=== PATIENT | female | born 1960 | race Caucasian/White ===

== ENCOUNTER → 2020-12-06 09:55 | Outpatient (BNVA) | payer SELFPAY | PROVIDERS: Family Provider Family Medicine; PCP Family Medicine; Visit Provider Dermatology | DX: Z01.89 Encounter for other specified special examinations (principal) ==

== ENCOUNTER → 2021-03-07 09:21 | Outpatient (BNVA) | payer SELFPAY | PROVIDERS: Family Provider Family Medicine; PCP Family Medicine; Visit Provider Physician Assistant | DX: Z00.00 Encounter for general adult medical examination without abnormal findings (principal) ==

== ENCOUNTER 2021-03-09 13:39 | Emergency (ER) | payer MEDICAID, SELFPAY ==
[2021-03-09 14:23] VITALS: BP 169/100; PULSE 78; RESP 16; TEMP 36.6; O2SAT 96; BMI 22.4
--- NOTE | 2021-03-09 16:10 | CTR_ITS ---
PROCEDURE INFORMATION: Exam: CT Abdomen And Pelvis With Contrast Exam date and time: 03/09/2021 4:10 PM Age: 60 years old Clinical indication: Pain and abnormal findings; Abnormal lab test; Other: T bili elevation; Abdominal pain; Localized; Left lower quadrant (llq); Prior surgery; Surgery type: Bladder sling, hyst; Patient HX: Intermittent epigastric pain, llq pain, diarrhea. Difficulty urinating x 2-3 weeks; Additional info: Evaluate for cancer, t bili elevation TECHNIQUE: Imaging protocol: Computed tomography of the abdomen and pelvis with contrast. Total images: 225 Radiation optimization: All CT scans at this facility use at least one of these dose optimization techniques: automated exposure control; mA and/or kV adjustment per patient size (includes targeted exams where dose is matched to clinical indication); or iterative reconstruction. Contrast material: OMNI 300; Contrast volume: 95 ml; Contrast route: INTRAVENOUS (IV); COMPARISON: No relevant prior studies available. RADIATION DOSE METRICS: Total DLP (mGy-cm): 1008.15 FINDINGS: Lungs: Limited assessment of the lung bases fails to reveal evidence for active cardiopulmonary process. Liver: No visible hepatic mass or cystic structure. Mild hepatomegaly. Gallbladder and bile ducts: Enlarged hydropic gallbladder. No gallbladder wall thickening or pericholecystic fluid. No visible cholelithiasis. Gallbladder measures upwards of 13.3 cm in length. Intra and extrahepatic biliary ectasia with the common bile duct measuring upwards of 12 mm in diameter. No visible choledocholithiasis. No visible cholangiocarcinoma. No visible ampullary neoplasm or pancreatic head mass. Pancreas: Diffuse pancreatic ductal ectasia measuring upwards of eight mm. No visible pancreatic mass. Mildly dilated pancreatic duct of [place]. Spleen: Spleen unremarkable. Adrenal glands: Adrenal glands unremarkable. Kidneys and ureters: No hydronephrosis or perinephric fluid. No visible nephrolithiasis. Tiny cortical cyst equator left kidney. No follow-up recommended. Stomach and bowel: Diverticulosis coli, primarily the sigmoid colon, without visible evidence for acute diverticulitis. Nonobstructive bowel pattern. No visible adynamic or reactive ileus. Appendix: The appendix is visualized and appears noninflamed. Intraperitoneal space: No visible pneumoperitoneum or intraperitoneal ascites. No visible evidence of mesenteric lymphadenitis or active mesenteritis/panniculitis. Vasculature: The abdominal aorta is nonaneurysmal. Mild arterial sclerotic disease. Portal vein patent. Lymph nodes: No current visible evidence of active mesenteric or retroperitoneal lymphadenopathy. Urinary bladder: Urinary bladder unremarkable. Reproductive: Status post hysterectomy. Bones/joints: No visible active or acute osseous pathology. Soft tissues: Unremarkable. CT/CT abdomen pelvis w con* [id number] IMPRESSION: 1. Intra and extrahepatic biliary ectasia with common bile duct measuring upwards of 12 mm. No visible choledocholithiasis. 2. Diffuse pancreatic ductal ectasia measuring upwards of 8 mm. No visible pancreatic mass. 3. Enlarged hydropic gallbladder. No visible cholelithiasis. 4. Diverticulosis coli without evidence for acute diverticulitis. COMMENTS: Consistent with the [employer]'s Incidental Findings Committee white paper (J Am Lashell Radiol 2018): Any incidental renal lesion less than 1 cm or classified as too small to characterize, or any incidental cystic renal lesion characterized as simple-appearing, is likely benign. No follow-up imaging is recommended for these lesions per consensus recommendations based on imaging criteria. Radiation Dose CTDIVOL = (mGy): DLP = 1008.15 (mGy-cm)
--- NOTE | 2021-03-09 16:17 | ED_ITS ---
HPI - General Adult General: Chief complaint: Abdominal Pain Stated complaint: Abdominal Pain, Lack of Urination Time Seen by Provider: 03/09/21 15:34 History of Present Illness: HPI narrative: Patient is a 60-year-old female who presents the emergency room for complaints of intermittent epigastric and LLQ abdominal pain and concerns for elevated bilirubin. Patient was seen 2 days ago for routine blood work and was found to have a bilirubin of 4.4. The last 3 weeks, patient has had decreased p.o. intake and difficulty swallowing has noticed that her eyes has become progressively more jaundiced. Patient says that she also had pale stool came to the emergency room for evaluation since she does not have any appointments sooner. Patient denies any nausea/vomiting, fever/chills, diarrhea, melena hematochezia,. Patient says that she has had difficulty peeing and has noticed her urine appears darker. No recent weight loss Onset: 3 weeks ago Duration:3 weeks Location:home Severity:mild Review of Systems Narrative: Constitutional: No fever, no chills. HEENT: No vision changes, +jaundiced eye CV: No chest pain, no palpitations PULM: no cough, no dyspnea. GI: +abdominal pain, no N/V/D. +pale stool : No dysuria, +dark urine MSKEL: No muscle pain SKIN: No new rashes, no lesions. NEURO: No headache, no focal weakness. HEME: No visible bruises PSYCH: Normal mood [facility] Female Reproductive History: Date of last menstrual period: 09/08/20 Physical Exam Narrative: EXAM NARRATIVE: Head: Atraumatic Eyes: PERRL, +mild scleral icterus ENT: Mucous membrane moist NECK: Supple, ROM intact LUNGS: LCTAB, no crackles/rhonchi CV: RRR ABDOMEN: No focal TTP. NO guarding rebound, guarding, rigidity. No CVA tenderness to percussion. Neg Sam/Neg McBurney's point tenderness, no suprabupic tenderness to palpation. EXTREMITY: Normal ROM SKIN: No rash or erythema NEURO: Awake and alert, no focal motor deficits PSYCH: Normal mood and affect Course Vital Signs: Vital signs: Vital Signs Temperature 97.9 F 03/09/21 14:23 Pulse Rate 90 03/09/21 19:14 Respiratory Rate 18 03/09/21 19:14 Blood Pressure 157/96 03/09/21 16:26 Pulse Oximetry 98 03/09/21 19:14 MDM - General Adult MDM Narrative: Medical decision making narrative: 60-year-old female presents the emergency room for concerns of lab abnormality specifically AST/ALT and T bili. In addition, patient has other complaints including diarrhea, diffuse abdominal pain, pale stool, and jaundice. On exam, patient is hemodynamically stable. + Scleral icterus. No abdominal tenderness to palpation. Lab work-up showed sodium of 127, potassium of 3.0, T bili of 6.5 with direct bili of 5.6. AST 458, ALT of 808. All these numbers are significantly improved compared to 2 days ago. UA negative for UTI. On CT abdomen pelvis, patient is found to have biliary ectasia with pancreatic ectasia. There is no visual ization of stone. The present time, patient has been afebrile, with normal white count. No suspicion for acute cholangitis further acute infection. Case was discussed with Dr. Monreal at [facility] in [place] who recommended outpatient ERCP for biopsy and additional follow-up. At this time, on reassessment, patient tolerated p.o. without any difficulty. I explained the electrolyte abnormality. Patient tolerated potassium tablet (40mEq) without any difficulty. I explained that her sodium was also a little bit on the lower side. Patient agrees with findings and plans to take salt tablets and eat salty food. Patient aware that she will receive a phone call from Dr. Monreal office in the next few days to schedule her for outpatient ERCP. Disposition: Discharge. Patient is given strict return precaution for any signs of fever chills, worsening abdominal pain, nausea/vomiting, worsening jaundice, or any new or concerning complaints. Lab Data: Labs: Lab Results 03/09/21 03/09/21 03/09/21 16:36 16:55 16:55 WBC 5.0 10^3/uL 10^3/ uL (4.0-10.0) RBC 4.05 10^6/uL L 10 ^6/uL (4.1-5.3) Hgb 12.1 g/dL g/dL (11.5-15.3) Hct 35.7 % L % (37.0-47.0) MCV 88.1 fl fl (81-99) MCH 29.9 pg pg (28.0-34.0) MCHC 33.9 g/dL g/dL (30.0-36.0) RDW 12.7 % % (12.1-15.1) Plt Count 179 10^3/cmm 10^3 /cmm (130-400) MPV 10.4 fL fL (7.4-10.4) Neut % (Auto) 63.7 % % Lymph % (Auto) 25.5 % % [place] % (Auto) 9.0 % % Eos % (Auto) 0.8 % % Baso % (Auto) 0.8 % % Neut # (Auto) 3.20 10^3/uL 10^3 /uL (1.8-7.7) Lymph # (Auto) 1.3 10^3/uL 10^3/ uL (0.8-4.8) [place] # (Auto) 0.5 10^3/uL 10^3/ uL (0.2-0.9) Eos # (Auto) 0.0 10^3/uL 10^3/ uL (0.0-0.8) Baso # (Auto) 0.0 10^3/uL 10^3/ uL (0.0-0.1) Nucleated RBC % (a uto) 0 % % Nucleated RBCs # 0.0 /100WBC /100W BC PT INR APTT Sodium 127 mmol/L L mmol /L (136-145) Potassium 3.0 mmol/L L mmol /L (3.5-5.1) Chloride 87 mmol/L L mmol/ L (98-107) Carbon Dioxide 25 mmol/L mmol/L (22-29) Anion Gap 18.0 (5-19) BUN 7 mg/dL L mg/dL (8-23) Creatinine 0.4 mg/dL L mg/dL (0.5-0.9) GFR Calculation 162.3 mL/min H mL /min (90-130) Glucose 112 mg/dL mg/dL (65-115) Calculated Osmolal ity 263 mOsm/kg L mOs m/kg (285-295) Calcium 9.3 mg/dL mg/dL (8.5-10.5) Total Bilirubin 6.5 mg/dL H mg/dL (0.15-1.2) Direct Bilirubin 5.60 mg/dL H mg/d L (0.00-0.30) GGT 387 U/L H U/L (5-36) AST 458 U/L H U/L (0-32) ALT 808 U/L H U/L (0-33) Alkaline Phosphata se 230 IU/L H IU/L (35-105) Total Protein 6.6 g/dL g/dL (6.6-8.7) Albumin 4.4 g/dL g/dL (3.5-5.2) Globulin 2.2 g/dL g/dL (1.3-4.6) Lipase 69 U/L H U/L (13-60) Urine Color Yellow (Yellow) Urine Appearance Clear (CLEAR) Urine pH 5 (5-7) Ur Specific Gravit y 1.010 (1.005-1.030) Urine Protein Neg (Negative) Urine Glucose (UA) Norm (Normal) Urine Ketones 1+ H (Negative) Urine Blood Neg (Negative) Urine Nitrate Negative (Negative) Urine Bilirubin Neg (Negative) Urine Urobilinogen Norm mg/dL mg/dL (Negative) Ur Leukocyte Sada ase Negative (Negative) 03/09/21 16:55 WBC RBC Hgb Hct MCV MCH MCHC RDW Plt Count MPV Neut % (Auto) Lymph % (Auto) [place] % (Auto) Eos % (Auto) Baso % (Auto) Neut # (Auto) Lymph # (Auto) [place] # (Auto) Eos # (Auto) Baso # (Auto) Nucleated RBC % (a uto) Nucleated RBCs # PT 13.10 SECONDS SEC ONDS (12.1-14.9) INR 0.96 (0.8-1.2) APTT 33.3 SECONDS SECO NDS (23.9-36.7) Sodium Potassium Chloride Carbon Dioxide Anion Gap BUN Creatinine GFR Calculation Glucose Calculated Osmolal ity Calcium Total Bilirubin Direct Bilirubin GGT AST ALT Alkaline Phosphata se Total Protein Albumin Globulin Lipase Urine Color Urine Appearance Urine pH Ur Specific Gravit y Urine Protein Urine Glucose (UA) Urine Ketones Urine Blood Urine Nitrate Urine Bilirubin Urine Urobilinogen Ur Leukocyte Sada ase Imaging Data^: Other Imaging: Radiologist's impression: [address] [id number] Scan ReportSigned Patient: Angelique Aggarwal #: [id number]: 1960Acct#:[id number]/Sex: 60 / FADM Date: 03/09/21Loc: ERRoom/Bed:Attending Dr: Ordering Provider/Ordering MD: Yee Edwards MD Date of Service: 03/09/21 Procedure(s): CT abdomen pelvis w con* [id number] Accession Number(s): [id number] Report Number: [id number] PROCEDURE INFORMATION: Exam: CT Abdomen And Pelvis With Contrast Exam date and time: 03/09/2021 4:10 PM Age: 60 years old Clinical indication: Pain and abnormal findings; Abnormal lab test; Other: T bili elevation; Abdominal pain; Localized; Left lower quadrant (llq); Prior surgery; Surgery type: Bladder sling, hyst; Patient HX: Intermittent epigastric pain, llq pain, diarrhea. Difficulty urinating x 2-3 weeks; Additional info: Evaluate for cancer, t bili elevation TECHNIQUE: Imaging protocol: Computed tomography of the abdomen and pelvis with contrast. Total images: 225 Radiation optimization: All CT scans at this facility use at least one of these dose optimization techniques: automated exposure control; mA and/or kV adjustment per patient size (includes targeted exams where dose is matched to clinical indication); or iterative reconstruction. Contrast material: OMNI 300; Contrast volume: 95 ml; Contrast route: INTRAVENOUS (IV); COMPARISON: No relevant prior studies available. RADIATION DOSE METRICS: Total DLP (mGy-cm): 1008.15 FINDINGS: Lungs: Limited assessment of the lung bases fails to reveal evidence for active cardiopulmonary process. Liver: No visible hepatic mass or cystic structure. Mild hepatomegaly. Gallbladder and bile ducts: Enlarged hydropic gallbladder. No gallbladder wall thickening or pericholecystic fluid. No visible cholelithiasis. Gallbladder measures upwards of 13.3 cm in length. Intra and extrahepatic biliary ectasia with the common bile duct measuring upwards of 12 mm in diameter. No visible choledocholithiasis. No visible cholangiocarcinoma. No visible ampullary neoplasm or pancreatic head mass. Pancreas: Diffuse pancreatic ductal ectasia measuring upwards of eight mm. No visible pancreatic mass. Mildly dilated pancreatic duct of [place]. Spleen: Spleen unremarkable. Adrenal glands: Adrenal glands unremarkable. Kidneys and ureters: No hydronephrosis or perinephric fluid. No visible nephrolithiasis. Tiny cortical cyst equator left kidney. No follow-up recommended. Stomach and bowel: Diverticulosis coli, primarily the sigmoid colon, without visible evidence for acute diverticulitis. Nonobstructive bowel pattern. No visible adynamic or reactive ileus. Appendix: The appendix is visualized and appears noninflamed. Intraperitoneal space: No visible pneumoperitoneum or intraperitoneal ascites. No visible evidence of mesenteric lymphadenitis or active mesenteritis/panniculitis. Vasculature: The abdominal aorta is nonaneurysmal. Mild arterial sclerotic disease. Portal vein patent. Lymph nodes: No current visible evidence of active mesenteric or retroperitoneal lymphadenopathy. Urinary bladder: Urinary bladder unremarkable. Reproductive: Status post hysterectomy. Bones/joints: No visible active or acute osseous pathology. Soft tissues: Unremarkable. CT/CT abdomen pelvis w con* [id number] IMPRESSION: 1. Intra and extrahepatic biliary ectasia with common bile duct measuring upwards of 12 mm. No visible choledocholithiasis. 2. Diffuse pancreatic ductal ectasia measuring upwards of 8 mm. No visible pancreatic mass. 3. Enlarged hydropic gallbladder. No visible cholelithiasis. 4. Diverticulosis coli without evidence for acute diverticulitis. COMMENTS: Consistent with the [employer]'s Incidental Findings Committee white paper (J Am Lashell Radiol 2018): Any incidental renal lesion less than 1 cm or classified as too small to characterize, or any incidental cystic renal lesion characterized as simple-appearing, is likely benign. No follow-up imaging is recommended for these lesions per consensus recommendations based on imaging criteria. Radiation Dose CTDIVOL = (mGy): DLP = 1008.15 (mGy-cm) Dictated By:Rubens Franco By:Rubens Franco Date/Time:03/09/21 1728DD/ [facility] [id number] Scan ReportSigned Patient: Angelique Aggarwal #: [id number]: 1960Acct#:[id number]/Se x: 60 / FADM Date: 03/09/21Loc: ERRoom/Bed:Attending Dr: Ordering Provider/Ordering MD: Yee Edwards MD Date of Service: 03/09/21 Procedure(s): CT abdomen pelvis w con* [id number] Accession Number(s): [id number] Report Number: [id number] PROCEDURE INFORMATION: Exam: CT Abdomen And Pelvis With Contrast Exam date and time: 03/09/2021 4:10 PM Age: 60 years old Clinical indication: Pain and abnormal findings; Abnormal lab test; Other: T bili elevation; Abdominal pain; Localized; Left lower quadrant (llq); Prior surgery; Surgery type: Bladder sling, hyst; Patient HX: Intermittent epigastric pain, llq pain, diarrhea. Difficulty urinating x 2-3 weeks; Additional info: Evaluate for cancer, t bili elevation TECHNIQUE: Imaging protocol: Computed tomography of the abdomen and pelvis with contrast. Total images: 225 Radiation optimization: All CT scans at this facility use at least one of these dose optimization techniques: automated exposure control; mA and/or kV adjustment per patient size (includes targeted exams where dose is matched to clinical indication); or iterative reconstruction. Contrast material: OMNI 300; Contrast volume: 95 ml; Contrast route: INTRAVENOUS (IV); COMPARISON: No relevant prior studies available. RADIATION DOSE METRICS: Total DLP (mGy-cm): 1008.15 FINDINGS: Lungs: Limited assessment of the lung bases fails to reveal evidence for active cardiopulmonary process. Liver: No visible hepatic mass or cystic structure. Mild hepatomegaly. Gallbladder and bile ducts: Enlarged hydropic gallbladder. No gallbladder wall thickening or pericholecystic fluid. No visible cholelithiasis. Gallbladder measures upwards of 13.3 cm in length. Intra and extrahepatic biliary ectasia with the common bile duct measuring upwards of 12 mm in diameter. No visible choledocholithiasis. No visible cholangiocarcinoma. No visible ampullary neoplasm or pancreatic head mass. Pancreas: Diffuse pancreatic ductal ectasia measuring upwards of eight mm. No visible pancreatic mass. Mildly dilated pancreatic duct of [place]. Spleen: Spleen unremarkable. Adrenal glands: Adrenal glands unremarkable. Kidneys and ureters: No hydronephrosis or perinephric fluid. No visible nephrolithiasis. Tiny cortical cyst equator left kidney. No follow-up recommended. Stomach and bowel: Diverticulosis coli, primarily the sigmoid colon, without visible evidence for acute diverticulitis. Nonobstructive bowel pattern. No visible adynamic or reactive ileus. Appendix: The appendix is visualized and appears noninflamed. Intraperitoneal space: No visible pneumoperitoneum or intraperitoneal ascites. No visible evidence of mesenteric lymphadenitis or active mesenteritis/panniculitis. Vasculature: The abdominal aorta is nonaneurysmal. Mild arterial sclerotic disease. Portal vein patent. Lymph nodes: No current visible evidence of active mesenteric or retroperitoneal lymphadenopathy. Urinary bladder: Urinary bladder unremarkable. Reproductive: Status post hysterectomy. Bones/joints: No visible active or acute osseous pathology. Soft tissues: Unremarkable. CT/CT abdomen pelvis w con* [id number] IMPRESSION: 1. Intra and extrahepatic biliary ectasia with common bile duct measuring upwards of 12 mm. No visible choledocholithiasis. 2. Diffuse pancreatic ductal ectasia measuring upwards of 8 mm. No visible pancreatic mass. 3. Enlarged hydropic gallbladder. No visible cholelithiasis. 4. Diverticulosis coli without evidence for acute diverticulitis. COMMENTS: Consistent with the [employer] [place]'s Incidental Findings Committee white paper (J Am Lashell Radiol 2018): Any incidental renal lesion less than 1 cm or classified as too small to characterize, or any incidental cystic renal lesion characterized as simple-appearing, is likely benign. No follow-up imaging is recommended for these lesions per consensus recommendations based on imaging criteria. Radiation Dose CTDIVOL = (mGy): DLP = 1008.15 (mGy-cm) Dictated By:Rubens Franco By:Rubens Franco Date/Time:03/09/211727DD/ 25 Discharge Plan Discharge Patient Disposition: Home Clinical Impression: Elevated bilirubin, Elevated AST (SGOT), Elevated ALT measurement, Biliary ectasia, Hyponatremia, Hypokalemia Condition: Stable Prescriptions: No Action lisinopril-hydrochlorothiazide 20-12.5 mg tablet 1 tab PO QAM RF: 0 Pepcid 20 mg Tablet 20 mg PO DAILY PRN (Reason: Acid Reflux) RF: 0 Pepto-Bismol 262 mg Tablet,Chewable 262 mg PO PRN RF: 0 fluticasone propionate 50 mcg/actuation spray,suspension 2 spray INTRANASAL DAILY PRN (Reason: Allergy Symptoms) RF: 0 Discharge Orders: Discharge ED (Routine); Ordered 03/09/21 Ordered By: Yee Edwards Referrals: Kristina Orellana PA [Primary Care Provider] - Discharge Diet: Advance as tolerated Discharge Activity: Resume usual activity Patient Instructions: Endoscopic Retrograde Cholangiopancreatography (GEN), Magnetic Resonance Cholangiopancreatography (ED), Jaundice (ED) Activity Restrictions/Additional Instructions: [facility] [place], [place] [id number] Scan ReportSigned Patient: Angelique Aggarwal #: [id number]: 1960Acct#:[id number]/Sex: 60 / FADM Date: 03/09/21Loc: ERRoom/Bed:A ttending Dr: Ordering Provider/Ordering MD: Yee Edwards MD Date of Service: 03/09/21 Procedure(s): CT abdomen pelvis w con* [id number] Accession Number(s): [id number] Report Number: [id number] PROCEDURE INFORMATION: Exam: CT Abdomen And Pelvis With Contrast Exam date and time: 03/09/2021 4:10 PM Age: 60 years old Clinical indication: Pain and abnormal findings; Abnormal lab test; Other: T bili elevation; Abdominal pain; Localized; Left lower quadrant (llq); Prior surgery; Surgery type: Bladder sling, hyst; Patient HX: Intermittent epigastric pain, llq pain, diarrhea. Difficulty urinating x 2-3 weeks; Additional info: Evaluate for cancer, t bili elevation TECHNIQUE: Imaging protocol: Computed tomography of the abdomen and pelvis with contrast. Total images: 225 Radiation optimization: All CT scans at this facility use at least one of these dose optimization techniques: automated exposure control; mA and/or kV adjustment per patient size (includes targeted exams where dose is matched to clinical indication); or iterative reconstruction. Contrast material: OMNI 300; Contrast volume: 95 ml; Contrast route: INTRAVENOUS (IV); COMPARISON: No relevant prior studies available. RADIATION DOSE METRICS: Total DLP (mGy-cm): 1008.15 FINDINGS: Lungs: Limited assessment of the lung bases fails to reveal evidence for active cardiopulmonary process. Liver: No visible hepatic mass or cystic structure. Mild hepatomegaly. Gallbladder and bile ducts: Enlarged hydropic gallbladder. No gallbladder wall thickening or pericholecystic fluid. No visible cholelithiasis. Gallbladder measures upwards of 13.3 cm in length. Intra and extrahepatic biliary ectasia with the common bile duct measuring upwards of 12 mm in diameter. No visible choledocholithiasis. No visible cholangiocarcinoma. No visible ampullary neoplasm or pancreatic head mass. Pancreas: Diffuse pancreatic ductal ectasia measuring upwards of eight mm. No visible pancreatic mass. Mildly dilated pancreatic duct of [place]. Spleen: Spleen unremarkable. Adrenal glands: Adrenal glands unremarkable. Kidneys and ureters: No hydronephrosis or perinephric fluid. No visible nephrolithiasis. Tiny cortical cyst equator left kidney. No follow-up recommended. Stomach and bowel: Diverticulosis coli, primarily the sigmoid colon, without visible evidence for acute diverticulitis. Nonobstructive bowel pattern. No visible adynamic or reactive ileus. Appendix: The appendix is visualized and appears noninflamed. Intraperitoneal space: No visible pneumoperitoneum or intraperitoneal ascites. No visible evidence of mesenteric lymphadenitis or active mesenteritis/panniculitis. Vasculature: The abdominal aorta is nonaneurysmal. Mild arterial sclerotic disease. Portal vein patent. Lymph nodes: No current visible evidence of active mesenteric or retroperitoneal lymphadenopathy. Urinary bladder: Urinary bladder unremarkable. Reproductive: Status post hysterectomy. Bones/joints: No visible active or acute osseous pathology. Soft tissues: Unremarkable. CT/CT abdomen pelvis w con* [id number] IMPRESSION: 1. Intra and extrahepatic biliary ectasia with common bile duct measuring upwards of 12 mm. No visible choledocholithiasis. 2. Diffuse pancreatic ductal ectasia measuring upwards of 8 mm. No visible pancreatic mass. 3. Enlarged hydropic gallbladder. No visible cholelithiasis. 4. Diverticulosis coli without evidence for acute diverticulitis. COMMENTS: Consistent with the [place] [place] [employer]'s Incidental Findings Committee white paper (J Am Lashell Radiol 2018): Any incidental renal lesion less than 1 cm or classified as too small to characterize, or any incidental cystic renal lesion characterized as simple-appearing, is likely benign. No follow-up imaging is recommended for these lesions per consensus recommendations based on imaging criteria. Radiation Dose CTDIVOL = (mGy): DLP = 1008.15 (mGy-cm) Dictated By:Rubens Franco By:Rubens Franco Date/Time:03/09/218DD/ 172 Coding Level of Care Code ED Shrinker for [facility] [place]
[2021-03-09 16:26] VITALS: BP 157/96; PULSE 80; RESP 18; O2SAT 97
[2021-03-09] MEDS: iohexol 300 mg/mL 100 mL Btl IV (16:38)
[2021-03-09] MEDS: sodium chloride 0.9% 1,000 ML 999 ML IV (16:55)
[2021-03-09 17:08] LABS: Add Urine Microscopic? NO; Charge for UA Resulting for Rev
[2021-03-09 17:09] LABS: Basophils % 0.8 %; Eosinophils % 0.8 %; Hematocrit 35.7 % (37.0-47.0); Hemoglobin 12.1 g/dL (11.5-15.3); Lymphocytes # 1.3 10^3/uL (0.8-4.8); Lymphocytes % 25.5 %; Mean Corpuscular HGB Conc 33.9 g/dL (30.0-36.0); Mean Corpuscular Hemoglobin 29.9 pg (28.0-34.0); Mean Corpuscular Volume 88.1 fl (81-99); Mean Platelet Volume 10.4 fL (7.4-10.4); Monocytes # 0.5 10^3/uL (0.2-0.9); Neutrophils % 63.7 %; Nucleated Red Blood Cells % 0 %; Platelet Count 179 10^3/cmm (130-400); Red Blood Count 4.05 10^6/uL (4.1-5.3); Red Cell Distribution Width 12.7 % (12.1-15.1)
[2021-03-09 17:23] LABS: Bilirubin Urine Neg (Negative); Blood Urine Neg (Negative); Glucose Urine UA Norm (Normal); Ketones Urine 1+ (Negative); Leukocyte Esterase Urine Negative (Negative); Nitrate Urine Negative (Negative); Protein Urine Neg (Negative); Urine Appearance Clear (CLEAR); Urine Color Yellow (Yellow); Urobilinogen Urine Norm (Negative); pH Urine 5 (5-7)
[2021-03-09 17:38] LABS: Albumin Level 4.4 g/dL (3.5-5.2); Alkaline Phosphatase 230 IU/L (35-105); Aspartate Amino Transferase 458 U/L (0-32); Blood Urea Nitrogen 7 mg/dL (8-23); Calcium 9.3 mg/dL (8.5-10.5); Carbon Dioxide 25 mmol/L (22-29); Chloride 87 mmol/L (98-107); Gamma Glutamyl Transferase 387 U/L (5-36); Globulin 2.2 g/dL (1.3-4.6); Glomerular Filtration Rate 162.3 mL/min (90-130); Glucose 112 mg/dL (65-115); Lipase 69 U/L (13-60); Osmolality Calculated 263 mOsm/kg (285-295); Sodium 127 mmol/L (136-145); Total Bilirubin 6.5 mg/dL (0.15-1.2); Total Protein 6.6 g/dL (6.6-8.7)
[2021-03-09 17:50] LABS: Alanine Aminotransferase 808 U/L (0-33)
[2021-03-09 18:55] LABS: INR 0.96 (0.8-1.2)
[2021-03-09 18:56] LABS: Partial Thromboplastin Time 33.3 SECONDS (23.9-36.7)
[2021-03-09] MEDS: potassium chloride ER 20 mEq Tablet 40 MEQ PO (19:09)
[2021-03-09 19:14] VITALS: PULSE 90; RESP 18; O2SAT 98
== END 2021-03-09 19:16 | disposition home or self-care (01) ==
PROVIDERS: Emergency Provider Emergency Medicine; PCP Physician Assistant
DX: E87.1 Hypo-osmolality and hyponatremia (principal); E87.6 Hypokalemia; E80.6 Other disorders of bilirubin metabolism; R74.01 Elevation of levels of liver transaminase levels; K83.8 Other specified diseases of biliary tract
CPT/HCPCS: 74177; 80053; 81003; 82248; 82977; 83690; 85025; 85610; 85730; 96360; 99283; J7030; Q9967

== ENCOUNTER 2021-05-18 13:14 | Emergency (ER) | payer BC, MEDICAID, SELFPAY ==
[2021-05-18] VITALS (9 sets, daily range): BP systolic 117–129; BP diastolic 64–75; PULSE 62–79; RESP 16–19; TEMP 36.7; O2SAT 97–100; BMI 22.9
--- NOTE | 2021-05-18 13:55 | ED_ITS ---
HPI - Fever General: Chief Complaint: Fever Stated Complaint: FEVER/R ABD PAIN/SENT FROM Time Seen by Provider: 05/18/21 13:54 History of Present Illness: HPI Narrative: Ms Aggarwal is a 60-year-old lady with significant recent history of biliary stent after ERCP and subsequently found to have pancreatic cancer who is not yet started chemotherapy who presents to the emergency department due to abdominal pain. Symptom onset was 4 days ago, she notes right upper quadrant abdominal pain which is sharp and even with minimal palpation. At times it catches her breath. She endorses associated fever and generalized malaise. She has had poor p.o. intake. No acute changes in bowel habits or hematemesis. No other focal source of infection. Overall the course of symptoms has persisted. Intensity is moderate to severe when present. No other known specific changes in health, exacerbating, or relieving factors identified. Review of Systems General: Reports: 10 or more systems reviewed and unremarkable except in HPI and below [facility] ED Female Reproductive History: Date of last menstrual period: 09/08/20 Physical Exam Narrative: EXAM NARRATIVE: GENERAL/CONSTITUTIONAL -somewhat ill-appearing. No acute distress. Eyes -no scleral icterus, no conjunctival injection ENMT - Atraumatic external nose and ears. Moist mucous membranes NECK - supple. trachea midline CARDIOVASCULAR - regular rate and rhythm. Normal peripheral perfusion RESPIRATORY -clear to auscultation bilaterally. ABDOMEN/GI -right upper quadrant abdominal tenderness to palpation, no evidence of remote peritonitis. MSK - Extremities without obvious deformity or tenderness to palpation SKIN - Warm, Dry NEURO - alert and appropriately oriented. Moves all extremities equally. Course ED course: - Patient was seen and evaluated by me at bedside - Patient placed on cardiac monitors, IV access obtained - Initial evaluation notable for no jaundice but patient does have right upper quadrant tenderness to palpation. Patient is nontoxic. - Labs notable for no leukocytosis. Metabolic panel notable for hypokalemia, replenishment ordered. Additional, more concerning findings, include elevated total bilirubin, elevated AST and ALT and alk phos. - Imaging notable for increased distention of biliary and pancreatic duct concerning for stent malfunction. - Medical decision making is highly complex given that I do not have imaging or laboratory studies in the interval since stent placement, records requested by have not arrived yet. I did discuss the case with the initial stent placing facility GI on air host. He agrees that findings are very concerning for stent malfunction especially given elevated bilirubin. Almost certainly the patient's labs had improved with normalization of bilirubin after stenting. Unfortunately they do not have beds to accept transfer. - Upon serial reexamination after treatment the patient was mildly improved. - Given findings and history of fevers antibiotics ordered. - Based on patient history, evaluation, labs, and imaging as interpreted the most likely cause of the patient's condition is biliary stent malfunction. - The results of ED evaluation were discussed with the patient including plan for transfer to a facility that has capability to manage biliary stent malfunction including ERCP. - Patient accepted to [facility] in [facility], discussed with accepting provider and GI. - Patient care handed off to overnight ED physician pending transport out of emergency department. Vital Signs: Vital signs: Vital Signs Temperature 98.1 F 05/18/21 13:36 Pulse Rate 65 05/18/21 18:00 Respiratory Rate 17 05/18/21 18:00 Blood Pressure 114/74 05/19/21 00:00 Pulse Oximetry 100 05/18/21 19:00 MDM - Fever Medical Records: Attestation: I reviewed the patient's medical records. Lab Data: Attestation: I reviewed the patient's lab results. Labs: Lab Results 05/18/21 05/18/21 05/18/21 14:20 14:20 14:30 WBC 6.6 10^3/uL 10^3/ uL (4.0-10.0) RBC 4.07 10^6/uL L 10 ^6/uL (4.1-5.3) Hgb 12.0 g/dL g/dL (11.5-15.3) Hct 35.4 % L % (37.0-47.0) MCV 87.0 fl fl (81-99) MCH 29.5 pg pg (28.0-34.0) MCHC 33.9 g/dL g/dL (30.0-36.0) RDW 12.8 % % (12.1-15.1) Plt Count 144 10^3/cmm 10^3 /cmm (130-400) MPV 10.8 fL H fL (7.4-10.4) Neut % (Auto) 86.8 % % Lymph % (Auto) 6.2 % % [place] % (Auto) 6.2 % % Eos % (Auto) 0.2 % % Baso % (Auto) 0.3 % % Neut # (Auto) 5.71 10^3/uL 10^3 /uL (1.8-7.7) Lymph # (Auto) 0.4 10^3/uL L 10^ 3/uL (0.8-4.8) [place] # (Auto) 0.4 10^3/uL 10^3/ uL (0.2-0.9) Eos # (Auto) 0.0 10^3/uL 10^3/ uL (0.0-0.8) Baso # (Auto) 0.0 10^3/uL 10^3/ uL (0.0-0.1) Nucleated RBC % (a uto) 0 % % Nucleated RBCs # 0.0 /100WBC /100W BC Sodium 134 mmol/L L mmol /L (136-145) Potassium 2.8 mmol/L L* mmo l/L (3.5-5.1) Chloride 97 mmol/L L mmol/ L (98-107) Carbon Dioxide 25 mmol/L mmol/L (22-29) Anion Gap 14.8 (5-19) BUN 4 mg/dL L mg/dL (8-23) Creatinine 0.6 mg/dL mg/dL (0.5-0.9) GFR Calculation 101.6 mL/min mL/m in (90-130) Glucose 159 mg/dL H mg/dL (65-115) Calculated Osmolal ity 278 mOsm/kg L mOs m/kg (285-295) Calcium 8.0 mg/dL L mg/dL (8.5-10.5) Magnesium 1.8 mg/dL mg/dL (1.7-2.3) Total Bilirubin 2.6 mg/dL H mg/dL (0.15-1.2) AST 441 U/L H U/L (0-32) ALT 341 U/L H U/L (0-33) Alkaline Phosphata se 591 IU/L H IU/L (35-105) Total Protein 6.1 g/dL L g/dL (6.6-8.7) Albumin 3.9 g/dL g/dL (3.5-5.2) Globulin 2.2 g/dL g/dL (1.3-4.6) Lipase 5 U/L L U/L (13-60) Urine Color Urine Appearance Urine pH Ur Specific Gravit y Urine Protein Urine Glucose (UA) Urine Ketones Urine Blood Urine Nitrate Urine Bilirubin Urine Urobilinogen Ur Leukocyte Sada ase SARS-CoV-2 Ag (Rap id) 05/18/21 05/18/21 16:20 20:20 WBC RBC Hgb Hct MCV MCH MCHC RDW Plt Count MPV Neut % (Auto) Lymph % (Auto) Th[place]mort[place] % (Auto) Eos % (Auto) Baso % (Auto) Neut # (Auto) Lymph # (Auto) [place]mort[place] # (Auto) Eos # (Auto) Baso # (Auto) Nucleated RBC % (a uto) Nucleated RBCs # Sodium Potassium Chloride Carbon Dioxide Anion Gap BUN Creatinine GFR Calculation Glucose Calculated Osmolal ity Calcium Magnesium Total Bilirubin AST ALT Alkaline Phosphata se Total Protein Albumin Globulin Lipase Urine Color Yellow (Yellow) Urine Appearance Clear (CLEAR) Urine pH 7 (5-7) Ur Specific Gravit y 1.005 (1.005-1.030) Urine Protein Neg (Negative) Urine Glucose (UA) Norm (Normal) Urine Ketones Negative (Negative) Urine Blood Neg (Negative) Urine Nitrate Negative (Negative) Urine Bilirubin Neg (Negative) Urine Urobilinogen 1 mg/dL H mg/dL (Negative) Ur Leukocyte Sada ase Negative (Negative) SARS-CoV-2 Ag (Rap id) Negative (Negative) EKG Data^: EKG 1: Attestation: I personally reviewed and interpreted this EKG as follows: EKG interpretation date: 05/18/21 EKG interpretation time: 15:53 Interpretation: Twelve-lead EKG shows a regular rhythm at a rate of 63. MS interval 149, QRS duration 92, QTc 406. Normal axis. Interpretation: Sinus rhythm. Discharge Plan Discharge Patient Disposition: Admitted As Inpatient Coding Level of Care Code ED Package Car Driver for Vasyl Le
--- NOTE | 2021-05-18 14:04 | CTR_ITS ---
PROCEDURE INFORMATION: Exam: CT Abdomen And Pelvis With Contrast Exam date and time: 05/18/2021 2:04 PM Age: 60 years old Clinical indication: Abdominal pain; Prior surgery; Surgery type: Hyst, gb, bladder sling; Additional info: Ruq pain, stent, cancer TECHNIQUE: Imaging protocol: Computed tomography of the abdomen and pelvis with contrast. Radiation optimization: All CT scans at this facility use at least one of these dose optimization techniques: automated exposure control; mA and/or kV adjustment per patient size (includes targeted exams where dose is matched to clinical indication); or iterative reconstruction. Contrast material: OMNI 300; Contrast volume: 95 ml; Contrast route: INTRAVENOUS (IV); COMPARISON: CT abdomen pelvis w con* [id number] 03/09/2021 4:34 PM RADIATION DOSE METRICS: Total DLP (mGy-cm): 877.17 FINDINGS: Liver: Normal. No mass. Gallbladder and bile ducts: There is a biliary stent. There is biliary duct dilation measuring 1.6 cm which has worsened (previously 1.2 cm). There is pneumobilia. Pancreas: There is probable edema of the pancreatic head and uncinate process. There is pancreatic duct dilation which measures 1.2 cm (previously 1 cm). No pancreatic calcification. Spleen: Normal. No splenomegaly. Adrenal glands: Normal. No mass. Kidneys and ureters: Normal. No hydronephrosis. Stomach and bowel: Colonic diverticula are present although there are no CT findings to suggest diverticulitis. No bowel obstruction or wall thickening. Evaluation is limited without intraluminal contrast. Appendix: The appendix is visualized and appears normal. Intraperitoneal space: There is a small amount of fluid in the pelvis. No free air. No significant fluid collection. Vasculature: Unremarkable. No abdominal aortic aneurysm. Lymph nodes: Unremarkable. No enlarged lymph nodes. Urinary bladder: Unremarkable as visualized. Reproductive: There has been a hysterectomy. Bones/joints: Unremarkable. No acute fracture. Soft tissues: Unremarkable. CT/CT abdomen pelvis w con* [id number] IMPRESSION: When compared with 03/09/2021, there is a new biliary stent. There is increasing dilation of the biliary and pancreatic ducts. Clinical correlation is advised. There is questionable pancreatitis of the pancreatic head and uncinate process. Radiation Dose CTDIVOL = (mGy): DLP = 877.17 (mGy-cm)
--- NOTE | 2021-05-18 14:04 | CTR_ITS ---
PROCEDURE INFORMATION: Exam: CT Head Without Contrast Exam date and time: 05/18/2021 2:04 PM Age: 60 years old Clinical indication: Other: Off balance; Additional info: Off balance, cancer, ? mets TECHNIQUE: Imaging protocol: Computed tomography of the head without contrast. Radiation optimization: All CT scans at this facility use at least one of these dose optimization techniques: automated exposure control; mA and/or kV adjustment per patient size (includes targeted exams where dose is matched to clinical indication); or iterative reconstruction. COMPARISON: No relevant prior studies available. RADIATION DOSE METRICS: Total DLP (mGy-cm): 721.5 FINDINGS: Brain: Mild volume loss and white matter disease are identified. There is no acute infarct or edema. No hemorrhage. Cerebral ventricles: No ventriculomegaly. Paranasal sinuses: Visualized sinuses are unremarkable. No fluid levels. Mastoid air cells: Visualized mastoid air cells are well aerated. Bones/joints: Unremarkable. No acute fracture. Soft tissues: Unremarkable. CT/CT head wo con* [id number] IMPRESSION: There are no acute concerning abnormalities. Radiation Dose CTDIVOL = (mGy): DLP = 721.5 (mGy-cm)
--- NOTE | 2021-05-18 14:04 | XR_ITS ---
WS: [id number] Portable AP upright chest, 05/18/2021 Clinical Data: pain, fever, ?origin Comparison: PA and lateral chest, 02/06/2011. Findings: No nodules, masses or effusions are seen. The heart is normal. The pulmonary vascularity is not increased. No pneumonia or pneumothorax is seen. There is minimal tortuosity of the aortic arch and descending thoracic aorta. Monitor leads on the chest wall. XR/XR chest 1V portable [id number] Impression: Atherosclerosis.
--- NOTE | 2021-05-18 14:05 | PC.PHAR ---
pt states her rach castano her lisinopril/hctz 20-12.5mg the end of feb or first of mar-pt states she only uses flonase
[2021-05-18 14:32] LABS: Basophils % 0.3 %; Eosinophils % 0.2 %; Hematocrit 35.4 % (37.0-47.0); Lymphocytes # 0.4 10^3/uL (0.8-4.8); Lymphocytes % 6.2 %; Mean Corpuscular HGB Conc 33.9 g/dL (30.0-36.0); Mean Corpuscular Hemoglobin 29.5 pg (28.0-34.0); Mean Platelet Volume 10.8 fL (7.4-10.4); Monocytes # 0.4 10^3/uL (0.2-0.9); Monocytes % 6.2 %; Neutrophils # 5.71 10^3/uL (1.8-7.7); Neutrophils % 86.8 %; Nucleated Red Blood Cells % 0 %; Platelet Count 144 10^3/cmm (130-400); Red Blood Count 4.07 10^6/uL (4.1-5.3); Red Cell Distribution Width 12.8 % (12.1-15.1); White Blood Count 6.6 10^3/uL (4.0-10.0)
[2021-05-18 14:47] LABS: Alanine Aminotransferase 341 U/L (0-33); Albumin Level 3.9 g/dL (3.5-5.2); Alkaline Phosphatase 591 IU/L (35-105); Anion Gap 14.8 (5-19); Aspartate Amino Transferase 441 U/L (0-32); Blood Urea Nitrogen 4 mg/dL (8-23); Carbon Dioxide 25 mmol/L (22-29); Chloride 97 mmol/L (98-107); Globulin 2.2 g/dL (1.3-4.6); Glomerular Filtration Rate 101.6 mL/min (90-130); Glucose 159 mg/dL (65-115); Lipase 5 U/L (13-60); Osmolality Calculated 278 mOsm/kg (285-295); Sodium 134 mmol/L (136-145); Total Bilirubin 2.6 mg/dL (0.15-1.2); Total Protein 6.1 g/dL (6.6-8.7)
[2021-05-18 14:49] LABS: Potassium 2.8 mmol/L (3.5-5.1)
--- NOTE | 2021-05-18 14:53 | ECG_ITS ---
[facility] Test Date: 2021-05-18 Pat Name: Angelique Aggarwal Department: Room: Gender: Female Head Of Marketing Analytics: : 1960 Requested By: Hernando Reynolds Order Number: [id number] Srinivas MD: Jeanine Benites M.D. Measurements Intervals [place] Rate: 63 P: 61 [place]: 149 QRS: 18 QRSD: 92 T: 26 QT: 398 QTc: 409 Interpretive Statements SINUS RHYTHM POSSIBLE RIGHT VENTRICULAR CONDUCTION DELAY [RSR (QR) IN V1/V2] No previous ECG available for comparison Electronically Signed On 05-18-2021 16:05:22 CLOTHES SEPARATOR by Jeanine Benites M.D. [id number]
[2021-05-18] MEDS: iohexol 300 mg/mL 100 mL Btl IV (14:58)
[2021-05-18 15:05] LABS: Magnesium 1.8 mg/dL (1.7-2.3)
[2021-05-18] MEDS: lidocaine 1% 5 ML in potassium chloride premix 100 ML 25 ML IV (15:47)
[2021-05-18] MEDS: sodium chloride 0.9% 1,000 ML 150 ML IV (15:48)
[2021-05-18 17:10] LABS: SARS Covid-2 Antigen Negative (Negative)
[2021-05-18] MEDS: piperacillin-tazobactam 4.5 GM in sodium chloride 0.9% (plus) 50 ML IV (19:28)
[2021-05-18 21:55] LABS: Add Urine Microscopic? NO; Charge for UA Resulting for Rev
[2021-05-18 22:04] LABS: Bilirubin Urine Neg (Negative); Blood Urine Neg (Negative); Glucose Urine UA Norm (Normal); Ketones Urine Negative (Negative); Leukocyte Esterase Urine Negative (Negative); Nitrate Urine Negative (Negative); Protein Urine Neg (Negative); Specific Gravity, Urine 1.005 (1.005-1.030); Urine Appearance Clear (CLEAR); Urine Color Yellow (Yellow); Urobilinogen Urine 1 mg/dL (Negative); pH Urine 7 (5-7)
[2021-05-19] VITALS: BP 114/74
[2021-05-19] MEDS: ondansetron 2 mg/ML SDV 2 mL 4 MG IVP (00:05)
[2021-05-19] MEDS: LORazepam 2 mg/mL INJ 1 mL 0.5 MG IVP (00:08)
== END 2021-05-19 00:10 | disposition admitted as inpatient to this hospital (09) ==
PROVIDERS: Emergency Provider Emergency Medicine
DX: R10.11 Right upper quadrant pain (principal); Z20.822 Contact with and (suspected) exposure to COVID-19; Z85.07 Personal history of malignant neoplasm of pancreas
CPT/HCPCS: 70450; 71045; 74177; 80053; 81003; 83690; 83735; 85025; 87040; 87426; 93005; 96365; 96367; 96375; 99285; J2060; J2405; J2543; J3475; J3480; J7030; Q9967

== ENCOUNTER 2021-06-02 08:30 | Outpatient (CLI) | payer BC, MEDICAID, SELFPAY ==
--- NOTE | 2021-06-02 18:27 | ONC CON_ITS ---
Dr. Rosenthal New Patient Note Patient: Angelique Aggarwal Unit #: [id number]: 1960 Dicatated By: Bob Rosentahl M.D.Date of Visit: Jun 02, 2021 Onc MED New Patient/Consult Referring Physician: David Monreal Chief Complaint: Pancreatic cancer. 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 On 03/09/2021 she presented to the emergency room with recent onset of jaundice. Her total bilirubin at that time was 6.5 mg/dL. Her liver enzymes were significantly elevated with SGOT 458/32 U/L, SGPT 808/33 U/L, and alkaline phosphatase 230/105 IU/L. Her CT abdomen/pelvis showed intra and extrahepatic biliary ectasia with common bile duct measuring upwards of 12 mm. There is diffuse pancreatic duct ectasia measuring upwards of 8 mm with no visible pancreatic mass. Also noted was enlarged hydropic gallbladder but with no visible cholelithiasis. On 03/15/2021 she underwent ERCP with placement of biliary stent. On 04/25/2021 she underwent endoscopic ultrasound which showed significant dilatation of the main pancreatic duct in the body and tail of the pancreas measuring up to 7 mm in diameter. A hypoechogenic mass measuring 2.8 x 2.3 cm was noted in the head of the pancreas. There was associated compression of the mesenteric vein. FNA biopsy of the mass showed adenocarcinoma. Her baseline CA 19-9 level was 170 U/mL. She had surgical consultation with on 05/22/2021. Given the associated SMV involvement, she was recommended to have neoadjuvant chemotherapy. On 05/24/2021 she underwent repeat ERCP with replacement of the biliary stent. At that time she also underwent EGD with dilatation of the pylorus and duodenum. She is seen now for further management. She has been feeling better generally following the recent ERCP procedure. She says her energy is okay, though not good. She is able to do light work. ECOG score is 1. She has good appetite now, but her weight is down at least 14 pounds. She does not have fever or night sweats. She has not had sore mouth or throat, and she does not have difficulty swallowing. She does not complain of cough, and she has not been having shortness of breath or chest pain. She has had some abdominal gas and bloating, but no nausea/vomiting and no acid reflux symptoms. She has had some mild abdominal discomfort. She was having diarrhea, but that is better now. She has not been aware of any blood in the stool. She has no complaints. She has no significant joint or bone pain. She has had a few headaches. She does not complain of dizziness. She has no numbness/paresthesia or other focal neurologic symptoms. Past Medical History: Her medical history includes gastroesophageal reflux disease and hypertension. Past Surgical History: Her surgical/procedural history includes ERCP with placement of biliary stent on 03/15/2021, endoscopic ultrasound with FNA biopsy of pancreatic head mass on 04/25/2021, and EGD and ERCP with replacement of biliary stent on 05/24/2021. Her only prior surgery was a hysterectomy and bladder suspension in 1999. Medications: Flonase 1 Strong(s) (of 50 mcg/act) Suspension Nasal daily Allergies: No Known Allergies. Social History: Ms. Aggarwal is . She has a history of smoking 1 pack of cigarettes daily for 25 years. She quit smoking in 2003. She does not drink alcohol. Family History: Father with an aortic aneurysm at age 67. Mother with colon cancer at age 76. She also had diabetes. A brother and a sister also are , cause unknown to the patient. Review Of Symptoms: Constitutional - She has been feeling better following the recent ERCP procedure. Her energy is okay, but not good. She is able to do light work. She still has good appetite. She has lost weight. She does not have fever or night sweats. ECOG score is 1, Eyes - No hearing loss. She has tinnitus. No change in vision, ENMT - No sinus congestion/drainage. No mouth sores. No sore throat or difficulty swallowing, Hematologic/Lymphatic - No abnormal bruising or bleeding, Respiratory - No shortness of breath. No cough. No pleuritic pain or hemoptysis, Cardiovascular - No angina pain. No palpitations, Gastrointestinal - She has had some abdominal gas and bloating, but no nausea/vomiting and no acid reflux symptoms. She has had some mild abdominal discomfort. She was having diarrhea, but that has improved. No blood in the stool or black stools, Genitourinary (F) - No dysuria or hematuria. No urinary frequency. No urgency or incontinence, Musculoskeletal - No joint or bone pain, Integumentary - No skin rash or other skin problems, Neurologic - She has had a few headaches. No dizziness. No numbness or tingling. No other focal neurologic symptoms, Psychiatric - She has been under some stress, but she otherwise does not complain of anxiety or depression. No insomnia. Vital Signs: Performed on Jun 02, 2021 11:12: 3, 0, 21.30, 1.64 sq.m, 65 in, 99 %, 89 /min, 16 /min, 138/91 mm(hg), 98.4 F, and 128 lbs (HIGH). Physical Examination: Constitutional - She appears to be in good general health, Eyes - Sclerae nonicteric. Conjunctivae clear, ENMT - No lesions noted in the oral cavity, Neck - No mass or thyromegaly, Hematologic/Lymphatic - No cervical, clavicular, or axillary adenopathy, Respiratory - Lungs are clear with good air movement bilaterally, Cardiovascular - Heart rhythm is regular. There is no murmur, gallop, or rub noted, Abdomen - Soft and non-tender. She does have evidence of weight loss. Liver and spleen are not enlarged. There is no abdominal mass or ascites noted and there is no inguinal adenopathy, Back/Spine - No spine or CVA tenderness noted, Extremities - No edema. Pedal pulses are palpable bilaterally, Integumentary - No rashes. No suspicious skin lesions noted, Neurologic - No focal neurologic deficits noted. Problem List: 1. Adenocarcinoma involving the head of the pancreas. By clinical evaluation, her disease appears to be stage IB (T2, N0, M0), but she was deemed an operable due to associated compression of the mesenteric vein. 2. History of hypertension, currently not requiring medication. 3. GERD. Problems Addressed with this Encounter and Plan: Patient with adenocarcinoma involving the head of the pancreas, initially presenting in February with obstructive jaundice. At that time she underwent ERCP with placement of biliary stent. Her endoscopic ultrasound on 04/25/2021 showed a pancreatic head mass measuring 2.8 x 2.3 cm. FNA biopsy was positive for adenocarcinoma. By ultrasound there was associated compression of the mesenteric vein, but there was no adenopathy noted, and there has been no evidence of metastatic disease by CT scan. As such, by clinical evaluation her disease appears to be stage IB (T2, N0, M0), but she was deemed an operable due to the associated mesenteric vein compression. She has been recommended to undergo neoadjuvant chemotherapy. Based on her relatively young age and good performance status, she would appear to be an appropriate candidate for the FOLFIRINOX chemotherapy regimen. We discussed the fact that this regimen does have the highest reported response rate, but that there is potential for significant toxicity which may include nausea/vomiting, mucositis, diarrhea, alopecia, weakness/fatigue, low blood counts, and neuropathy, among others. She is advised that the diarrhea, in particular, can be severe. Given her circumstances, though, I do believe that the more aggressive regimen is appropriate. She is tentatively scheduled for Port-A-Cath placement on the of this month. As such, I will tentatively plan to have her return to begin cycle 1 of FOLFIRINOX chemotherapy on 06/12/2021. She will be scheduled for planned IV hydration during the first week of cycle 1. In the meantime, I will contact Dr. Lopez regarding any further they may want to schedule prior to starting chemotherapy, abdominal MRI in particular. Signed By: Bob Rosenthal M.D. <<Signature on File>>
== END 2021-06-02 08:31 | disposition home or self-care (01) ==
PROVIDERS: Visit Provider Internal Medicine Medical Oncology
DX: C25.0 Malignant neoplasm of head of pancreas (principal); I10 Essential (primary) hypertension; K21.9 Gastro-esophageal reflux disease without esophagitis; Z87.891 Personal history of nicotine dependence
CPT/HCPCS: 99205

== ENCOUNTER 2021-07-17 06:44 | Outpatient (RCR) | payer BC, MEDICAID, SELFPAY ==
[2021-06-23 08:51] LABS: Eosinophils # 0.2 10^3/uL (0.0-0.8); Eosinophils % 4.6 %; Hemoglobin 11.4 g/dL (11.5-15.3); Lymphocytes # 1.3 10^3/uL (0.8-4.8); Lymphocytes % 31.6 %; Mean Corpuscular HGB Conc 32.6 g/dL (30.0-36.0); Mean Corpuscular Hemoglobin 28.9 pg (28.0-34.0); Mean Corpuscular Volume 88.6 fl (81-99); Mean Platelet Volume 11.3 fL (7.4-10.4); Monocytes # 0.2 10^3/uL (0.2-0.9); Monocytes % 4.6 %; Nucleated Red Blood Cells % 0 %; Platelet Count 139 10^3/cmm (130-400); Red Blood Count 3.95 10^6/uL (4.1-5.3); Red Cell Distribution Width 13.1 % (12.1-15.1); White Blood Count 4.1 10^3/uL (4.0-10.0)
[2021-06-26 08:52] LABS: Basophils % 0.7 %; Eosinophils # 0.1 10^3/uL (0.0-0.8); Eosinophils % 3.1 %; Hematocrit 35.1 % (37.0-47.0); Hemoglobin 11.9 g/dL (11.5-15.3); Lymphocytes # 1.1 10^3/uL (0.8-4.8); Lymphocytes % 26.8 %; Mean Corpuscular HGB Conc 33.9 g/dL (30.0-36.0); Mean Corpuscular Hemoglobin 29.8 pg (28.0-34.0); Mean Corpuscular Volume 87.8 fl (81-99); Monocytes # 0.2 10^3/uL (0.2-0.9); Monocytes % 5.5 %; Neutrophils # 2.69 10^3/uL (1.8-7.7); Neutrophils % 63.9 %; Nucleated Red Blood Cells % 0 %; Platelet Count 147 10^3/cmm (130-400); Red Cell Distribution Width 13.1 % (12.1-15.1); White Blood Count 4.2 10^3/uL (4.0-10.0)
[2021-06-26 09:13] LABS: Alanine Aminotransferase 15 U/L (0-33); Alkaline Phosphatase 84 IU/L (35-105); Aspartate Amino Transferase 17 U/L (0-32); Blood Urea Nitrogen 5 mg/dL (8-23); Calcium 8.2 mg/dL (8.5-10.5); Carbon Dioxide 23 mmol/L (22-29); Chloride 105 mmol/L (98-107); Glomerular Filtration Rate 101.6 mL/min (90-130); Glucose 222 mg/dL (65-115); Osmolality Calculated 294 mOsm/kg (285-295); Sodium 140 mmol/L (136-145); Total Bilirubin 0.5 mg/dL (0.15-1.2)
[2021-06-26 09:21] LABS: Carcinoembryonic Antigen 3.8 ng/mL (0.0-4.7)
[2021-06-26] MEDS: sodium chloride 0.9% 250 ML 75 ML IV (10:00)
[2021-06-26] MEDS: dextrose 5% 250 ML 75 ML IV (10:00)
[2021-06-26] MEDS: palonosetron 0.25 mg/5 mL SDV IV (10:10)
[2021-06-26] MEDS: fosaprepitant 150 MG in sodium chloride 0.9% 150 ML 300 MG IV (10:30)
[2021-07-03 14:07] LABS: Basophils % 0.7 %; Eosinophils # 0.2 10^3/uL (0.0-0.8); Hemoglobin 11.6 g/dL (11.5-15.3); Lymphocytes # 1.4 10^3/uL (0.8-4.8); Lymphocytes % 32.1 %; Mean Corpuscular HGB Conc 34.1 g/dL (30.0-36.0); Mean Corpuscular Hemoglobin 29.4 pg (28.0-34.0); Mean Corpuscular Volume 86.3 fl (81-99); Mean Platelet Volume 11.3 fL (7.4-10.4); Monocytes # 0.2 10^3/uL (0.2-0.9); Monocytes % 5.1 %; Neutrophils % 57.9 %; Nucleated Red Blood Cells % 0 %; Platelet Count 120 10^3/cmm (130-400); Red Blood Count 3.94 10^6/uL (4.1-5.3); Red Cell Distribution Width 12.5 % (12.1-15.1); White Blood Count 4.5 10^3/uL (4.0-10.0)
[2021-07-03 14:30] LABS: Alanine Aminotransferase 22 U/L (0-33); Alkaline Phosphatase 75 IU/L (35-105); Anion Gap 16.5 (5-19); Aspartate Amino Transferase 20 U/L (0-32); Blood Urea Nitrogen 9 mg/dL (8-23); Calcium 8.2 mg/dL (8.5-10.5); Carbon Dioxide 21 mmol/L (22-29); Chloride 102 mmol/L (98-107); Globulin 2.2 g/dL (1.3-4.6); Glomerular Filtration Rate 125.4 mL/min (90-130); Glucose 148 mg/dL (65-115); Osmolality Calculated 283 mOsm/kg (285-295); Potassium 3.5 mmol/L (3.5-5.1); Sodium 136 mmol/L (136-145); Total Bilirubin 0.3 mg/dL (0.15-1.2); Total Protein 6.2 g/dL (6.6-8.7)
[2021-07-10 08:38] LABS: Basophils % 0.7 %; Eosinophils # 0.1 10^3/uL (0.0-0.8); Eosinophils % 2.6 %; Hematocrit 31.8 % (37.0-47.0); Hemoglobin 10.9 g/dL (11.5-15.3); Lymphocytes # 0.8 10^3/uL (0.8-4.8); Lymphocytes % 31.2 %; Mean Corpuscular HGB Conc 34.3 g/dL (30.0-36.0); Mean Corpuscular Hemoglobin 29.5 pg (28.0-34.0); Mean Corpuscular Volume 86.2 fl (81-99); Mean Platelet Volume 10.8 fL (7.4-10.4); Monocytes # 0.2 10^3/uL (0.2-0.9); Monocytes % 7.8 %; Neutrophils # 1.55 10^3/uL (1.8-7.7); Neutrophils % 57.7 %; Nucleated Red Blood Cells % 0 %; Platelet Count 112 10^3/cmm (130-400); Red Blood Count 3.69 10^6/uL (4.1-5.3); Red Cell Distribution Width 13.1 % (12.1-15.1); White Blood Count 2.7 10^3/uL (4.0-10.0)
[2021-07-10 09:03] LABS: Alanine Aminotransferase 19 U/L (0-33); Albumin Level 3.9 g/dL (3.5-5.2); Alkaline Phosphatase 81 IU/L (35-105); Anion Gap 14.3 (5-19); Aspartate Amino Transferase 17 U/L (0-32); Blood Urea Nitrogen 5 mg/dL (8-23); Carbon Dioxide 23 mmol/L (22-29); Chloride 103 mmol/L (98-107); Globulin 1.9 g/dL (1.3-4.6); Glomerular Filtration Rate 101.6 mL/min (90-130); Glucose 177 mg/dL (65-115); Osmolality Calculated 286 mOsm/kg (285-295); Potassium 3.3 mmol/L (3.5-5.1); Sodium 137 mmol/L (136-145); Total Bilirubin 0.3 mg/dL (0.15-1.2); Total Protein 5.8 g/dL (6.6-8.7)
--- NOTE | 2021-07-12 09:28 | ONC FU_ITS ---
Dr. Rosenthal Patient Follow-Up Note Patient: Angelique Aggarwal Unit #: [id number]: 1960 Dicatated By: Bob Rosenthal M.D.Date of Visit:Jul 10, 2021 Onc Med Follow-up/Prog Note Chief Complaint: Pancreatic cancer. 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 On 03/09/2021 she presented to the emergency room with recent onset of jaundice. Her total bilirubin at that time was 6.5 mg/dL. Her liver enzymes were significantly elevated with SGOT 458/32 U/L, SGPT 808/33 U/L, and alkaline phosphatase 230/105 IU/L. Her CT abdomen/pelvis showed intra and extrahepatic biliary ectasia with common bile duct measuring upwards of 12 mm. There is diffuse pancreatic duct ectasia measuring upwards of 8 mm with no visible pancreatic mass. Also noted was enlarged hydropic gallbladder but with no visible cholelithiasis. On 03/15/2021 she underwent ERCP with placement of biliary stent. On 04/25/2021 she underwent endoscopic ultrasound which showed significant dilatation of the main pancreatic duct in the body and tail of the pancreas measuring up to 7 mm in diameter. A hypoechogenic mass measuring 2.8 x 2.3 cm was noted in the head of the pancreas. There was associated compression of the mesenteric vein. FNA biopsy of the mass showed adenocarcinoma. Her baseline CA 19-9 level was 170 U/mL. She had surgical consultation with on 05/22/2021. Given the associated SMV involvement, she was recommended to have neoadjuvant chemotherapy. On 05/24/2021 she underwent repeat ERCP with replacement of the biliary stent. At that time she also underwent EGD with dilatation of the pylorus and duodenum. I had seen her initially on 06/02/2021. She had good performance status, and she was recommended to begin neoadjuvant chemotherapy with the FOLFIRINOX regimen. She was agreeable, though she opted to delay starting her treatment. Her other medical illnesses have been limited to hypertension and GERD. Her only prior surgery was a hysterectomy and bladder suspension in 1999. She has a history of smoking 1 pack of cigarettes daily for 25 years, but she quit smoking in 2003. INTERIM HISTORY: She began cycle 1 of neoadjuvant FOLFIRINOX on 06/26/2021. Her baseline CA 19-9 level was 313.0 U/mL. She experienced some side effects during the treatment, including jitteriness and feeling of apprehension. She did not have hypotension or difficulty breathing, and the symptoms improved somewhat with Benadryl. She is seen for a follow-up visit. She has been feeling good generally. She has pretty good energy/activity tolerance. She is doing housework. Her appetite is still good. She has no fever or night sweats. She says she mostly feels cold. She has had some fullness in her right ear. She has not had sore mouth or throat. She does not complain of cough, and she has not been having shortness of breath or chest pain. She had no nausea/vomiting. She had diarrhea a couple of times. She has no complaints. She has no significant joint or bone pain. She reports having occasional headache. She has not been dizzy or lightheaded. She had some cold sensitivity which lasted for about 10 days. She also felt a little weak and shaky. Medications: Flonase 1 [place](s) (of 50 mcg/act) Suspension Nasal daily, LORazepam (1 mg) Tablet Oral Take as Directed, Potassium Chloride Crystals Take as Directed, Prochlorperazine Maleate (10 mg) Tablet Oral Take as Directed Allergies: No Known Allergies. Vital Signs: Performed on Jul 10, 2021 09:46 Height - 65.00 in Weight - 133.4 lbs (HIGH) BSA - 1.67 sq.m BMI - 22.20 Temperature - 96.0 F (LOW) Pulse - 76 /min Respiration - 16 /min BP - 156/96 mm(hg) (HIGH) O2 Sat - 98 % Pain - 0 Fatigue - 3 Physical Examination: Constitutional - She looks pretty good generally, Eyes - Sclerae nonicteric. Conjunctivae clear, ENMT - No lesions noted in the oral cavity, Hematologic/Lymphatic - No cervical, clavicular, or axillary adenopathy, Respiratory - Lungs are clear with good air movement bilaterally, Cardiovascular - Heart rhythm is regular. There is no murmur, gallop, or rub noted, Abdomen - Soft. Liver and spleen are not enlarged. There is no abdominal mass or ascites noted and there is no inguinal adenopathy, Extremities - No edema, Neurologic - No focal neurologic deficits noted. Lab/Imaging: Test performed on Jul 10, 2021 08:24 Sodium 137 mmol/L Potassium 3.3 mmol/L Chloride 103 mmol/L CO2 23 mmol/L Anion Gap 14.3 BUN 5 mg/dL Creatinine 0.6 mg/dL Cr Clearance (Est) 94.06 mL/min eGFR 101.6 mL/min Glucose 177 mg/dL Osmolality - Calculated 286 mOsm/kg Calcium 8.0 mg/dL Protein, Total 5.8 g/dL Albumin 3.9 g/dL Globulin 1.9 g/dL Bilirubin, Total 0.3 mg/dL ALT (SGPT) 19 U/L AST (SGOT) 17 U/L Alkaline Phosphatase 81 IU/L WBC 2.7 10 3/uL RBC 3.69 10 6/uL HGB 10.9 g/dL HCT 31.8 % MCV 86.2 fl MCH 29.5 pg MCHC 34.3 g/dL RDW 13.1 % Platelet Count 112 10 3/cmm MPV 10.8 fL Neutrophils 1.55 10 3/uL Lymphocytes 0.8 10 3/uL Monocytes 0.2 10 3/uL Eosinophils 0.1 10 3/uL Basophils 0.0 10 3/uL Neutrophil % 57.7 % Lymphocyte % 31.2 % Monocyte % 7.8 % Eosinophil % 2.6 % Basophils % 0.7 % NRBC % 0 % Problem List: 1. Adenocarcinoma involving the head of the pancreas. By clinical evaluation, her disease appears to be stage IB (T2, N0, M0), but she was deemed an operable due to associated compression of the mesenteric vein. 2. History of hypertension, currently not requiring medication. 3. GERD. Problems Addressed with this Encounter and Plan: Patient with adenocarcinoma involving the head of the pancreas, initially presenting in February with obstructive jaundice. At that time she underwent ERCP with placement of biliary stent. Her endoscopic ultrasound on 04/25/2021 showed a pancreatic head mass measuring 2.8 x 2.3 cm. FNA biopsy was positive for adenocarcinoma. By ultrasound there was associated compression of the mesenteric vein, but there was no adenopathy noted, and there has been no evidence of metastatic disease by CT scan. As such, by clinical evaluation her disease appears to be stage IB (T2, N0, M0), but she was deemed an operable due to the associated mesenteric vein compression. She had good performance status, and she was recommended to undergo neoadjuvant chemotherapy with the FOLFIRINOX regimen. She began cycle 1 on 06/26/2021. Baseline CA 19-9 level was 313.0 U/mL. She experienced some jitteriness and apprehension during the initial treatment. The symptoms did show some improvement with Benadryl, but is still uncertain to what extent that may have been due to anxiety or to a mild hypersensitivity reaction. Side effects of the treatment have been mild and otherwise limited to diarrhea, neuropathy, and myelosuppression. Overall, she tolerated the treatment extremely well, but at this point she still has moderately severe neutropenia. As such, her cycle 2 will be delayed for at least 1 week. It will be administered with Neulasta prophylactically, subject to verification of insurance coverage, and the 5-FU bolus will be omitted. I will see her for a follow-up visit again prior to cycle 3. She is scheduled to have follow-up with Dr. Lopez on 09/06/2021. Signed By: Bob Rosenthal M.D. <<Signature on File>>
[2021-07-17 13:24] LABS: Basophils % 0.8 %; Eosinophils # 0.1 10^3/uL (0.0-0.8); Hemoglobin 11.1 g/dL (11.5-15.3); Lymphocytes # 1.1 10^3/uL (0.8-4.8); Lymphocytes % 31.7 %; Mean Corpuscular HGB Conc 33.6 g/dL (30.0-36.0); Mean Corpuscular Hemoglobin 29.7 pg (28.0-34.0); Mean Corpuscular Volume 88.2 fl (81-99); Mean Platelet Volume 10.1 fL (7.4-10.4); Monocytes # 0.4 10^3/uL (0.2-0.9); Monocytes % 10.8 %; Neutrophils # 1.92 10^3/uL (1.8-7.7); Neutrophils % 54.4 %; Nucleated Red Blood Cells % 0 %; Platelet Count 155 10^3/cmm (130-400); Red Blood Count 3.74 10^6/uL (4.1-5.3); Red Cell Distribution Width 13.6 % (12.1-15.1); White Blood Count 3.5 10^3/uL (4.0-10.0)
[2021-07-17 13:54] LABS: Alanine Aminotransferase 22 U/L (0-33); Albumin Level 3.9 g/dL (3.5-5.2); Alkaline Phosphatase 77 IU/L (35-105); Anion Gap 14.9 (5-19); Aspartate Amino Transferase 21 U/L (0-32); Blood Urea Nitrogen 7 mg/dL (8-23); Calcium 8.9 mg/dL (8.5-10.5); Carbon Dioxide 23 mmol/L (22-29); Chloride 104 mmol/L (98-107); Globulin 2.2 g/dL (1.3-4.6); Glomerular Filtration Rate 125.4 mL/min (90-130); Glucose 216 mg/dL (65-115); Osmolality Calculated 291 mOsm/kg (285-295); Potassium 3.9 mmol/L (3.5-5.1); Sodium 138 mmol/L (136-145); Total Bilirubin 0.2 mg/dL (0.15-1.2); Total Protein 6.1 g/dL (6.6-8.7)
== END 2021-07-17 23:59 | disposition home or self-care (01) ==
LOC: ONCMED 06:44
PROVIDERS: Nurse Practitioner Family; PCP Physician Assistant; Visit Provider Internal Medicine Medical Oncology
DX: Z51.11 Encounter for antineoplastic chemotherapy (principal); C25.0 Malignant neoplasm of head of pancreas; I87.1 Compression of vein; K21.9 Gastro-esophageal reflux disease without esophagitis; Z86.79 Personal history of other diseases of the circulatory system
CPT/HCPCS: 36591; 80053; 82378; 85025; 86301; 96367; 96368; 96375; 96411; 96413; 96415; 96416; 96417; 96523; 99215; J0461; J1100; J1453; J2469; J7050; J9190; J9206

== ENCOUNTER 2021-08-04 06:45 | Outpatient (RCR) | payer BC, MEDICAID, SELFPAY ==
[2021-07-18] MEDS: dextrose 5% 250 ML 75 ML IV (09:18)
[2021-07-18] MEDS: palonosetron 0.25 mg/5 mL SDV IV (09:18)
[2021-07-18] MEDS: dexamethasone 10 mg/mL INJ IV (09:20)
[2021-07-18] MEDS: fosaprepitant 150 MG in sodium chloride 0.9% 150 ML 300 MG IV (09:40)
[2021-07-18] MEDS: diphenhydrAMINE 50 mg/mL SDV 1mL 25 MG IV (14:42)
[2021-07-18] MEDS: LORazepam 2 mg/mL INJ 1 mL 0.5 MG IV (14:44)
[2021-07-18] MEDS: sodium chloride 0.9% 500 ML 999 ML IV (15:00)
[2021-07-25 14:04] LABS: Basophils % 0.7 %; Eosinophils # 0.1 10^3/uL (0.0-0.8); Eosinophils % 2.1 %; Hematocrit 33.8 % (37.0-47.0); Hemoglobin 11.6 g/dL (11.5-15.3); Lymphocytes # 1.4 10^3/uL (0.8-4.8); Lymphocytes % 30.9 %; Mean Corpuscular HGB Conc 34.3 g/dL (30.0-36.0); Mean Corpuscular Hemoglobin 29.7 pg (28.0-34.0); Mean Corpuscular Volume 86.7 fl (81-99); Mean Platelet Volume 10.7 fL (7.4-10.4); Monocytes # 0.4 10^3/uL (0.2-0.9); Monocytes % 8.9 %; Neutrophils % 57.2 %; Nucleated Red Blood Cells % 0 %; Platelet Count 149 10^3/cmm (130-400); Red Cell Distribution Width 13.4 % (12.1-15.1); White Blood Count 4.4 10^3/uL (4.0-10.0)
[2021-07-25] MEDS: sodium chloride 0.9% 500 ML 999 ML IV (14:08)
[2021-07-25 14:45] LABS: Alanine Aminotransferase 20 U/L (0-33); Albumin Level 4.4 g/dL (3.5-5.2); Alkaline Phosphatase 71 IU/L (35-105); Anion Gap 16.8 (5-19); Aspartate Amino Transferase 17 U/L (0-32); Blood Urea Nitrogen 9 mg/dL (8-23); Calcium 9.3 mg/dL (8.5-10.5); Carbon Dioxide 19 mmol/L (22-29); Chloride 101 mmol/L (98-107); Globulin 2.1 g/dL (1.3-4.6); Glomerular Filtration Rate 125.4 mL/min (90-130); Glucose 171 mg/dL (65-115); Osmolality Calculated 279 mOsm/kg (285-295); Potassium 3.8 mmol/L (3.5-5.1); Sodium 133 mmol/L (136-145); Total Bilirubin 0.3 mg/dL (0.15-1.2); Total Protein 6.5 g/dL (6.6-8.7)
[2021-08-01 08:34] LABS: Basophils % 1.2 %; Eosinophils # 0.1 10^3/uL (0.0-0.8); Eosinophils % 1.5 %; Hematocrit 33.7 % (37.0-47.0); Hemoglobin 11.4 g/dL (11.5-15.3); Lymphocytes # 1.1 10^3/uL (0.8-4.8); Lymphocytes % 31.5 %; Mean Corpuscular HGB Conc 33.8 g/dL (30.0-36.0); Mean Corpuscular Hemoglobin 30.1 pg (28.0-34.0); Mean Corpuscular Volume 88.9 fl (81-99); Mean Platelet Volume 10.4 fL (7.4-10.4); Monocytes # 0.3 10^3/uL (0.2-0.9); Neutrophils # 1.94 10^3/uL (1.8-7.7); Neutrophils % 56.5 %; Nucleated Red Blood Cells % 0 %; Platelet Count 126 10^3/cmm (130-400); Red Blood Count 3.79 10^6/uL (4.1-5.3); Red Cell Distribution Width 14.1 % (12.1-15.1); White Blood Count 3.4 10^3/uL (4.0-10.0)
[2021-08-01 09:00] LABS: Alanine Aminotransferase 48 U/L (0-33); Albumin Level 4.2 g/dL (3.5-5.2); Alkaline Phosphatase 83 IU/L (35-105); Anion Gap 15.5 (5-19); Aspartate Amino Transferase 45 U/L (0-32); Blood Urea Nitrogen 7 mg/dL (8-23); Calcium 8.9 mg/dL (8.5-10.5); Cancer Antigen 19 9 283.8 U/mL (0-35); Carbon Dioxide 23 mmol/L (22-29); Chloride 103 mmol/L (98-107); Globulin 2.4 g/dL (1.3-4.6); Glomerular Filtration Rate 101.6 mL/min (90-130); Glucose 272 mg/dL (65-115); Osmolality Calculated 294 mOsm/kg (285-295); Potassium 3.5 mmol/L (3.5-5.1); Sodium 138 mmol/L (136-145); Total Bilirubin 0.4 mg/dL (0.15-1.2); Total Protein 6.6 g/dL (6.6-8.7)
[2021-08-01] MEDS: dextrose 5% 250 ML 75 ML IV (10:20)
[2021-08-01] MEDS: palonosetron 0.25 mg/5 mL SDV IV (10:20)
[2021-08-01] MEDS: sodium chloride 0.9% 250 ML 600 ML IV (10:37)
[2021-08-02] MEDS: palonosetron 0.25 mg/5 mL SDV IV (09:02)
[2021-08-02] MEDS: sodium chloride 0.9% 250 ML 75 ML IV (09:02)
[2021-08-02] MEDS: fosaprepitant 150 MG in sodium chloride 0.9% 150 ML 300 MG IV (09:04)
--- NOTE | 2021-08-03 09:21 | ONC FU_ITS ---
[facility] Progress Note Patient: Angelique Aggarwal Unit #: [id number]: 1960 Dicatated By: [facility] N.P.Date of Visit:Aug 01, 2021 Onc MED Follow-up/Prog Note Chief Complaint: Pancreatic cancer. 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 On 03/09/2021 she presented to the emergency room with recent onset of jaundice. Her total bilirubin at that time was 6.5 mg/dL. Her liver enzymes were significantly elevated with SGOT 458/32 U/L, SGPT 808/33 U/L, and alkaline phosphatase 230/105 IU/L. Her CT abdomen/pelvis showed intra and extrahepatic biliary ectasia with common bile duct measuring upwards of 12 mm. There is diffuse pancreatic duct ectasia measuring upwards of 8 mm with no visible pancreatic mass. Also noted was enlarged hydropic gallbladder but with no visible cholelithiasis. On 03/15/2021 she underwent ERCP with placement of biliary stent. On 04/25/2021 she underwent endoscopic ultrasound which showed significant dilatation of the main pancreatic duct in the body and tail of the pancreas measuring up to 7 mm in diameter. A hypoechogenic mass measuring 2.8 x 2.3 cm was noted in the head of the pancreas. There was associated compression of the mesenteric vein. FNA biopsy of the mass showed adenocarcinoma. Her baseline CA 19-9 level was 170 U/mL. She had surgical consultation with on 05/22/2021. Given the associated SMV involvement, she was recommended to have neoadjuvant chemotherapy. On 05/24/2021 she underwent repeat ERCP with replacement of the biliary stent. At that time she also underwent EGD with dilatation of the pylorus and duodenum. I had seen her initially on 06/02/2021. She had good performance status, and she was recommended to begin neoadjuvant chemotherapy with the FOLFIRINOX regimen. She was agreeable, though she opted to delay starting her treatment. Her other medical illnesses have been limited to hypertension and GERD. Her only prior surgery was a hysterectomy and bladder suspension in 1999. She has a history of smoking 1 pack of cigarettes daily for 25 years, but she quit smoking in 2003. INTERIM HISTORY: She began cycle 1 of neoadjuvant FOLFIRINOX on 06/26/2021. Her baseline CA 19-9 level was 313.0 U/mL. She experienced some side effects during the treatment, including jitteriness and feeling of apprehension. She did not have hypotension or difficulty breathing, and the symptoms improved somewhat with Benadryl. She presents today for follow-up. She states she has been feeling well. She has occasional days of fatigue but for the most part she is able to perform activities. During her last treatment she had an episode of anxiety and flushing but she states that is all resolved now. She states her appetite is fairly good. She denies fever, chills, night sweats. She denies shortness of breath cough or chest pain. She has had a couple of episodes of diarrhea but that has resolved. No joint pain or muscle weakness. Review Of Symptoms:See above Past Medical History: Gastroesophageal reflux disease Hypertension Past Surgical History: EGD and ERCP with replacement of biliary stent in 2020 Endoscopic ultrasound with FNA biopsy of pancreatic head mass in 2020 ERCP with placement of biliary stent in 2020 Hysterectomy and bladder suspension in 1999 Allergies: No Known Allergies. Medications: Flonase 1 [place](s) (of 50 mcg/act) Suspension Nasal daily LORazepam (1 mg) Tablet Oral Take as Directed Potassium Chloride Crystals Take as Directed Prochlorperazine Maleate (10 mg) Tablet Oral Take as Directed Family History: Father with an aortic aneurysm at age 67. Mother with colon cancer at age 76. She also had diabetes. A brother and a sister also are , cause unknown to the patient. Social History: Ms. Aggarwal is . Ms. Aggarwal quit smoking 18 years ago but had smoked 1.0 pack/day for 25 years. She has no history of drinking. She has a history of smoking 1 pack of cigarettes daily for 25 years. She quit smoking in 2003. She does not drink alcohol. Physical Examination: Performed on Aug 01, 2021 09:42: Height - 65.00 in, Weight - 131.6 lbs (LOW), BSA - 1.66 sq.m, BMI - 21.90, Temperature - 97.3 F (LOW), Pulse - 83 /min, Respiration - 16 /min, BP - 162/93 mm(hg) (HIGH), O2 Sat - 100 %, Pain - 0, and Fatigue - 4. Performance Status: 1 - No physically strenuous activity, but ambulatory and able to carry out light or sedentary work (e.g. office work, light house work). (ECOG) Constitutional Alert, cooperative, oriented. Mood and affect appropriate. Appears close to chronological age. Well nourished. Well developed. Head Normocephalic; no scars. Respiratory Lungs are clear to auscultation without rhonchi or wheezing. Cardiovascular Regular rate and rhythm of heart without murmurs, gallops or rubs. Abdomen Non-tender, non-distended, no masses, ascites or hepatosplenomegaly. Good bowel sounds. No guarding or rebound tenderness. Extremities No visible deformities, no cyanosis, clubbing or edema. Pulses 3+ and equal bilaterally. Psychiatric Alert and oriented times three. Coherent speech. Verbalizes understanding of our discussions today. Laboratory: Test performed on Aug 01, 2021 08:24 Sodium 138 mmol/L Potassium 3.5 mmol/L Chloride 103 mmol/L CO2 23 mmol/L Anion Gap 15.5 BUN 7 mg/dL Creatinine 0.6 mg/dL Cr Clearance (Est) 94.0600 mL/min eGFR 101.6 mL/min Glucose 272 mg/dL Osmolality - Calculated 294 mOsm/kg Calcium 8.9 mg/dL Protein, Total 6.6 g/dL Albumin 4.2 g/dL Globulin 2.4 g/dL Bilirubin, Total 0.4 mg/dL ALT (SGPT) 48 U/L AST (SGOT) 45 U/L Alkaline Phosphatase 83 IU/L WBC 3.4 10 3/uL RBC 3.79 10 6/uL HGB 11.4 g/dL HCT 33.7 % MCV 88.9 fl MCH 30.1 pg MCHC 33.8 g/dL RDW 14.1 % Platelet Count 126 10 3/cmm MPV 10.4 fL Neutrophils 1.94 10 3/uL Lymphocytes 1.1 10 3/uL Monocytes 0.3 10 3/uL Eosinophils 0.1 10 3/uL Basophils 0.0 10 3/uL Neutrophil % 56.5 % Lymphocyte % 31.5 % Monocyte % 9.0 % Eosinophil % 1.5 % Basophils % 1.2 % NRBC % 0 % CA 19-9 283.8 U/mL Test performed on Jun 26, 2021 08:30 CEA 3.8 ng/mL Impression: 1. Adenocarcinoma involving the head of the pancreas. By clinical evaluation, her disease appears to be stage IB (T2, N0, M0), but she was deemed an operable due to associated compression of the mesenteric vein. 2. History of hypertension, currently not requiring medication. 3. GERD. Plan: Patient with adenocarcinoma involving the head of the pancreas, initially presenting in February with obstructive jaundice. At that time she underwent ERCP with placement of biliary stent. Her endoscopic ultrasound on 04/25/2021 showed a pancreatic head mass measuring 2.8 x 2.3 cm. FNA biopsy was positive for adenocarcinoma. By ultrasound there was associated compression of the mesenteric vein, but there was no adenopathy noted, and there has been no evidence of metastatic disease by CT scan. As such, by clinical evaluation her disease appears to be stage IB (T2, N0, M0), but she was deemed an operable due to the associated mesenteric vein compression. She had good performance status, and she was recommended to undergo neoadjuvant chemotherapy with the FOLFIRINOX regimen. She began cycle 1 on 06/26/2021. Baseline CA 19-9 level was 313.0 U/mL. She experienced some jitteriness and apprehension during the initial treatment. The symptoms did show some improvement with Benadryl, but is still uncertain to what extent that may have been due to anxiety or to a mild hypersensitivity reaction. Side effects of the treatment have been mild and otherwise limited to diarrhea, neuropathy, and myelosuppression. With cycle 2 patient had the same symptoms of apprehension and jitteriness. Her CA 19???9 was 283.8 which is down from 313 on 06/26/2021. We will stop oxaliplatin and see if patient tolerates treatment better. She will follow up with Dr. Rosenthal in 2 weeks with CBC and CMP. Signed By: [place] N.P. <<Signature on File>>
== END 2021-08-14 23:59 | disposition home or self-care (01) ==
LOC: ONCMED 06:45
PROVIDERS: PCP Physician Assistant; Visit Provider Internal Medicine Medical Oncology
DX: Z51.11 Encounter for antineoplastic chemotherapy (principal); C25.0 Malignant neoplasm of head of pancreas; I87.1 Compression of vein; K21.9 Gastro-esophageal reflux disease without esophagitis; Z86.79 Personal history of other diseases of the circulatory system; Z79.899 Other long term (current) drug therapy
CPT/HCPCS: 80053; 85025; 86301; 96360; 96365; 96367; 96368; 96375; 96413; 96415; 96416; 96417; 96523; 99215; J0461; J0640; J1100; J1200; J1453; J2060; J2469; J7040; J7050; J9190; J9206; J9263

== ENCOUNTER 2021-09-14 06:42 | Outpatient (RCR) | payer BC, MEDICAID, SELFPAY ==
[2021-08-16 08:42] LABS: Eosinophils # 0.1 10^3/uL (0.0-0.8); Hematocrit 34.4 % (37.0-47.0); Hemoglobin 11.4 g/dL (11.5-15.3); Lymphocytes # 1.1 10^3/uL (0.8-4.8); Lymphocytes % 35.6 %; Mean Corpuscular HGB Conc 33.1 g/dL (30.0-36.0); Mean Corpuscular Hemoglobin 30.4 pg (28.0-34.0); Mean Corpuscular Volume 91.7 fl (81-99); Mean Platelet Volume 10.3 fL (7.4-10.4); Monocytes # 0.2 10^3/uL (0.2-0.9); Monocytes % 6.9 %; Neutrophils # 1.65 10^3/uL (1.8-7.7); Neutrophils % 54.5 %; Nucleated Red Blood Cells % 0 %; Platelet Count 144 10^3/cmm (130-400); Red Blood Count 3.75 10^6/uL (4.1-5.3); Red Cell Distribution Width 14.4 % (12.1-15.1)
[2021-08-16 09:20] LABS: Alanine Aminotransferase 129 U/L (0-33); Albumin Level 4.3 g/dL (3.5-5.2); Alkaline Phosphatase 120 IU/L (35-105); Anion Gap 17.5 (5-19); Aspartate Amino Transferase 52 U/L (0-32); Blood Urea Nitrogen 9 mg/dL (8-23); Calcium 8.2 mg/dL (8.5-10.5); Carbon Dioxide 23 mmol/L (22-29); Chloride 102 mmol/L (98-107); Glomerular Filtration Rate 101.6 mL/min (90-130); Glucose 270 mg/dL (65-115); Osmolality Calculated 296 mOsm/kg (285-295); Potassium 3.5 mmol/L (3.5-5.1); Sodium 139 mmol/L (136-145); Total Bilirubin 0.3 mg/dL (0.15-1.2); Total Protein 6.3 g/dL (6.6-8.7)
--- NOTE | 2021-08-18 18:35 | ONC FU_ITS ---
Dr. Rosenthal Patient Follow-Up Note Patient: Angelique Aggarwal Unit #: [id number]: 1960 Dicatated By: Bob Rosenthal M.D.Date of Visit:Aug 16, 2021 Onc Med Follow-up/Prog Note Chief Complaint: Pancreatic cancer. 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 On 03/09/2021 she presented to the emergency room with recent onset of jaundice. Her total bilirubin at that time was 6.5 mg/dL. Her liver enzymes were significantly elevated with SGOT 458/32 U/L, SGPT 808/33 U/L, and alkaline phosphatase 230/105 IU/L. Her CT abdomen/pelvis showed intra and extrahepatic biliary ectasia with common bile duct measuring upwards of 12 mm. There is diffuse pancreatic duct ectasia measuring upwards of 8 mm with no visible pancreatic mass. Also noted was enlarged hydropic gallbladder but with no visible cholelithiasis. On 03/15/2021 she underwent ERCP with placement of biliary stent. On 04/25/2021 she underwent endoscopic ultrasound which showed significant dilatation of the main pancreatic duct in the body and tail of the pancreas measuring up to 7 mm in diameter. A hypoechogenic mass measuring 2.8 x 2.3 cm was noted in the head of the pancreas. There was associated compression of the mesenteric vein. FNA biopsy of the mass showed adenocarcinoma. Her baseline CA 19-9 level was 170 U/mL. She had surgical consultation with on 05/22/2021. Given the associated SMV involvement, she was recommended to have neoadjuvant chemotherapy. On 05/24/2021 she underwent repeat ERCP with replacement of the biliary stent. At that time she also underwent EGD with dilatation of the pylorus and duodenum. I had seen her initially on 06/02/2021. She had good performance status, and she was recommended to begin neoadjuvant chemotherapy with the FOLFIRINOX regimen. She was agreeable, though she opted to delay starting her treatment. Her other medical illnesses have been limited to hypertension and GERD. Her only prior surgery was a hysterectomy and bladder suspension in 1999. She has a history of smoking 1 pack of cigarettes daily for 25 years, but she quit smoking in 2003. INTERIM HISTORY: She began cycle 1 of neoadjuvant FOLFIRINOX on 06/26/2021. Her CA 19-9 level at that point had increased to 313.0 U/mL. She experienced some side effects during the treatment, including jitteriness and feeling of apprehension. She did not have hypotension or difficulty breathing, and the symptoms improved somewhat with Benadryl. She experienced no further treatment related toxicity, and she then proceeded with cycle 2 on 07/18/2021. It was administered with an oral steroid premedication regimen. Despite that, she again experienced significant jitteriness and during subsequent follow-up she also developed neuropathy symptoms. At her follow-up visit on 08/02/2021 there was a slight decrease in the CA 19-9 level to 283.8 U/mL. She continue with cycle 3 of FOLFIRINOX, but at that point I did opt to admit the oxaliplatin. She is seen for a follow-up visit. She has really felt pretty good since her last treatment, though she still experienced quite a bit of jitteriness with it, and it appears likely now that it was more likely steroid related. She has had pretty good energy. Her ECOG score is 1. She has good appetite. She has not had fever. She sometimes has sweating at night. She has noticed occasional light flashes in her visual arenas and she also has been getting floaties in both eyes. She has not had sore mouth or throat. She does not complain of cough, and she has not been having shortness of breath or chest pain. She has no GI complaints. Bladder function remains adequate, though she has been voiding a little more frequently. She has had some muscle cramps, she is not having any significant joint or bone pain. She has been waking up with headache on a daily basis this past week. She has some ongoing issues with balance. She is not having numbness/paresthesia or other neuropathy symptoms. Medications: Flonase 1 [place](s) (of 50 mcg/act) Suspension Nasal daily, LORazepam (1 mg) Tablet Oral Take as Directed, Potassium Chloride Crystals Take as Directed, Prochlorperazine Maleate (10 mg) Tablet Oral Take as Directed Allergies: No Known Allergies. Vital Signs: Performed on Aug 16, 2021 09:05 Height - 65.00 in Weight - 132.2 lbs (HIGH) BSA - 1.66 sq.m BMI - 22.00 Temperature - 98.4 F Pulse - 82 /min Respiration - 16 /min BP - 182/94 mm(hg) (HIGH) O2 Sat - 99 % Pain - 9 Fatigue - 0 Physical Examination: Constitutional - She looks pretty good generally, Eyes - Sclerae nonicteric. Conjunctivae clear, ENMT - No lesions noted in the oral cavity, Hematologic/Lymphatic - No cervical, clavicular, or axillary adenopathy, Respiratory - Lungs are clear with good air movement bilaterally, Cardiovascular - Heart rhythm is regular. There is no murmur, gallop, or rub noted, Abdomen - Soft. Liver and spleen are not enlarged. There is no abdominal mass or ascites noted and there is no inguinal adenopathy, Extremities - No edema, Neurologic - No focal neurologic deficits noted. Lab/Imaging: Test performed on Aug 16, 2021 08:18 Sodium 139 mmol/L Potassium 3.5 mmol/L Chloride 102 mmol/L CO2 23 mmol/L Anion Gap 17.5 BUN 9 mg/dL Creatinine 0.6 mg/dL Cr Clearance (Est) 94.0600 mL/min eGFR 101.6 mL/min Glucose 270 mg/dL Osmolality - Calculated 296 mOsm/kg Calcium 8.2 mg/dL Protein, Total 6.3 g/dL Albumin 4.3 g/dL Globulin 2.0 g/dL Bilirubin, Total 0.3 mg/dL ALT (SGPT) 129 U/L AST (SGOT) 52 U/L Alkaline Phosphatase 120 IU/L WBC 3.0 10 3/uL RBC 3.75 10 6/uL HGB 11.4 g/dL HCT 34.4 % MCV 91.7 fl MCH 30.4 pg MCHC 33.1 g/dL RDW 14.4 % Platelet Count 144 10 3/cmm MPV 10.3 fL Neutrophils 1.65 10 3/uL Lymphocytes 1.1 10 3/uL Monocytes 0.2 10 3/uL Eosinophils 0.1 10 3/uL Basophils 0.0 10 3/uL Neutrophil % 54.5 % Lymphocyte % 35.6 % Monocyte % 6.9 % Eosinophil % 2.0 % Basophils % 1.0 % NRBC % 0 % Problem List: 1. Adenocarcinoma involving the head of the pancreas. By clinical evaluation, her disease appears to be stage IB (T2, N0, M0), but she was deemed an operable due to associated compression of the mesenteric vein. 2. History of hypertension, currently not requiring medication. 3. GERD. Problems Addressed with this Encounter and Plan: Patient with adenocarcinoma involving the head of the pancreas, initially presenting in February with obstructive jaundice. At that time she underwent ERCP with placement of biliary stent. Her endoscopic ultrasound on 04/25/2021 showed a pancreatic head mass measuring 2.8 x 2.3 cm. FNA biopsy was positive for adenocarcinoma. By ultrasound there was associated compression of the mesenteric vein, but there was no adenopathy noted, and there has been no evidence of metastatic disease by CT scan. As such, by clinical evaluation her disease appears to be stage IB (T2, N0, M0), but she was deemed an operable due to the associated mesenteric vein compression. She was recommended to proceed with neoadjuvant chemotherapy. As she had good performance status, I had recommended treatment with the FOLFIRINOX regimen. She began cycle 1 on 06/26/2021. At that point the CA 19 9 level had increased to 313.0 U/mL. She experienced some jitteriness and apprehension during the initial treatment. The symptoms did show some improvement with Benadryl. Side effects were otherwise mild and limited to diarrhea, neuropathy, and myelosuppression. Overall, she tolerated the treatment extremely well. She did require a delay with cycle 2 due to neutropenia. With that cycle the 5-FU bolus was omitted, and he was given with an oral steroid premedication regimen. She again experienced significant jitteriness during the treatment. With cycle 3, on 08/02/2021, the oxaliplatin was omitted. At that point there was a slight decrease in the CA 19-9 level to 283.8 U/mL. Despite the omission of oxaliplatin, she continues to have significant jitteriness with her cycle 3 treatment, and it now seems more likely that it is a steroid related symptom. She has otherwise been tolerating treatment well, though she continues to have moderately severe neutropenia and mild thrombocytopenia. As such, she will have another 1-week delay. With cycle 4, I will restart the oxaliplatin, but she will require dose reductions due to the neutropenia. Signed By: Bob Rosenthal M.D. <<Signature on File>>
[2021-08-23 10:19] LABS: Eosinophils # 0.1 10^3/uL (0.0-0.8); Eosinophils % 2.6 %; Hematocrit 33.8 % (37.0-47.0); Hemoglobin 11.3 g/dL (11.5-15.3); Lymphocytes # 1.1 10^3/uL (0.8-4.8); Lymphocytes % 36.2 %; Mean Corpuscular HGB Conc 33.4 g/dL (30.0-36.0); Mean Corpuscular Hemoglobin 30.5 pg (28.0-34.0); Mean Corpuscular Volume 91.1 fl (81-99); Mean Platelet Volume 10.2 fL (7.4-10.4); Monocytes # 0.3 10^3/uL (0.2-0.9); Monocytes % 9.8 %; Neutrophils # 1.55 10^3/uL (1.8-7.7); Neutrophils % 50.4 %; Nucleated Red Blood Cells % 0 %; Platelet Count 159 10^3/cmm (130-400); Red Blood Count 3.71 10^6/uL (4.1-5.3); Red Cell Distribution Width 14.2 % (12.1-15.1); White Blood Count 3.1 10^3/uL (4.0-10.0)
[2021-08-23 10:40] LABS: Alanine Aminotransferase 44 U/L (0-33); Albumin Level 4.5 g/dL (3.5-5.2); Alkaline Phosphatase 93 IU/L (35-105); Anion Gap 13.4 (5-19); Aspartate Amino Transferase 26 U/L (0-32); Blood Urea Nitrogen 9 mg/dL (8-23); Calcium 9.2 mg/dL (8.5-10.5); Carbon Dioxide 23 mmol/L (22-29); Chloride 104 mmol/L (98-107); Globulin 2.4 g/dL (1.3-4.6); Glomerular Filtration Rate 125.4 mL/min (90-130); Glucose 179 mg/dL (65-115); Osmolality Calculated 287 mOsm/kg (285-295); Potassium 3.4 mmol/L (3.5-5.1); Sodium 137 mmol/L (136-145); Total Bilirubin 0.3 mg/dL (0.15-1.2); Total Protein 6.9 g/dL (6.6-8.7)
--- NOTE | 2021-08-23 15:59 | ONC FU_ITS ---
[facility] Progress Note Patient: Angelique Aggarwal Unit #: [id number]: 1960 Dicatated By: [facility] N.P.Date of Visit:Aug 23, 2021 Onc MED Follow-up/Prog Note Chief Complaint: Pancreatic cancer. 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 On 03/09/2021 she presented to the emergency room with recent onset of jaundice. Her total bilirubin at that time was 6.5 mg/dL. Her liver enzymes were significantly elevated with SGOT 458/32 U/L, SGPT 808/33 U/L, and alkaline phosphatase 230/105 IU/L. Her CT abdomen/pelvis showed intra and extrahepatic biliary ectasia with common bile duct measuring upwards of 12 mm. There is diffuse pancreatic duct ectasia measuring upwards of 8 mm with no visible pancreatic mass. Also noted was enlarged hydropic gallbladder but with no visible cholelithiasis. On 03/15/2021 she underwent ERCP with placement of biliary stent. On 04/25/2021 she underwent endoscopic ultrasound which showed significant dilatation of the main pancreatic duct in the body and tail of the pancreas measuring up to 7 mm in diameter. A hypoechogenic mass measuring 2.8 x 2.3 cm was noted in the head of the pancreas. There was associated compression of the mesenteric vein. FNA biopsy of the mass showed adenocarcinoma. Her baseline CA 19-9 level was 170 U/mL. She had surgical consultation with on 05/22/2021. Given the associated SMV involvement, she was recommended to have neoadjuvant chemotherapy. On 05/24/2021 she underwent repeat ERCP with replacement of the biliary stent. At that time she also underwent EGD with dilatation of the pylorus and duodenum. I had seen her initially on 06/02/2021. She had good performance status, and she was recommended to begin neoadjuvant chemotherapy with the FOLFIRINOX regimen. She was agreeable, though she opted to delay starting her treatment. Her other medical illnesses have been limited to hypertension and GERD. Her only prior surgery was a hysterectomy and bladder suspension in 1999. She has a history of smoking 1 pack of cigarettes daily for 25 years, but she quit smoking in 2003. INTERIM HISTORY: She began cycle 1 of neoadjuvant FOLFIRINOX on 06/26/2021. Her CA 19-9 level at that point had increased to 313.0 U/mL. She experienced some side effects during the treatment, including jitteriness and feeling of apprehension. She did not have hypotension or difficulty breathing, and the symptoms improved somewhat with Benadryl. She experienced no further treatment related toxicity, and she then proceeded with cycle 2 on 07/18/2021. It was administered with an oral steroid premedication regimen. Despite that, she again experienced significant jitteriness and during subsequent follow-up she also developed neuropathy symptoms. At her follow-up visit on 08/02/2021 there was a slight decrease in the CA 19-9 level to 283.8 U/mL. She continue with cycle 3 of FOLFIRINOX, but at that point I did opt to admit the oxaliplatin. She presents today for follow-up visit. She states she is feeling well. She is having some mild fatigue. Her ECOG is 1. Her appetite has been fair. No fever, chills, night sweats. No shortness of breath or wheezing. No cough or chest pain. She denies nausea or vomiting, she also denies diarrhea or constipation. No urinary problems. No joint or bone pain. No headache or dizziness. Review Of Symptoms: See above. Past Medical History: Gastroesophageal reflux disease Hypertension Past Surgical History: EGD and ERCP with replacement of biliary stent in 2020 Endoscopic ultrasound with FNA biopsy of pancreatic head mass in 2020 ERCP with placement of biliary stent in 2020 Hysterectomy and bladder suspension in 1999 Allergies: No Known Allergies. Medications: Flonase 1 [place](s) (of 50 mcg/act) Suspension Nasal daily Lisinopril 1 Tablet (of 20 mg) Oral daily LORazepam (1 mg) Tablet Oral Take as Directed Potassium Chloride Crystals Take as Directed Prochlorperazine Maleate (10 mg) Tablet Oral Take as Directed Family History: Father with an aortic aneurysm at age 67. Mother with colon cancer at age 76. She also had diabetes. A brother and a sister also are , cause unknown to the patient. Social History: Ms. Aggarwal is . Ms. Aggarwal quit smoking 18 years ago but had smoked 1.0 pack/day for 25 years. She has no history of drinking. She has a history of smoking 1 pack of cigarettes daily for 25 years. She quit smoking in 2003. She does not drink alcohol. Physical Examination: Performed on Aug 23, 2021 11:41: Height - 65.00 in, BP - 179/100 mm(hg) (HIGH), Performed on Aug 23, 2021 11:40: Height - 65.00 in, Weight - 129.8 lbs (LOW), BSA - 1.65 sq.m, BMI - 21.60, Temperature - 96.6 F (LOW), Pulse - 75 /min, Respiration - 16 /min, BP - 174/94 mm(hg) (HIGH), O2 Sat - 99 %, Pain - 0, and Fatigue - 4. Performance Status: 1 - No physically strenuous activity, but ambulatory and able to carry out light or sedentary work (e.g. office work, light house work). (ECOG) Constitutional Alert, cooperative, oriented. Mood and affect appropriate. Appears close to chronological age. Well nourished. Well developed. Head Normocephalic; no scars. Eyes Conjunctivae and sclerae are clear and without icterus. Pupils are reactive and equal. Respiratory Lungs are clear to auscultation without rhonchi or wheezing. Cardiovascular Regular rate and rhythm of heart without murmurs, gallops or rubs. Abdomen Non-tender, non-distended, no masses, ascites or hepatosplenomegaly. Good bowel sounds. No guarding or rebound tenderness. Extremities No visible deformities, no cyanosis, clubbing or edema. Pulses 3+ and equal bilaterally. Musculoskeletal No tenderness or swelling, normal range of motion without obvious weakness. Integumentary No rashes, scars, or lesions suggestive of malignancy. Psychiatric Alert and oriented times three. Coherent speech. Verbalizes understanding of our discussions today. Laboratory: Test performed on Aug 23, 2021 10:05 Sodium 137 mmol/L Potassium 3.4 mmol/L Chloride 104 mmol/L CO2 23 mmol/L Anion Gap 13.4 BUN 9 mg/dL Creatinine 0.5 mg/dL Cr Clearance (Est) 112.8700 mL/min eGFR 125.4 mL/min Glucose 179 mg/dL Osmolality - Calculated 287 mOsm/kg Calcium 9.2 mg/dL Protein, Total 6.9 g/dL Albumin 4.5 g/dL Globulin 2.4 g/dL Bilirubin, Total 0.3 mg/dL ALT (SGPT) 44 U/L AST (SGOT) 26 U/L Alkaline Phosphatase 93 IU/L WBC 3.1 10 3/uL RBC 3.71 10 6/uL HGB 11.3 g/dL HCT 33.8 % MCV 91.1 fl MCH 30.5 pg MCHC 33.4 g/dL RDW 14.2 % Platelet Count 159 10 3/cmm MPV 10.2 fL Neutrophils 1.55 10 3/uL Lymphocytes 1.1 10 3/uL Monocytes 0.3 10 3/uL Eosinophils 0.1 10 3/uL Basophils 0.0 10 3/uL Neutrophil % 50.4 % Lymphocyte % 36.2 % Monocyte % 9.8 % Eosinophil % 2.6 % Basophils % 1.0 % NRBC % 0 % Test performed on Aug 01, 2021 08:24 CA 19-9 283.8 U/mL Test performed on Jun 26, 2021 08:30 CEA 3.8 ng/mL Impression: 1. Adenocarcinoma involving the head of the pancreas. By clinical evaluation, her disease appears to be stage IB (T2, N0, M0), but she was deemed an operable due to associated compression of the mesenteric vein. 2. History of hypertension, currently not requiring medication. 3. GERD. Plan: Patient with adenocarcinoma involving the head of the pancreas, initially presenting in February with obstructive jaundice. At that time she underwent ERCP with placement of biliary stent. Her endoscopic ultrasound on 04/25/2021 showed a pancreatic head mass measuring 2.8 x 2.3 cm. FNA biopsy was positive for adenocarcinoma. By ultrasound there was associated compression of the mesenteric vein, but there was no adenopathy noted, and there has been no evidence of metastatic disease by CT scan. As such, by clinical evaluation her disease appears to be stage IB (T2, N0, M0), but she was deemed an operable due to the associated mesenteric vein compression. She was recommended to proceed with neoadjuvant chemotherapy. As she had good performance status, I had recommended treatment with the FOLFIRINOX regimen. She began cycle 1 on 06/26/2021. At that point the CA 19 9 level had increased to 313.0 U/mL. She experienced some jitteriness and apprehension during the initial treatment. The symptoms did show some improvement with Benadryl. Side effects were otherwise mild and limited to diarrhea, neuropathy, and myelosuppression. Overall, she tolerated the treatment extremely well. She did require a delay with cycle 2 due to neutropenia. With that cycle the 5-FU bolus was omitted, and he was given with an oral steroid premedication regimen. She again experienced significant jitteriness during the treatment. With cycle 3, on 08/02/2021, the oxaliplatin was omitted. At that point there was a slight decrease in the CA 19-9 level to 283.8 U/mL. Patient continues to have neutropenia. Her WBC was 3.1 and her neutrophils are low at 1.55. Her treatment was held last week due to neutropenia and it will be held again this week. We will treat with Neupogen x2 days. She will return to the clinic on 08/29/2021 for CBC and CMP and if labs have returned to baseline she will receive her FOLFIRINOX. Her oxaliplatin had been discontinued due to a possible reaction. It was determined that the reaction was probably caused from her steroid regimen so we will plan on adding at [place] back to the chemo regimen. The FOLFIRINOX regimen will also be administered at the reduced dose. Signed By: [facility] N.Shadia. <<Signature on File>>
[2021-08-29 08:21] LABS: Basophils # 0.1 10^3/uL (0.0-0.1); Basophils % 1.3 %; Eosinophils # 0.1 10^3/uL (0.0-0.8); Eosinophils % 2.4 %; Hemoglobin 11.8 g/dL (11.5-15.3); Lymphocytes # 1.3 10^3/uL (0.8-4.8); Lymphocytes % 28.7 %; Mean Corpuscular HGB Conc 32.8 g/dL (30.0-36.0); Mean Corpuscular Hemoglobin 30.1 pg (28.0-34.0); Mean Corpuscular Volume 91.8 fl (81-99); Mean Platelet Volume 10.6 fL (7.4-10.4); Monocytes # 0.5 10^3/uL (0.2-0.9); Monocytes % 9.9 %; Neutrophils # 2.52 10^3/uL (1.8-7.7); Neutrophils % 55.7 %; Nucleated Red Blood Cells % 0 %; Platelet Count 147 10^3/cmm (130-400); Red Blood Count 3.92 10^6/uL (4.1-5.3); White Blood Count 4.5 10^3/uL (4.0-10.0)
[2021-08-29 08:57] LABS: Alanine Aminotransferase 29 U/L (0-33); Albumin Level 4.2 g/dL (3.5-5.2); Alkaline Phosphatase 99 IU/L (35-105); Anion Gap 15.7 (5-19); Aspartate Amino Transferase 26 U/L (0-32); Blood Urea Nitrogen 9 mg/dL (8-23); Calcium 9.3 mg/dL (8.5-10.5); Cancer Antigen 19 9 170.3 U/mL (0-35); Carbon Dioxide 22 mmol/L (22-29); Chloride 104 mmol/L (98-107); Globulin 2.4 g/dL (1.3-4.6); Glomerular Filtration Rate 101.6 mL/min (90-130); Glucose 265 mg/dL (65-115); Osmolality Calculated 294 mOsm/kg (285-295); Potassium 3.7 mmol/L (3.5-5.1); Sodium 138 mmol/L (136-145); Total Bilirubin 0.3 mg/dL (0.15-1.2); Total Protein 6.6 g/dL (6.6-8.7)
[2021-08-29] MEDS: dextrose 5% 250 ML 75 ML IV (10:30)
[2021-08-29] MEDS: palonosetron 0.25 mg/5 mL SDV IV (10:50)
[2021-08-29] MEDS: fosaprepitant 150 MG in sodium chloride 0.9% 150 ML 300 MG IV (11:25)
--- NOTE | 2021-08-29 14:13 | ONC FU_ITS ---
[facility] Progress Note Patient: Angelique Aggarwal Unit #: [id number]: 1960 Dicatated By: [facility] N.P.Date of Visit:Aug 29, 2021 Onc MED Follow-up/Prog Note Chief Complaint: Pancreatic cancer. 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 On 03/09/2021 she presented to the emergency room with recent onset of jaundice. Her total bilirubin at that time was 6.5 mg/dL. Her liver enzymes were significantly elevated with SGOT 458/32 U/L, SGPT 808/33 U/L, and alkaline phosphatase 230/105 IU/L. Her CT abdomen/pelvis showed intra and extrahepatic biliary ectasia with common bile duct measuring upwards of 12 mm. There is diffuse pancreatic duct ectasia measuring upwards of 8 mm with no visible pancreatic mass. Also noted was enlarged hydropic gallbladder but with no visible cholelithiasis. On 03/15/2021 she underwent ERCP with placement of biliary stent. On 04/25/2021 she underwent endoscopic ultrasound which showed significant dilatation of the main pancreatic duct in the body and tail of the pancreas measuring up to 7 mm in diameter. A hypoechogenic mass measuring 2.8 x 2.3 cm was noted in the head of the pancreas. There was associated compression of the mesenteric vein. FNA biopsy of the mass showed adenocarcinoma. Her baseline CA 19-9 level was 170 U/mL. She had surgical consultation with on 05/22/2021. Given the associated SMV involvement, she was recommended to have neoadjuvant chemotherapy. On 05/24/2021 she underwent repeat ERCP with replacement of the biliary stent. At that time she also underwent EGD with dilatation of the pylorus and duodenum. I had seen her initially on 06/02/2021. She had good performance status, and she was recommended to begin neoadjuvant chemotherapy with the FOLFIRINOX regimen. She was agreeable, though she opted to delay starting her treatment. Her other medical illnesses have been limited to hypertension and GERD. Her only prior surgery was a hysterectomy and bladder suspension in 1999. She has a history of smoking 1 pack of cigarettes daily for 25 years, but she quit smoking in 2003. INTERIM HISTORY: She began cycle 1 of neoadjuvant FOLFIRINOX on 06/26/2021. Her CA 19-9 level at that point had increased to 313.0 U/mL. She experienced some side effects during the treatment, including jitteriness and feeling of apprehension. She did not have hypotension or difficulty breathing, and the symptoms improved somewhat with Benadryl. She experienced no further treatment related toxicity, and she then proceeded with cycle 2 on 07/18/2021. It was administered with an oral steroid premedication regimen. Despite that, she again experienced significant jitteriness and during subsequent follow-up she also developed neuropathy symptoms. At her follow-up visit on 08/02/2021 there was a slight decrease in the CA 19-9 level to 283.8 U/mL. She continue with cycle 3 of FOLFIRINOX, but at that point I did opt to admit the oxaliplatin. Patient presents today for follow-up. She states that she has been feeling well. She is having some mild fatigue. Her appetite has been good. No fever, chills, night sweats. No sinus drainage or sore throat. No shortness of breath, cough, chest pain no nausea or vomiting. No diarrhea or constipation. No abdominal pain. She states she is having some urinary frequency and wonders if that has to do with her glucose being elevated. She denies joint pain or bone pain. No headaches or dizziness. She has been monitoring her blood pressure and it still remains elevated today's blood pressure is 165/96. Her blood pressures over the past week of been running 130s to 140s over high 80s to 90s. She is currently taking lisinopril 20 mg p.o. daily. Review Of Symptoms: See above. Past Medical History: Gastroesophageal reflux disease Hypertension Past Surgical History: EGD and ERCP with replacement of biliary stent in 2020 Endoscopic ultrasound with FNA biopsy of pancreatic head mass in 2020 ERCP with placement of biliary stent in 2020 Hysterectomy and bladder suspension in 1999 Allergies: No Known Allergies. Medications: Flonase 1 [place](s) (of 50 mcg/act) Suspension Nasal daily Lisinopril 1 Tablet (of 20 mg) Oral daily LORazepam (1 mg) Tablet Oral Take as Directed Potassium Chloride Crystals Take as Directed Prochlorperazine Maleate (10 mg) Tablet Oral Take as Directed Family History: Father with an aortic aneurysm at age 67. Mother with colon cancer at age 76. She also had diabetes. A brother and a sister also are , cause unknown to the patient. Social History: Ms. Aggarwal is . Ms. Aggarwal quit smoking 18 years ago but had smoked 1.0 pack/day for 25 years. She has no history of drinking. She has a history of smoking 1 pack of cigarettes daily for 25 years. She quit smoking in 2003. She does not drink alcohol. Physical Examination: Performed on Aug 29, 2021 10:20: Height - 65.00 in, BP - 165/96 mm(hg) (HIGH), Performed on Aug 29, 2021 10:19: Height - 65.00 in, Weight - 130.6 lbs (HIGH), BSA - 1.65 sq.m, BMI - 21.73, Temperature - 98.5 F, Pulse - 74 /min, Respiration - 16 /min, BP - 168/103 mm(hg) (HIGH), O2 Sat - 99 %, Pain - 0, and Fatigue - 1. Performance Status: 1 - No physically strenuous activity, but ambulatory and able to carry out light or sedentary work (e.g. office work, light house work). (ECOG) Constitutional Alert, cooperative, oriented. Mood and affect appropriate. Appears close to chronological age. Well nourished. Well developed. Head Normocephalic; no scars. Respiratory Lungs are clear to auscultation without rhonchi or wheezing. Cardiovascular Regular rate and rhythm of heart without murmurs, gallops or rubs. Abdomen Non-tender, non-distended, no masses, ascites or hepatosplenomegaly. Good bowel sounds. No guarding or rebound tenderness. Extremities No visible deformities, no cyanosis, clubbing or edema. Pulses 3+ and equal bilaterally. Musculoskeletal No tenderness or swelling, normal range of motion without obvious weakness. Psychiatric Alert and oriented times three. Coherent speech. Verbalizes understanding of our discussions today. Laboratory: Test performed on Aug 29, 2021 08:10 Sodium 138 mmol/L Potassium 3.7 mmol/L Chloride 104 mmol/L CO2 22 mmol/L Anion Gap 15.7 BUN 9 mg/dL Creatinine 0.6 mg/dL Cr Clearance (Est) 94.0600 mL/min eGFR 101.6 mL/min Glucose 265 mg/dL Osmolality - Calculated 294 mOsm/kg Calcium 9.3 mg/dL Protein, Total 6.6 g/dL Albumin 4.2 g/dL Globulin 2.4 g/dL Bilirubin, Total 0.3 mg/dL ALT (SGPT) 29 U/L AST (SGOT) 26 U/L Alkaline Phosphatase 99 IU/L WBC 4.5 10 3/uL RBC 3.92 10 6/uL HGB 11.8 g/dL HCT 36.0 % MCV 91.8 fl MCH 30.1 pg MCHC 32.8 g/dL RDW 14.0 % Platelet Count 147 10 3/cmm MPV 10.6 fL Neutrophils 2.52 10 3/uL Lymphocytes 1.3 10 3/uL Monocytes 0.5 10 3/uL Eosinophils 0.1 10 3/uL Basophils 0.1 10 3/uL Neutrophil % 55.7 % Lymphocyte % 28.7 % Monocyte % 9.9 % Eosinophil % 2.4 % Basophils % 1.3 % NRBC % 0 % CA 19-9 170.3 U/mL Test performed on Jun 26, 2021 08:30 CEA 3.8 ng/mL Impression: 1. Adenocarcinoma involving the head of the pancreas. By clinical evaluation, her disease appears to be stage IB (T2, N0, M0), but she was deemed an operable due to associated compression of the mesenteric vein. 2. History of hypertension, currently not requiring medication. 3. GERD. Plan: Patient with adenocarcinoma involving the head of the pancreas, initially presenting in February with obstructive jaundice. At that time she underwent ERCP with placement of biliary stent. Her endoscopic ultrasound on 04/25/2021 showed a pancreatic head mass measuring 2.8 x 2.3 cm. FNA biopsy was positive for adenocarcinoma. By ultrasound there was associated compression of the mesenteric vein, but there was no adenopathy noted, and there has been no evidence of metastatic disease by CT scan. As such, by clinical evaluation her disease appears to be stage IB (T2, N0, M0), but she was deemed an operable due to the associated mesenteric vein compression. She was recommended to proceed with neoadjuvant chemotherapy. As she had good performance status, I had recommended treatment with the FOLFIRINOX regimen. She began cycle 1 on 06/26/2021. At that point the CA 19 9 level had increased to 313.0 U/mL. She experienced some jitteriness and apprehension during the initial treatment. The symptoms did show some improvement with Benadryl. Side effects were otherwise mild and limited to diarrhea, neuropathy, and myelosuppression. Overall, she tolerated the treatment extremely well. She did require a delay with cycle 2 due to neutropenia. With that cycle the 5-FU bolus was omitted, and he was given with an oral steroid premedication regimen. She again experienced significant jitteriness during the treatment. With cycle 3, on 08/02/2021, the oxaliplatin was omitted. At that point there was a slight decrease in the CA 19-9 level to 283.8 U/mL. Patient presents today for follow-up. She states she has been feeling well. Her neutropenia has been resolved. Patient has been having anxiousness and jittery reaction chemotherapy regimen. Oxaliplatin was held at that time but then it was determined that the dexamethasone was causing the reaction so it has been held. We will administer the FOLFIRINOX regimen today including oxaliplatin at a reduced dose. Her CA 19???9 was checked today and there has been an improvement. It is 170.3 compared to her last level at 283.8. Patient is to return to the clinic in 1 week with CBC, CMP. Due to blood pressure remaining elevated we will increase her lisinopril to 20 mg p.o. twice daily patient is to monitor her blood pressure and call with any problems. Blood glucose levels have been elevated. Patient would prefer not to start putting scale insulin at this point. She is going to try diet control and we will check a hemoglobin A1C at next blood draw. In the meantime she will monitor her blood glucose levels at home twice a day and bring readings to the clinic with her next week. Signed By: Pretty [facility]ente N.P. <<Signature on File>>
[2021-08-29] MEDS: diphenhydrAMINE 25 mg Capsule PO (16:20)
[2021-09-04 08:33] LABS: Basophils # 0.1 10^3/uL (0.0-0.1); Basophils % 0.7 %; Eosinophils # 0.1 10^3/uL (0.0-0.8); Eosinophils % 0.4 %; Hematocrit 36.1 % (37.0-47.0); Hemoglobin 11.9 g/dL (11.5-15.3); Lymphocytes # 1.2 10^3/uL (0.8-4.8); Lymphocytes % 8.1 %; Mean Corpuscular Hemoglobin 30.7 pg (28.0-34.0); Mean Corpuscular Volume 93.3 fl (81-99); Mean Platelet Volume 11.2 fL (7.4-10.4); Monocytes % 6.8 %; Neutrophils # 11.94 10^3/uL (1.8-7.7); Neutrophils % 82.9 %; Nucleated Red Blood Cells % 0 %; Platelet Count 99 10^3/cmm (130-400); Red Blood Count 3.87 10^6/uL (4.1-5.3); Red Cell Distribution Width 13.6 % (12.1-15.1); White Blood Count 14.4 10^3/uL (4.0-10.0)
[2021-09-04 09:31] LABS: Alanine Aminotransferase 21 U/L (0-33); Albumin Level 4.5 g/dL (3.5-5.2); Alkaline Phosphatase 150 IU/L (35-105); Anion Gap 13.8 (5-19); Aspartate Amino Transferase 18 U/L (0-32); Blood Urea Nitrogen 8 mg/dL (8-23); Calcium 9.4 mg/dL (8.5-10.5); Carbon Dioxide 23 mmol/L (22-29); Chloride 97 mmol/L (98-107); Globulin 2.1 g/dL (1.3-4.6); Glomerular Filtration Rate 84.8 mL/min (90-130); Glucose 199 mg/dL (65-115); Osmolality Calculated 274 mOsm/kg (285-295); Potassium 3.8 mmol/L (3.5-5.1); Sodium 130 mmol/L (136-145); Total Bilirubin 0.3 mg/dL (0.15-1.2); Total Protein 6.6 g/dL (6.6-8.7)
--- NOTE | 2021-09-08 14:58 | ONC FU_ITS ---
Dr. Rosenthal Patient Follow-Up Note Patient: Angelique Aggarwal Unit #: [id number]: 1960 Dicatated By: Bob Rosenthal M.D.Date of Visit:Sep 04, 2021 Onc Med Follow-up/Prog Note Chief Complaint: Pancreatic cancer. History of Present Illness: This is a 61 year-old woman with adenocarcinoma involving the head of the pancreas, by clinical evaluation stage IB (T2, N0, M0). On 03/09/2021 she presented to the emergency room with recent onset of jaundice. Her total bilirubin at that time was 6.5 mg/dL. Her liver enzymes were significantly elevated with SGOT 458/32 U/L, SGPT 808/33 U/L, and alkaline phosphatase 230/105 IU/L. Her CT abdomen/pelvis showed intra and extrahepatic biliary ectasia with common bile duct measuring upwards of 12 mm. There is diffuse pancreatic duct ectasia measuring upwards of 8 mm with no visible pancreatic mass. Also noted was enlarged hydropic gallbladder but with no visible cholelithiasis. On 03/15/2021 she underwent ERCP with placement of biliary stent. On 04/25/2021 she underwent endoscopic ultrasound which showed significant dilatation of the main pancreatic duct in the body and tail of the pancreas measuring up to 7 mm in diameter. A hypoechogenic mass measuring 2.8 x 2.3 cm was noted in the head of the pancreas. There was associated compression of the mesenteric vein. FNA biopsy of the mass showed adenocarcinoma. Her baseline CA 19-9 level was 170 U/mL. She had surgical consultation with on 05/22/2021. Given the associated SMV involvement, she was recommended to have neoadjuvant chemotherapy. On 05/24/2021 she underwent repeat ERCP with replacement of the biliary stent. At that time she also underwent EGD with dilatation of the pylorus and duodenum. I had seen her initially on 06/02/2021. She had good performance status, and she was recommended to begin neoadjuvant chemotherapy with the FOLFIRINOX regimen. She was agreeable, though she opted to delay starting her treatment. Her other medical illnesses have been limited to hypertension and GERD. Her only prior surgery was a hysterectomy and bladder suspension in 1999. She has a history of smoking 1 pack of cigarettes daily for 25 years, but she quit smoking in 2003. INTERIM HISTORY: She began cycle 1 of neoadjuvant FOLFIRINOX on 06/26/2021. Her CA 19-9 level at that point had increased to 313.0 U/mL. She experienced some side effects during the treatment, including jitteriness and feeling of apprehension. She did not have hypotension or difficulty breathing, and the symptoms improved somewhat with Benadryl. She experienced no further treatment related toxicity, and she then proceeded with cycle 2 on 07/18/2021. It was administered with an oral steroid premedication regimen. Despite that, she again experienced significant jitteriness and during subsequent follow-up she also developed neuropathy symptoms. At her follow-up visit on 08/02/2021 there was a slight decrease in the CA 19-9 level to 283.8 U/mL. She continued with cycle 3 of FOLFIRINOX. She still complains of having jitteriness during the administration of the chemotherapy, despite having the oxaliplatin omitted with that cycle. Due to neutropenia, her cycle 4 was delayed until 08/29/2021. With that cycle I restarted the oxaliplatin, but at a reduced dosage. It was administered with Neulasta prophylactically. She is seen for a follow-up visit. She is now at day 15 of cycle 4. She still has a little jitteriness and twitching during her cycle 4 chemotherapy, but she otherwise tolerated it without acute toxicity. She has been feeling a little more tired generally, but she is still doing housework. ECOG score is 1. Her appetite is not as good. She does not have fever or night sweats. She has not had sore mouth or throat. She does not complain of cough, and she has not been having shortness of breath or chest pain. She sometimes feels queasy or bloated. She had a little diarrhea beginning day 2, but not bad. She has no complaints. She has no significant joint or bone pain. She does not complain of headache or dizziness. She has had a little bit of pinprick feeling and she has mild cold sensitivity. Medications: Flonase 1 [place](s) (of 50 mcg/act) Suspension Nasal daily, Lisinopril 1 Tablet (of 20 mg) Oral b.i.d., LORazepam (1 mg) Tablet Oral Take as Directed, Potassium Chloride Crystals Take as Directed, Prochlorperazine Maleate (10 mg) Tablet Oral Take as Directed Allergies: No Known Allergies. Vital Signs: Performed on Sep 04, 2021 09:08 Height - 65.00 in Weight - 127.8 lbs (LOW) BSA - 1.64 sq.m BMI - 21.27 Temperature - 97.8 F (LOW) Pulse - 84 /min Respiration - 16 /min BP - 149/89 mm(hg) (HIGH) O2 Sat - 99 % Pain - 0 Fatigue - 2 Physical Examination: Constitutional - She looks pretty good generally, Eyes - Sclerae nonicteric. Conjunctivae clear, ENMT - No lesions noted in the oral cavity, Hematologic/Lymphatic - No cervical, clavicular, or axillary adenopathy, Respiratory - Lungs are clear with good air movement bilaterally, Cardiovascular - Heart rhythm is regular. There is no murmur, gallop, or rub noted, Abdomen - Soft. Liver and spleen are not enlarged. There is no abdominal mass or ascites noted and there is no inguinal adenopathy, Extremities - No edema, Neurologic - No focal neurologic deficits noted. Lab/Imaging: Test performed on Sep 04, 2021 08:15 Sodium 130 mmol/L Potassium 3.8 mmol/L Chloride 97 mmol/L CO2 23 mmol/L Anion Gap 13.8 BUN 8 mg/dL Creatinine 0.7 mg/dL Cr Clearance (Est) 79.6000 mL/min eGFR 84.8 mL/min Glucose 199 mg/dL Osmolality - Calculated 274 mOsm/kg Calcium 9.4 mg/dL Protein, Total 6.6 g/dL Albumin 4.5 g/dL Globulin 2.1 g/dL Bilirubin, Total 0.3 mg/dL ALT (SGPT) 21 U/L AST (SGOT) 18 U/L Alkaline Phosphatase 150 IU/L WBC 14.4 10 3/uL RBC 3.87 10 6/uL HGB 11.9 g/dL HCT 36.1 % MCV 93.3 fl MCH 30.7 pg MCHC 33.0 g/dL RDW 13.6 % Platelet Count 99 10 3/cmm MPV 11.2 fL Neutrophils 11.94 10 3/uL Lymphocytes 1.2 10 3/uL Monocytes 1.0 10 3/uL Eosinophils 0.1 10 3/uL Basophils 0.1 10 3/uL Neutrophil % 82.9 % Lymphocyte % 8.1 % Monocyte % 6.8 % Eosinophil % 0.4 % Basophils % 0.7 % NRBC % 0 % Test performed on Aug 29, 2021 08:10 CA 19-9 170.3 U/mL Problem List: 1. Adenocarcinoma involving the head of the pancreas. By clinical evaluation, her disease appears to be stage IB (T2, N0, M0), but she was deemed an operable due to associated compression of the mesenteric vein. 2. History of hypertension, currently not requiring medication. 3. GERD. Problems Addressed with this Encounter and Plan: Patient with adenocarcinoma involving the head of the pancreas, initially presenting in February with obstructive jaundice. At that time she underwent ERCP with placement of biliary stent. Her endoscopic ultrasound on 04/25/2021 showed a pancreatic head mass measuring 2.8 x 2.3 cm. FNA biopsy was positive for adenocarcinoma. By ultrasound there was associated compression of the mesenteric vein, but there was no adenopathy noted, and there has been no evidence of metastatic disease by CT scan. As such, by clinical evaluation her disease appears to be stage IB (T2, N0, M0), but she was deemed an operable due to the associated mesenteric vein compression. She was recommended to proceed with neoadjuvant chemotherapy. As she had good performance status, I had recommended treatment with the FOLFIRINOX regimen. She began cycle 1 on 06/26/2021. At that point the CA 19 9 level had increased to 313.0 U/mL. She experienced some jitteriness and apprehension during the initial treatment. The symptoms did show some improvement with Benadryl. Side effects were otherwise mild and limited to diarrhea, neuropathy, and myelosuppression. Overall, she tolerated the treatment extremely well. She did require a delay with cycle 2 due to neutropenia. With that cycle the 5-FU bolus was omitted, and it was given with an oral steroid premedication regimen. She again experienced significant jitteriness during the treatment and again with cycle 3 on 08/02/2021, despite having the oxaliplatin omitted. At that point there was a slight decrease in the CA 19-9 level to 283.8 U/mL. Due to neutropenia, cycle 4 was delayed until 08/29/2021. With that cycle, she restarted the oxaliplatin at a reduced dosage. It also was administered with Neulasta prophylactically. Thus far she has continued to experience jitteriness and twitching with the chemotherapy treatment. The cause is uncertain, as it has not correlated either with oxaliplatin or with steroid administration. She has experienced some myelosuppression with the chemotherapy, but tolerable. She otherwise has just mild neuropathy. She will return next week for cycle 5 of FOLFIRINOX, administered at reduced dosages and with Neulasta prophylactically. She will have restaging CT scans with Dr. Lopez after 6 cycles. Signed By: Bob Rosenthal M.D. <<Signature on File>>
[2021-09-12 08:18] LABS: Basophils % 0.3 %; Eosinophils # 0.1 10^3/uL (0.0-0.8); Eosinophils % 1.2 %; Hematocrit 34.3 % (37.0-47.0); Hemoglobin 11.5 g/dL (11.5-15.3); Lymphocytes # 1.3 10^3/uL (0.8-4.8); Lymphocytes % 13.9 %; Mean Corpuscular HGB Conc 33.5 g/dL (30.0-36.0); Mean Corpuscular Hemoglobin 31.2 pg (28.0-34.0); Mean Platelet Volume 10.2 fL (7.4-10.4); Monocytes # 0.6 10^3/uL (0.2-0.9); Monocytes % 5.9 %; Neutrophils % 76.2 %; Nucleated Red Blood Cells % 0 %; Platelet Count 112 10^3/cmm (130-400); Red Blood Count 3.69 10^6/uL (4.1-5.3); Red Cell Distribution Width 13.7 % (12.1-15.1); White Blood Count 9.3 10^3/uL (4.0-10.0)
[2021-09-12 08:38] LABS: Alanine Aminotransferase 18 U/L (0-33); Albumin Level 4.1 g/dL (3.5-5.2); Alkaline Phosphatase 109 IU/L (35-105); Anion Gap 15.3 (5-19); Aspartate Amino Transferase 18 U/L (0-32); Blood Urea Nitrogen 6 mg/dL (8-23); Calcium 8.7 mg/dL (8.5-10.5); Carbon Dioxide 23 mmol/L (22-29); Chloride 102 mmol/L (98-107); Glomerular Filtration Rate 84.8 mL/min (90-130); Glucose 198 mg/dL (65-115); Osmolality Calculated 287 mOsm/kg (285-295); Potassium 3.3 mmol/L (3.5-5.1); Sodium 137 mmol/L (136-145); Total Bilirubin 0.2 mg/dL (0.15-1.2); Total Protein 6.1 g/dL (6.6-8.7)
[2021-09-12] MEDS: dextrose 5% 250 ML 75 ML IV (09:30)
[2021-09-12] MEDS: palonosetron 0.25 mg/5 mL SDV IV (09:32)
[2021-09-12] MEDS: fosaprepitant 150 MG in sodium chloride 0.9% 150 ML 300 MG IV (09:35)
[2021-09-12] MEDS: LORazepam 2 mg/mL INJ 1 mL 0.5 MG IV (15:50)
== END 2021-09-14 23:59 | disposition home or self-care (01) ==
LOC: ONCMED 06:42
PROVIDERS: Nurse Practitioner Family; PCP Physician Assistant; Visit Provider Internal Medicine Medical Oncology
DX: Z51.11 Encounter for antineoplastic chemotherapy (principal); C25.0 Malignant neoplasm of head of pancreas; I87.1 Compression of vein; I10 Essential (primary) hypertension; K21.9 Gastro-esophageal reflux disease without esophagitis; Z79.899 Other long term (current) drug therapy
CPT/HCPCS: 36415; 36591; 80053; 85025; 86301; 96367; 96372; 96375; 96413; 96415; 96416; 96417; 96523; 99214; 99215; J0461; J0640; J1442; J1453; J2060; J2469; J2505; J9190; J9206; J9263; Q5101

== ENCOUNTER 2021-09-28 06:47 | Outpatient (RCR) | payer BC, MEDICAID, SELFPAY ==
[2021-09-26 08:50] LABS: Hematocrit 35.4 % (37.0-47.0); Hemoglobin 11.9 g/dL (11.5-15.3); Mean Corpuscular HGB Conc 33.6 g/dL (30.0-36.0); Mean Corpuscular Hemoglobin 31.4 pg (28.0-34.0); Mean Corpuscular Volume 93.4 fl (81-99); Mean Platelet Volume 10.3 fL (7.4-10.4); Platelet Count 129 10^3/cmm (130-400); Red Blood Count 3.79 10^6/uL (4.1-5.3); White Blood Count 13.3 10^3/uL (4.0-10.0)
[2021-09-26 09:16] LABS: Alanine Aminotransferase 22 U/L (0-33); Albumin Level 4.2 g/dL (3.5-5.2); Alkaline Phosphatase 132 IU/L (35-105); Anion Gap 14.2 (5-19); Aspartate Amino Transferase 20 U/L (0-32); Blood Urea Nitrogen 7 mg/dL (8-23); Cancer Antigen 19 9 180.3 U/mL (0-35); Carbon Dioxide 22 mmol/L (22-29); Chloride 103 mmol/L (98-107); Globulin 2.5 g/dL (1.3-4.6); Glomerular Filtration Rate 101.3 mL/min (90-130); Glucose 235 mg/dL (65-115); Osmolality Calculated 288 mOsm/kg (285-295); Potassium 3.2 mmol/L (3.5-5.1); Sodium 136 mmol/L (136-145); Total Bilirubin 0.3 mg/dL (0.15-1.2); Total Protein 6.7 g/dL (6.6-8.7)
[2021-09-26 09:28] LABS: Slide Review Slide Review Perform
[2021-09-26 09:30] LABS: Absolute Eosinophils 0.1 10^3/cmm (0.0-0.7); Absolute Segmented Neutrophil 7.6 10/cmm (1.6-7.1); Band Neutrophils Absolute 2.5 10^3/cmm (0.0-1.2); Eosinophils 1 %; Lymphocytes 14 %; Monocytes Absolute 0.8 10^3/cmm (0.1-0.6); Segmented Neutrophils 57 %; Total Cells Counted 100 (0-100)
[2021-09-26 09:31] LABS: Absolute Neutrophil 10.1 10^3/cmm (1.4-6.5); Lymphocytes Absolute 1.9 10^3/cmm (1.2-3.4); Platelet Estimate Decreased (Normal)
[2021-09-26] MEDS: dextrose 5% 250 ML 75 ML IV (10:00)
[2021-09-26] MEDS: sodium chlor 0.9% + KCl 40 mEq 40 MEQ/1,000 ML BAG 500 MEQ IV (10:05)
[2021-09-26] MEDS: palonosetron 0.25 mg/5 mL SDV IV (12:10)
[2021-09-26] MEDS: fosaprepitant 150 MG in sodium chloride 0.9% 150 ML 300 MG IV (12:15)
--- NOTE | 2021-09-30 09:17 | ONC FU_ITS ---
Dr. Rosenthal Patient Follow-Up Note Patient: Angelique Aggarwal Unit #: [id number]: 1960 Dicatated By: Bob Rosenthal M.D.Date of Visit:Sep 26, 2021 Onc Med Follow-up/Prog Note Chief Complaint: Pancreatic cancer. History of Present Illness: This is a 61 year-old woman with adenocarcinoma involving the head of the pancreas, by clinical evaluation stage IB (T2, N0, M0). On 03/09/2021 she presented to the emergency room with recent onset of jaundice. Her total bilirubin at that time was 6.5 mg/dL. Her liver enzymes were significantly elevated with SGOT 458/32 U/L, SGPT 808/33 U/L, and alkaline phosphatase 230/105 IU/L. Her CT abdomen/pelvis showed intra and extrahepatic biliary ectasia with common bile duct measuring upwards of 12 mm. There is diffuse pancreatic duct ectasia measuring upwards of 8 mm with no visible pancreatic mass. Also noted was enlarged hydropic gallbladder but with no visible cholelithiasis. On 03/15/2021 she underwent ERCP with placement of biliary stent. On 04/25/2021 she underwent endoscopic ultrasound which showed significant dilatation of the main pancreatic duct in the body and tail of the pancreas measuring up to 7 mm in diameter. A hypoechogenic mass measuring 2.8 x 2.3 cm was noted in the head of the pancreas. There was associated compression of the mesenteric vein. FNA biopsy of the mass showed adenocarcinoma. Her baseline CA 19-9 level was 170 U/mL. She had surgical consultation with on 05/22/2021. Given the associated SMV involvement, she was recommended to have neoadjuvant chemotherapy. On 05/24/2021 she underwent repeat ERCP with replacement of the biliary stent. At that time she also underwent EGD with dilatation of the pylorus and duodenum. I had seen her initially on 06/02/2021. She had good performance status, and she was recommended to begin neoadjuvant chemotherapy with the FOLFIRINOX regimen. She was agreeable, though she opted to delay starting her treatment. Her other medical illnesses have been limited to hypertension and GERD. Her only prior surgery was a hysterectomy and bladder suspension in 1999. She has a history of smoking 1 pack of cigarettes daily for 25 years, but she quit smoking in 2003. INTERIM HISTORY: She began cycle 1 of neoadjuvant FOLFIRINOX on 06/26/2021. Her CA 19-9 level at that point had increased to 313.0 U/mL. She experienced some side effects during the treatment, including jitteriness and feeling of apprehension. She did not have hypotension or difficulty breathing, and the symptoms improved somewhat with Benadryl. She experienced no further treatment related toxicity, and she then proceeded with cycle 2 on 07/18/2021. It was administered with an oral steroid premedication regimen. Despite that, she again experienced significant jitteriness and during subsequent follow-up she also developed neuropathy symptoms. At her follow-up visit on 08/02/2021 there was a slight decrease in the CA 19-9 level to 283.8 U/mL. She continued with cycle 3 of FOLFIRINOX. She still complained of having jitteriness during the administration of the chemotherapy, despite having the oxaliplatin omitted with that cycle. Due to neutropenia, her cycle 4 was delayed until 08/29/2021. With that cycle I restarted the oxaliplatin, but at a reduced dosage. It was administered with Neulasta prophylactically. There was a slight further decrease in the CA 19-9 level to 170.3 U/mL. She continued with cycle 5 on 09/12/2021. She again experienced significant jitteriness/apprehension during the treatment, and ultimately we felt this was probably due to the irinotecan. She is seen for a follow-up visit. She says her energy was pretty low for the first week after her last treatment, but it is better now. ECOG score is 1. Appetite is still been okay. She has not had fever. She does have a little sweating at times. She has not had sore mouth or throat. She does not complain of cough, and she has not been having shortness of breath or chest pain. She had some nausea and diarrhea during the first week after treatment. She has no other GI or complaints. She has no significant joint or bone pain. She does not complain of headache. She has felt a little bit lightheaded or off balance. She had cold sensitivity which lasted until just a couple of days ago. Medications: Flonase 1 [place](s) (of 50 mcg/act) Suspension Nasal daily, Lisinopril 1 Tablet (of 20 mg) Oral b.i.d., LORazepam (1 mg) Tablet Oral Take as Directed, Potassium Chloride Crystals Take as Directed, Prochlorperazine Maleate (10 mg) Tablet Oral Take as Directed Allergies: No Known Allergies. Vital Signs: Performed on Sep 26, 2021 11:05 Height - 65.00 in BP - 147/92 mm(hg) (HIGH) Performed on Sep 26, 2021 11:05 Height - 65.00 in Weight - 128.8 lbs (HIGH) BSA - 1.64 sq.m BMI - 21.43 Temperature - 97.6 F (LOW) Pulse - 71 /min Respiration - 16 /min BP - 159/100 mm(hg) (HIGH) O2 Sat - 99 % Pain - 0 Fatigue - 3 Physical Examination: Constitutional - She looks pretty good generally, Eyes - Sclerae nonicteric. Conjunctivae clear, ENMT - No lesions noted in the oral cavity, Hematologic/Lymphatic - No cervical, clavicular, or axillary adenopathy, Respiratory - Lungs are clear with good air movement bilaterally, Cardiovascular - Heart rhythm is regular. There is no murmur, gallop, or rub noted, Abdomen - Soft. Liver and spleen are not enlarged. There is no abdominal mass or ascites noted and there is no inguinal adenopathy, Extremities - No edema, Neurologic - No focal neurologic deficits noted. Lab/Imaging: Test performed on Sep 26, 2021 08:29 Sodium 136 mmol/L Potassium 3.2 mmol/L Chloride 103 mmol/L CO2 22 mmol/L Anion Gap 14.2 BUN 7 mg/dL Creatinine 0.6 mg/dL Cr Clearance (Est) 92.8700 mL/min eGFR 101.3 mL/min Glucose 235 mg/dL Osmolality - Calculated 288 mOsm/kg Calcium 9.0 mg/dL Protein, Total 6.7 g/dL Albumin 4.2 g/dL Globulin 2.5 g/dL Bilirubin, Total 0.3 mg/dL ALT (SGPT) 22 U/L AST (SGOT) 20 U/L Alkaline Phosphatase 132 IU/L WBC 13.3 10 3/uL Manual Segs % 57 % Manual Bands % 19.0 % RBC 3.79 10 6/uL HGB 11.9 g/dL Manual Lymphs % 14 % Atypical Lymphs % 0.0 % HCT 35.4 % MCV 93.4 fl Total Cells Counted 100 Manual Monos % 6.0 % MCH 31.4 pg Manual Eos % 1 % MCHC 33.6 g/dL Manual Basos % 0.0 % RDW 14.0 % Metamyelocytes % 1.0 % Platelet Count 129 10 3/cmm MPV 10.3 fL Myelocytes % 2.0 % CBC Slide Review Slide Review Perform Platelet Estimate Decreased Manual Segs Abs 7.6 10/cmm Manual Bands Abs 2.5 10 3/cmm Manual Neutrophils Abs 10.1 10 3/cmm Manual Lymphocytes Abs 1.9 10 3/cmm Manual Monocytes Abs 0.8 10 3/cmm Manual Eosinophils Abs 0.1 10 3/cmm Manual Basophils Abs 0.0 10 3/cmm CA 19-9 180.3 U/mL Problem List: 1. Adenocarcinoma involving the head of the pancreas. By clinical evaluation, her disease appears to be stage IB (T2, N0, M0), but she was deemed an operable due to associated compression of the mesenteric vein. 2. History of hypertension, currently not requiring medication. 3. GERD. Problems Addressed with this Encounter and Plan: Patient with adenocarcinoma involving the head of the pancreas, initially presenting in February with obstructive jaundice. At that time she underwent ERCP with placement of biliary stent. Her endoscopic ultrasound on 04/25/2021 showed a pancreatic head mass measuring 2.8 x 2.3 cm. FNA biopsy was positive for adenocarcinoma. By ultrasound there was associated compression of the mesenteric vein, but there was no adenopathy noted, and there has been no evidence of metastatic disease by CT scan. As such, by clinical evaluation her disease appears to be stage IB (T2, N0, M0), but she was deemed an operable due to the associated mesenteric vein compression. She was recommended to proceed with neoadjuvant chemotherapy. As she had good performance status, I had recommended treatment with the FOLFIRINOX regimen. She began cycle 1 on 06/26/2021. At that point the CA 19 9 level had increased to 313.0 U/mL. She experienced some jitteriness and apprehension during the initial treatment. The symptoms did show some improvement with Benadryl. Side effects were otherwise mild and limited to diarrhea, neuropathy, and myelosuppression. Overall, she tolerated the treatment extremely well. She did require a delay with cycle 2 due to neutropenia. With that cycle the 5-FU bolus was omitted, and it was given with an oral steroid premedication regimen. She again experienced significant jitteriness during the treatment and again with cycle 3 on 08/02/2021, despite having the oxaliplatin omitted. At that point there was a slight decrease in the CA 19-9 level to 283.8 U/mL. Due to neutropenia, cycle 4 was delayed until 08/29/2021. With that cycle, she restarted the oxaliplatin at a reduced dosage. It also was administered with Neulasta prophylactically. She is now completed 5 cycles of treatment. She has continued to experience jitteriness and twitching throughout her course of chemotherapy. With her 5th cycle, we ultimately felt that it was most likely due to the irinotecan. She has otherwise been tolerating the chemotherapy well. She has just mild neuropathy with the oxaliplatin. During treatment she has had some decrease in her CA 19-9 level, but it has not been dramatic. She will proceed now with cycle 6 of neoadjuvant FOLFIRINOX. I am going to omit the irinotecan. The oxaliplatin dosage will remain the same. She is scheduled to have restaging CT with Dr. Lopez next week. Her further management will depend on those results. Signed By: Bob Rosenthal M.D. <<Signature on File>>
== END 2021-10-14 23:59 | disposition home or self-care (01) ==
LOC: ONCMED 06:47
PROVIDERS: PCP Physician Assistant; Visit Provider Internal Medicine Medical Oncology
DX: Z51.11 Encounter for antineoplastic chemotherapy (principal); C25.0 Malignant neoplasm of head of pancreas; I87.1 Compression of vein; I10 Essential (primary) hypertension; K21.9 Gastro-esophageal reflux disease without esophagitis; Z79.899 Other long term (current) drug therapy
CPT/HCPCS: 80053; 85007; 85025; 86301; 96365; 96367; 96375; 96413; 96415; 96416; 96417; 96523; 99215; J0640; J1453; J2469; J9190; J9263

== ENCOUNTER 2022-01-05 20:33 | Inpatient (IN) | payer BC, SELFPAY ==
[2022-01-05 20:40] VITALS: BP 146/87; PULSE 93; RESP 18; TEMP 36.7; O2SAT 100; BMI 19.4
[2022-01-05 22:16] VITALS: BP 142/95; PULSE 104; RESP 20; O2SAT 100
--- NOTE | 2022-01-05 22:54 | CTR_ITS ---
PROCEDURE INFORMATION: Exam: CT Abdomen And Pelvis With Contrast Exam date and time: 01/05/2022 11:33 PM Age: 61 years old Clinical indication: Nausea and vomiting; Abdominal pain; Generalized; Prior surgery; Surgery date: <1 month; Surgery type: ? Procedure 2 weeks ago. Hyst, bladder; Patient HX: HX of pancreatic CA C/O worsening pain since procedure 2 weeks ago w n/v; Additional info: Abd pain TECHNIQUE: Imaging protocol: Computed tomography of the abdomen and pelvis with contrast. Radiation optimization: All CT scans at this facility use at least one of these dose optimization techniques: automated exposure control; mA and/or kV adjustment per patient size (includes targeted exams where dose is matched to clinical indication); or iterative reconstruction. Contrast material: OMNI 350; Contrast volume: 75 ml; Contrast route: INTRAVENOUS (IV); COMPARISON: CT abdomen pelvis w con* [id number] 05/18/2021 2:55 PM RADIATION DOSE METRICS: Total DLP (mGy-cm): 772.03 FINDINGS: Tubes, catheters and devices: New from the previous examination is external biliary drain in stent with its distal pigtail and in the duodenum. There is also a common duct stent extending into the duodenum. Liver: There is no focal abnormality within the liver. Gallbladder and bile ducts: There is mild intrahepatic biliary tract dilatation, less than on the previous examination. There is no gallbladder wall thickening with there is some pericholecystic fluid. Please correlate clinically with the patient's symptoms. Pancreas: Pancreatic duct is markedly dilated in there is severe atrophy of the body and tail of the pancreas. There is proximally 3 cm size mass lesion in the region head of the pancreas. Spleen: The spleen is normal. Adrenal glands: The adrenal glands are normal. Kidneys and ureters: There is small benign cortical cysts in both kidneys. There is no evidence of hydronephrosis. There is no evidence of renal or ureteral calcifications. Stomach and bowel: There is a fairly large amount of feces in the right colon which could represent some constipation. Appendix: Appendix notThere is no evidence of colitis/diverticulitis. Intraperitoneal space: There is a small amount of hyperdense fluid right side of the pelvis which could represent blood. There is small amount of nonhemorrhagic ascites on the left side of the pelvis. Vasculature: The aorta demonstrates mild atherosclerotic calcification. Lymph nodes: There is no evidence of lymphadenopathy. Urinary bladder: Unremarkable as visualized. Reproductive: There has been a hysterectomy. Bones/joints: Unremarkable. No acute fracture. Soft tissues: Unremarkable. CT/CT abdomen pelvis w con* [id number] IMPRESSION: 1. Suspect small amount of intraperitoneal hemorrhage on the right side of the pelvis. 2. Pancreatic mass larger than on prior studies. 3. Increasing pancreatic duct dilatation with severe atrophy of the tail of the pancreas. 4. Small pericholecystic fluid collection of uncertain significance. 5. Biliary drainage catheter as described. COMMENTS: Consistent with the [employer]'s Incidental Findings Committee white paper (J Am Lashell Radiol 2018): Any incidental renal lesion less than 1 cm or classified as too small to characterize, or any incidental cystic renal lesion characterized as simple-appearing, is likely benign. No follow-up imaging is recommended for these lesions per consensus recommendations based on imaging criteria.
--- NOTE | 2022-01-05 22:57 | ED_ITS ---
HPI - Abdominal Pain General: Chief Complaint: Abdominal Pain Stated Complaint: abdomen pain Time Seen by Provider: 01/05/22 22:37 Source: patient Mode of arrival: ambulatory Limitations: no limitations History of Present Illness: 61-year-old female has a history of pancreatic cancer she has had a stent placed and because she had another procedure 2 weeks ago states that since that procedure she has been having increasing pain. States she supposed get a CT of her abdomen today but the power is out and she is unable to have it. States her pain is worsened tonight she is becoming concerned she rates her pain a 6 out of 10 denies any vomiting or diarrhea denies any fevers. Associated Symptoms: Denies chills, dysuria and fever(s) Related Data: Date of Last Menstrual Period: 09/08/20 Review of Systems Const: Denies: fever(s), chills, body aches or change in appetite Eyes: Denies: blurry vision or eye discomfort ENMT: Denies: throat pain or dental pain Card: Denies: chest pain Resp: Denies: dyspnea GI: Reports: abdominal pain : Denies: dysuria Musc: Denies: neck pain or back pain Skin/Breast: Denies: rash Neuro: Denies: headache(s) Psych: Denies: depression Justin/Lymph: Denies: easy bruising All/Imm: Denies: urticaria PFSH ED PFSH: Medical History (Updated 01/06/22 @ 02:06 by Brannon Mejia MD) Adenocarcinoma of head of pancreas GERD (gastroesophageal reflux disease) HTN (hypertension) Pancreatic cancer Surgical History (Updated 01/06/22 @ 02:03 by Thomas Garcia MD) Encounter for biliary drainage tube placement H/O: hysterectomy History of bladder suspension procedure History of ERCP Presence of pancreatic duct stent Social History (Updated 01/05/22 @ 22:59 by Brannon Mejia MD) Smoking and tobacco status: former smoker Quit status (tobacco): has quit using tobacco Year quit tobacco: 2003 Former quit date comment: 25 py Substance/Drug Use: never Female Reproductive History: Date of last menstrual period: 09/08/20 Physical Exam Const: COMMON NORMALS: no acute distress, patient oriented x3 and healthy appearing HENMT: COMMON NORMALS: normocephalic and atraumatic HEAD & SCALP: normocephalic and atraumatic Eye: COMMON NORMALS: Equal, round and reactive pupils present and EOMs intact bilaterally PUPIL: Yes Equal, round and reactive pupils present Neck/C-Spine: COMMON NORMALS: full ROM and supple Chest: COMMONS NORMALS: normal inspection of the chest and normal palpation of entire chest wall Resp: COMMON NORMALS: normal respiratory effort, No retractions, No use of accessory muscles and clear to auscultation bilaterally AUSCULTATION: clear to auscultation bilaterally Cardio: COMMON NORMALS: regular rate, regular rhythm and No murmurs present (Cardio) RATE: regular rate RHYTHM: regular rhythm GI: COMMON NORMALS: Normal to inspection, nondistended, normoactive bowel so unds present, Soft to palpation, non-tender and no masses PALPATION: Yes Soft to palpation Extremity: COMMON NORMALS: normal to inspection and full ROM Neuro: COMMON NORMALS: patient oriented x3, moves all extremities and no focal motor deficits Psych: COMMON NORMALS: mental status grossly normal, Normal thought process present and cooperative THOUGHT PROCESS: Normal thought process present Skin: COMMON NORMALS: no rashes or lesions noted and no wounds GENERAL SKIN EXAM: no rashes or lesions noted Course Vital Signs: Vital signs: Vital Signs Temperature 98.0 F 01/05/22 20:40 Pulse Rate 64 01/06/22 01:30 Respiratory Rate 15 01/06/22 01:30 Blood Pressure 101/67 01/06/22 01:30 Pulse Oximetry 100 01/06/22 01:30 MDM - Abdominal Pain Medical Decision Making Patient presents here with abdominal pain she has no signs of acute abdominal emergency white count hemoglobin here is normal she does have possible blood on CT but has shown no signs of bleeding here with a normal blood pressure her pain is improved here she is hyponatremic spoke to the hospitalist will admit for the hyponatremia also spoke to surgery who is consulted at this time. Lab Data : 01/05/22 23:23 01/05/22 23:23 Labs/Radiology: Radiology Impressions Abdomen/Pelvis CT 01/05/22 22:54 IMPRESSION: 1. Suspect small amount of intraperitoneal hemorrhage on the right side of the pelvis. 2. Pancreatic mass larger than on prior studies. 3. Increasing pancreatic duct dilatation with severe atrophy of the tail of the pancreas. 4. Small pericholecystic fluid collection of uncertain significance. 5. Biliary drainage catheter as described. COMMENTS: Consistent with the [employer]'s Incidental Findings Committee white paper (J Am Lashell Radiol 2018): Any incidental renal lesion less than 1 cm or classified as too small to characterize, or any incidental cystic renal lesion characterized as simple-appearing, is likely benign. No follow-up imaging is recommended for these lesions per consensus recommendations based on imaging criteria. ADDENDUM: 01/06/22 0104 Addendum: THIS REPORT CONTAINS FINDINGS THAT MAY BE CRITICAL TO PATIENT CARE. The findings were verbally communicated via telephone conference with BRANNON MEJIA at 1:01 AM CDT on 01/06/2022. The findings were acknowledged and understood. Laboratory Results WBC 10.1 10^3/uL (4.0-10.0) H 01/05/22 23: RBC 4.05 10^6/uL (4.1-5.3) L 01/05/22 23: Hgb 12.4 g/dL (11.5-15.3) 01/05/22 23: Hct 34.6 % (37.0-47.0) L 01/05/22 23: MCV 85.4 fl (81-99) 01/05/22 23: MCH 30.6 pg (28.0-34.0) 01/05/22 23: MCHC 35.8 g/dL (30.0-36.0) 01/05/22 23: RDW 13.5 % (12.1-15.1) 01/05/22 23: Plt Count 243 10^3/cmm (130-400) 01/05/22 23: MPV 10.4 fL (7.4-10.4) 01/05/22 23: Neut % (Auto) 79.3 % 01/05/22 23: Lymph % (Auto) 12.8 % 01/05/22 23: [place] % (Auto) 6.2 % 01/05/22 23: Eos % (Auto) 0.9 % 01/05/22 23: Baso % (Auto) 0.5 % 01/05/22 23: Neut # (Auto) 8.02 10^3/uL (1.8-7.7) H 01/05/22 23:23 Lymph # (Auto) 1.3 10^3/uL (0.8-4.8) 01/05/22 23:23 [place] # (Auto) 0.6 10^3/uL (0.2-0.9) 01/05/22 23:23 Eos # (Auto) 0.1 10^3/uL (0.0-0.8) 01/05/22 23:23 Baso # (Auto) 0.1 10^3/uL (0.0-0.1) 01/05/22 23:23 Nucleated RBC % (auto) 0 % 01/05/22 23:23 Nucleated RBCs # 0.0 /100WBC 01/05/22 23:23 Sodium 121 mmol/L (136-145) L 01/05/22 23:23 Potassium 4.6 mmol/L (3.5-5.1) 01/05/22 23:23 Chloride 86 mmol/L (98-107) L 01/05/22 23:23 Carbon Dioxide 20 mmol/L (22-29) L 01/05/22 23:23 Anion Gap 19.6 (5-19) H 01/05/22 23:23 BUN 25 mg/dL (8-23) H 01/05/22 23:23 Creatinine 0.7 mg/dL (0.5-0.9) 01/05/22 23:23 GFR Calculation 84.8 mL/min (90-130) L 01/05/22 23:23 Glucose 142 mg/dL (65-115) H 01/05/22 23:23 Calculated Osmolality 259 mOsm/kg (285-295) L 01/05/22 23:23 Calcium 10.0 mg/dL (8.5-10.5) 01/05/22 23:23 Total Bilirubin 2.4 mg/dL (0.15-1.2) H 01/05/22 23:23 AST 43 U/L (0-32) H 01/05/22 23:23 ALT 63 U/L (0-33) H 01/05/22 23:23 Alkaline Phosphatase 349 IU/L (35-105) H 01/05/22 23:23 Total Protein 8.0 g/dL (6.6-8.7) 01/05/22 23:23 Albumin 4.6 g/dL (3.5-5.2) 01/05/22 23:23 Globulin 3.4 g/dL (1.3-4.6) 01/05/22 23:23 Lipase 6 U/L (13-60) L 01/05/22 23:23 Discharge Plan Discharge Patient Disposition: Admitted As Inpatient Clinical Impression: Hyponatremia, Abdominal pain, Pancreatic cancer Prescriptions: No Action potassium chloride 10 mEq capsule, extended release 10 meq PO DAILY Qty: 30 3RF amlodipine 5 mg tablet 5 mg PO DAILY Qty: 30 0RF fluticasone propionate 50 mcg/actuation spray,suspension 2 spray INTRANASAL DAILY PRN (Reason: Allergy Symptoms) 0RF Referrals: Kristina Orellana PA [Primary Care Provider] - Coding Level of Care Code ED Electronic Train Control Technician for Chg Fwd Exam Comprehensive
[2022-01-05] MEDS: HYDROmorphone 1 mg/mL INJ 1 mL IVP (23:15)
[2022-01-05] MEDS: ondansetron 2 mg/ML SDV 2 mL 4 MG IVP (23:15)
[2022-01-05 23:28] LABS: Basophils # 0.1 10^3/uL (0.0-0.1); Basophils % 0.5 %; Eosinophils # 0.1 10^3/uL (0.0-0.8); Eosinophils % 0.9 %; Hematocrit 34.6 % (37.0-47.0); Hemoglobin 12.4 g/dL (11.5-15.3); Lymphocytes # 1.3 10^3/uL (0.8-4.8); Lymphocytes % 12.8 %; Mean Corpuscular HGB Conc 35.8 g/dL (30.0-36.0); Mean Corpuscular Hemoglobin 30.6 pg (28.0-34.0); Mean Corpuscular Volume 85.4 fl (81-99); Mean Platelet Volume 10.4 fL (7.4-10.4); Monocytes # 0.6 10^3/uL (0.2-0.9); Monocytes % 6.2 %; Neutrophils # 8.02 10^3/uL (1.8-7.7); Neutrophils % 79.3 %; Nucleated Red Blood Cells % 0 %; Platelet Count 243 10^3/cmm (130-400); Red Blood Count 4.05 10^6/uL (4.1-5.3); Red Cell Distribution Width 13.5 % (12.1-15.1); White Blood Count 10.1 10^3/uL (4.0-10.0)
[2022-01-05 23:30] VITALS: BP 110/73; PULSE 77; RESP 15; O2SAT 97
[2022-01-05] MEDS: iohexol 350 mg/mL 100 mL Btl IV (23:43)
[2022-01-05 23:46] LABS: Alanine Aminotransferase 63 U/L (0-33); Albumin Level 4.6 g/dL (3.5-5.2); Alkaline Phosphatase 349 IU/L (35-105); Aspartate Amino Transferase 43 U/L (0-32); Blood Urea Nitrogen 25 mg/dL (8-23); Carbon Dioxide 20 mmol/L (22-29); Chloride 86 mmol/L (98-107); Globulin 3.4 g/dL (1.3-4.6); Glomerular Filtration Rate 84.8 mL/min (90-130); Glucose 142 mg/dL (65-115); Lipase 6 U/L (13-60); Osmolality Calculated 259 mOsm/kg (285-295); Sodium 121 mmol/L (136-145); Total Bilirubin 2.4 mg/dL (0.15-1.2)
[2022-01-05 23:47] LABS: Anion Gap 19.6 (5-19); Potassium 4.6 mmol/L (3.5-5.1)
[2022-01-06] VITALS (10 sets, daily range): BP systolic 97–130; BP diastolic 58–86; PULSE 62–70; RESP 14–17; TEMP 35.9–37.2; O2SAT 97–100; BMI 19.4
[2022-01-06] MEDS: sodium chloride 0.9% 1,000 ML 999 ML IV (00:09)
--- NOTE | 2022-01-06 02:54 | P.HP_ITS ---
Providers/Chief Complaint Admitting Physician: Thomas Garcia Primary Care Provider: Kristina Orellana Chief Complaint: abdomen pain History of Present Illness Pleasant 61-year-old lady with adenocarcinoma involving head of the pancreas, with history of biliary drain placement, initially found inoperable due to mesenteric vein compression, status post chemotherapy with reported response with plans for Whipple procedure with Dr. Lopez at [facility]. Due to biliary obstruction and dilation, severe hyperbilirubinemia, T bili reported as high as 8, underwent placement of biliary drain 2 weeks ago. Since the procedure was having pain in the right lower chest/right upper quadrant, making it difficult for her to move, and came for evaluation last night due to increasing pain. She was also supposed to have a evaluation by CT abdomen but due to power outage was unable to get it. With worsened pain she became concerned. She had no vomiting before presentation, although with pain medication in ER had nausea and an episode of vomiting. With pain medication her pain did improve. Her and her ex- report that the drain has been draining well without issues. It appears that bilirubin has been gradually decreasing. Her bilirubin is noted currently at 2.4, which is lower than 2.7 about a week ago. Alk phos today is lower as well, down to 349 from 569 a week back. She denies pain anywhere else in her abdomen. She has been having issues with constipation, although did have a bowel movement reports last morning. She has not been eating very well especially in the last few days although has maintained some oral intake. She usually avoids salt in her food. Her sodium is noted lower than prior at 121. Lipase is 6. AST and ALT with mild elevation 43, 63. CT abdomen pelvis obtained in ER shows 1. Suspect small amount of intraperitoneal hemorrhage on the right side of the pelvis. 2. Pancreatic mass larger than on prior studies. 3. Increasing pancreatic duct dilatation with severe atrophy of the tail of the pancreas. 4. Small pericholecystic fluid collection of uncertain significance. 5. Biliary drainage catheter as described. Noted fairly large amount of feces in the right colon. She is not sure if there may have been a small amount of blood in the biliary drainage bag, although there is none currently. They report also that the lidocaine patch was going to be prescribed for her when they discussed regarding pain at the right upper quadrant with team at [facility], as it was considered pain was produced with intercostal nerve c ompression. Review of Systems Const: Reports: change in appetite; Denies: fever(s), chills or malaise Eyes: Denies: change in vision, eye discomfort or eye redness ENMT: Denies: throat pain, oral sores or ear or mastoid pain Card: Denies: chest pain, edema, pre-syncope or dyspnea on exertion Resp: Denies: dyspnea, productive cough, change in phlegm color or hemoptysis GI: Reports: abdominal pain, nausea and vomiting; Denies: diarrhea, constipation, hematochezia or melena : Denies: flank pain, urinary frequency or hematuria Musc: Denies: back pain, joint swelling or joint redness Skin/Breast: Denies: rash or new lesions Neuro: Denies: headache(s), numbness in extremities, weakness in extremities, dizziness, confusion or seizure-like activity Endo: Denies: polyuria or polydipsia Justin/Lymph: Denies: easy bleeding or tender lymph nodes All/Imm: Denies: urticaria or tongue swelling Medications/Allergies Home Medications Medication Instructions Recorded Confirmed Last Taken Type fluticasone propionate 50 2 spray INTRANASAL DAILY PRN 03/09/21 05/18/21 Unknown History mcg/actuation nasal spray,suspension potassium chloride 10 mEq 10 meq PO DAILY #30 cap 10/23/21 Unknown Rx capsule,extended release amlodipine 5 mg tablet 5 mg PO DAILY #30 tab 10/27/21 Unknown Rx Allergies Allergy/AdvReac Type Severity Reaction Status Date / Time No Known Allergies Allergy Verified 05/18/21 14:05 PFSH Acute PFSH: Medical History Adenocarcinoma of head of pancreas GERD (gastroesophageal reflux disease) HTN (hypertension) Pancreatic cancer Surgical History Encounter for biliary drainage tube placement H/O: hysterectomy History of biliary duct stent placement History of bladder suspension procedure History of ERCP Family History Mother Cancer Colon, kidney Social History Smoking and tobacco status: former smoker Quit status (tobacco): has quit using tobacco Year quit tobacco: 2003 Former quit date comment: 25 py Alcohol intake: never Substance/Drug Use: never Lives independently: Yes Household members: other Details: Ex- Marital status: Female Reproductive History: Date of last menstrual period: 09/08/20 Vitals/I&O/Wt Last Vital Signs Temp 98.0 F 01/05/22 20:40 Pulse 63 01/06/22 02:45 Resp 14 01/06/22 02:45 BP 117/71 01/06/22 02:45 Pulse Ox 98 01/06/22 02:45 01/05/22 01/05/22 01/06/22 14:59 22:59 06:59 Intake Total 1000 / 1000 Balance 1000 / 1000 Weight last 48 hrs Weight 53.07 kg Physical Exam Narrative: Ex- accompanies her at bedside. Const: COMMON NORMALS: alert GENERAL APPEARANCE: cooperative ORIEN TATION/CONSCIOUSNESS: Yes awake HENMT: COMMON NORMALS: normocephalic, EAC's normal, Normal external nose present and moist oral mucous membranes HEAD & SCALP: normocephalic NOSE: Normal external nose present EXTERNAL AUDITORY CANAL: EAC's normal Neck/C-Spine: COMMON NORMALS: no meningeal signs Chest: CHEST: Yes Symmetrical chest wall rise Resp: COMMON NORMALS: clear to auscultation bilaterally AUSCULTATION: clear to auscultation bilaterally Cardio: COMMON NORMALS: regular rate, regular rhythm and No murmurs present (Cardio) RATE: regular rate RHYTHM: regular rhythm GI: COMMON NORMALS: Soft to palpation and non-tender PALPATION: Yes Soft to palpation OTHER: Drain RUQ in position, no drainage around the catheter, no surrounding erythema or swelling. Clear greenish bile in bag. Extremity: COMMON NORMALS: no pedal edema Neuro: COMMON NORMALS: moves all extremities SENSORIUM/ORIENTATION: Yes alert MENINGEAL SIGNS: Yes no meningeal signs Psych: COMMON NORMALS: mental status grossly normal Skin: COMMON NORMALS: no wounds RASHES: no rashes Data : 01/05/22 23:23 01/05/22 23:23 A&P Assessment and plan (1) Hyponatremia: Severe hyponatremia. Suspect hypovolemic hyponatremia with reduced oral intake recently. Avoids salt. Cannot exclude some component of SIADH secondary to pain. We will request urine studies. She has received fluid challenge with 1 L NS in ER. Hold off additional imaging for now, recheck sodium, follow sodium at intervals. Chronicity is unknown this is new hyponatremia over the last week with worsening sodium from 131 down to 121. Avoid rapid sodium rise. Clear liquid diet for now due to nausea and vomiting. Liberalize sodium intake. Check TSH, urine sodium, osmolality. Status: Acute (2) Abdominal pain: Pain at cholecystotomy tube right lower chest/right upper quadrant. No sign of infection around the tube. No sign of infection as the tube is been draining well, and alk phos, T bili appear to be gradually decreasing. Incidentally noted on CT possible small amount of intraperitoneal hemorrhage on the right side of the pelvis. Not sure if this could be related some bleeding from the tube. She currently does not show signs of orthostasis or acute bleeding. Hemoglobin is comparable, slightly higher than prior, possibly with some hemoconcentration. She is not on any blood thinners or antiplatelet agents. Monitor in the hospital for now, monitor vital signs. Recheck hemoglobin. Appreciate surgical evaluation. For pain around biliary catheter she did receive Dilaudid with response in symptoms, however, subsequently with nausea and vomiting. Avoid Dilaudid. Morphine as needed for severe pain, otherwise Tylenol. Lidocaine patch was going to be prescribed for her by [facility] team. Will order lidocaine patch here. Should follow-up with [facility] team for reassessment when possible. No bed was available there when checked from ER. Status: Acute (3) Encounter for attention to other artificial openings of digestive tract: Pain around cholecystotomy drain as above. Status: Acute (4) History of biliary duct stent placement: Status: Acute (5) Adenocarcinoma of head of pancreas: Status post bili stent placement, percutaneous cholecystotomy drain. Has been t reated with chemotherapy now with plans for Whipple procedure with Dr. Lopez. Status: Acute Plan Possibly some constipation noted with fairly large amount of stool in the right colon: Dulcolax suppository. MiraLAX as needed. Consider adding fiber to diet when resumes solids. Previously compression of mesenteric vein: Previously precluded her from having surgery, but this reportedly has improved with chemotherapy and no longer an issue. GERD HTN Attestations Medical Necessity Statement*: Admission of over 2 midnights is anticipated for assessment of management of severe hyponatremia, optimization of pain control around cholecystotomy drain device, assessment for possible intraperitoneal hemorrhage in a lady with pancreatic cancer. Coding Level of Care Code Acute Director Of Revenue for Chg Fwd Diagnoses Hyponatremia E87.1 Abdominal pain R10.9 Encounter for attention to other artificial openings of digestive tract Z43.4 History of biliary duct stent placement Z98.890 Adenocarcinoma of head of pancreas C25.0
[2022-01-06 03:46] LABS: Basophils % 0.3 %; Eosinophils % 0.2 %; Hematocrit 28.2 % (37.0-47.0); Hemoglobin 9.8 g/dL (11.5-15.3); Lymphocytes # 0.7 10^3/uL (0.8-4.8); Lymphocytes % 7.5 %; Mean Corpuscular HGB Conc 34.8 g/dL (30.0-36.0); Mean Corpuscular Hemoglobin 29.9 pg (28.0-34.0); Mean Platelet Volume 10.5 fL (7.4-10.4); Monocytes # 0.4 10^3/uL (0.2-0.9); Monocytes % 4.6 %; Neutrophils # 8.27 10^3/uL (1.8-7.7); Neutrophils % 86.9 %; Nucleated Red Blood Cells % 0 %; Platelet Count 192 10^3/cmm (130-400); Red Blood Count 3.28 10^6/uL (4.1-5.3); Red Cell Distribution Width 13.4 % (12.1-15.1); White Blood Count 9.5 10^3/uL (4.0-10.0)
[2022-01-06] MEDS: pantoprazole 40 mg SDV IVP (03:57)
[2022-01-06 04:27] LABS: Alanine Aminotransferase 51 U/L (0-33); Alkaline Phosphatase 289 IU/L (35-105); Anion Gap 15.5 (5-19); Aspartate Amino Transferase 35 U/L (0-32); Blood Urea Nitrogen 22 mg/dL (8-23); Carbon Dioxide 20 mmol/L (22-29); Globulin 2.9 g/dL (1.3-4.6); Glomerular Filtration Rate 101.3 mL/min (90-130); Glucose 199 mg/dL (65-115); Magnesium 1.9 mg/dL (1.7-2.3); Osmolality Calculated 255 mOsm/kg (285-295); Potassium 4.5 mmol/L (3.5-5.1); Thyroid Stimulating Hormone 1.62 uIU/mL (0.27-4.20); Total Bilirubin 2.1 mg/dL (0.15-1.2); Total Protein 6.9 g/dL (6.6-8.7)
[2022-01-06 04:40] LABS: Chloride 92 mmol/L (98-107); Sodium 124 mmol/L (136-145)
[2022-01-06 08:46] LABS: Urine Random Sodium < 10 mmol/L
[2022-01-06 08:48] LABS: Sodium 118 mmol/L (136-145)
--- NOTE | 2022-01-06 10:33 | PM.CONSULT ---
Providers/Reason For Consult Consulting Physician/Specialty*: Jennifer Ryan DO, telenephrology Reason for Consult*: Hyponatremia Requesting Physician: Elly Hudson MD Attending Physician: Elly Hudson MD Primary Care Provider: Kristina Orellana History of Present Illness History of Present Illness Angelique Aggarwal is a 61 year old female presented for evaluation of abdominal pain. Adenocarcinoma pancreas, recent chemotherapy, bile drain, Whipple's procedure scheduled 01/23/22. Serum Na 131 mEq/L on December 28. States she drinks 5 - 6 20 oz water bottles a day. No new medications. Review of Systems Const: Reports: other (weak) Card: Denies: edema Medications/Allergies Home Medications Medication Instructions Recorded Confirmed Last Taken Type potassium chloride 10 mEq 10 meq PO DAILY #30 cap 10/23/21 01/06/22 01/05/22 09:00 Rx capsule,extended release famotidine 20 mg tablet 20 mg PO DAILY 01/06/22 01/06/22 01/05/22 09:00 History [id number] 1 cap PO TID 01/06/22 01/06/22 Unknown History 36,000-114,000-180,000 unit capsule,delay rel (Creon) lisinopril 20 mg tablet 20 mg PO DAILY 01/06/22 01/06/22 Unknown History Allergies Allergy/AdvReac Type Severity Reaction Status Date / Time No Known Allergies Allergy Verified 05/18/21 14:05 Current Medications Generic Name Dose Route Start Last Admin Trade Name Freq PRN Reason Stop Dose Admin Lipase/Protease/Amylase 1 each 01/06/22 09:00 01/06/22 10:12 [id number]-Inzaxkn Capsule PO Not Given TID EDILBERTO Lidocaine 1 patch 01/06/22 09:00 01/06/22 10:12 Lidocaine 5% Patch TOPICAL Not Given [id number] EDILBERTO Pantoprazole Sodium 40 mg 01/06/22 03:29 01/06/22 03:57 Pantoprazole 40 Mg Sdv IVP 40 mg Q24H EDILBERTO Administration PFSH Acute PFSH: Medical History Adenocarcinoma of head of pancreas GERD (gastroesophageal reflux disease) HTN (hypertension) Pancreatic cancer Surgical History Encounter for biliary drainage tube placement H/O: hysterectomy History of biliary duct stent placement History of bladder suspension procedure History of ERCP Family History Mother Cancer Colon, kidney Social History Smoking and tobacco status: former smoker Quit status (tobacco): has quit using tobacco Year quit tobacco: 2003 Former quit date comment: 25 py Alcohol intake: never Substance/Drug Use: never Lives independently: Yes Household members: other Details: Ex- Marital status: Female Reproductive History: Date of last menstrual period: 09/08/20 Vitals/I&O/Wt Last Vital Signs Temp 97.4 F L 01/06/22 07:50 Pulse 70 01/06/22 07:50 Resp 16 01/06/22 07:50 BP 107/68 01/06/22 07:50 Pulse Ox 100 01/06/22 07:50 01/05/22 01/06/22 01/06/22 22:59 06:59 14:59 Intake Total 1060 / 1060 Output Total 100 / 100 Balance 1060 / 1060 -100 / -100 Weight last 48 hrs Weight 53.07 kg Weight 53.07 kg Physical Exam Const: COMMON NORMALS: no acute distress and alert GENERAL APPEARANCE: comfortable Extremity: GENERAL: No edema Neuro: SENSORIUM/ORIENTATION: Yes alert Data : 01/06/22 03:30 01/06/22 07:50 Other Labs: urine Na < 10, Ca 9, Mg 1.9 CT Abd/Pel: Radiologist's impression: 1. Suspect small amount of intraperitoneal hemorrhage on the right side of the pelvis. 2. Pancreatic mass larger than on prior studies. 3. Increasing pancreatic duct dilatation with severe atrophy of the tail of the pancreas. 4. Small pericholecystic fluid collection of uncertain significance. 5. Biliary drainage catheter as described. Kidneys and ureters: There is small benign cortical cysts in both kidneys. There is no evidence of hydronephrosis. There is no evidence of renal or ureteral calcifications. A&P Assessment and plan (1) Hyponatremia: Status: Acute Plan seen via telemedicine with assistance of RN at bedside 1. Asymptomatic hyponatremia. Examines euvolemic. Serum sodium worsened with IV NSS. Drinking >3L water daily. Possible SIADH. Urine osmolality pending 2. Hypertension, well-controlled 3. Adenocarcinoma pancreas Recommend: water restrict < 1.5L daily. Will give lasix 10 mg IV x 1 dose. Repeat serum sodium in 6 hrs Consult Attestations Medical Necessity Statement: see above Coding Level of Care Code Acute Night Shift Manager for Vasyl Le Diagnoses Hyponatremia E87.1
--- NOTE | 2022-01-06 11:57 | PM.CONSULT ---
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 Rizzo and [place]. Patient presented to the ER last night with complaints of abdominal pain and was noted to have hyponatremia. A CT abdomen pelvis showed enlarging pancreatic mass with small amount of hematoma in the pelvis. She states that she is not constipated and does not usually take pain medications. Patient is admitted for management of hyponatremia. She is due to see her surgical oncologist day after tomorrow in [place]. Her LFTs were elevated on presentation but have improved today Review of Systems General: Reports: 10 or more systems reviewed and unremarkable except in HPI and below Medications/Allergies Home Medications Medication Instructions Recorded Confirmed Last Taken Type potassium chloride 10 mEq 10 meq PO DAILY #30 cap 10/23/21 01/06/22 01/05/22 09:00 Rx capsule,extended release famotidine 20 mg tablet 20 mg PO DAILY 01/06/22 01/06/22 01/05/22 09:00 History sukjqc-vpxfhmok-tkhnxzy 1 cap PO TID 01/06/22 01/06/22 Unknown History 36,000-114,000-180,000 unit capsule,delay rel (Creon) lisinopril 20 mg tablet 20 mg PO DAILY 01/06/22 01/06/22 Unknown History Allergies Allergy/AdvReac Type Severity Reaction Status Date / Time No Known Allergies Allergy Verified 05/18/21 14:05 Current Medications Generic Name Dose Route Start Last Admin Trade Name Freq PRN Reason Stop Dose Admin Lipase/Protease/Amylase 1 each 01/06/22 09:00 01/06/22 10:12 Phsvad-Wnkpsnlf-Ddrjstl Capsule PO Not Given TID EDILBERTO Lidocaine 1 patch 01/06/22 09:00 01/06/22 10:12 Lidocaine 5% Patch TOPICAL Not Given [id number] EDILBERTO Pantoprazole Sodium 40 mg 01/06/22 03:29 01/06/22 03:57 Pantoprazole 40 Mg Sdv IVP 40 mg Q24H EDILBERTO Administration PFSH Acute PFSH: Medical History Adenocarcinoma of head of pancreas GERD (gastroesophageal reflux disease) HTN (hypertension) Pancreatic cancer Surgical History Encounter for biliary drainage tube placement H/O: hysterectomy History of biliary duct stent placement History of bladder suspension procedure History of ERCP Family History Mother Cancer Colon, kidney Social History Smoking and tobacco status: former smoker Quit status (tobacco): has quit using tobacco Year quit tobacco: 2003 Former quit date comment: 25 py Alcohol intake: never Substance/Drug Use: never Lives independently: Yes Household members: other Details: Ex- Marital status: Female Reproductive History: Date of last menstrual period: 09/08/20 Vitals/I&O/Wt Last Vital Signs Temp 97.4 F L 01/06/22 07:50 Pulse 70 01/06/22 07:50 Resp 16 01/06/22 07:50 BP 107/68 01/06/22 07:50 Pulse Ox 100 01/06/22 07:50 01/05/22 01/06/22 01/06/22 22:59 06:59 14:59 Intake Total 1060 / 1060 Output Total 100 / 100 Balance 1060 / 1060 -100 / -100 Weight last 48 hrs Weight 117 lb Weight 117 lb Physical Exam Narrative: HEENT: Normocephalic Eye: Sclera /conjunctiva normal Chest: Port-A-Cath in place Abdomen: Soft to palpation, mildly tender, biliary drain with dressings in the right upper quadrant, nondistended Neurological: Oriented to place person and time Skin: Intact, no lesions appreciated on gross exam Data : 01/06/22 03:30 01/06/22 07:50 A&P Assessment and plan (1) Constipation: Patient was noted to be significantly constipated on the CT scan. Advance to regular diet 1 bottle of magnesium citrate and milk of molasses enema today Status: Acute (2) Pancreatic cancer: 61-year-old female with pancreatic cancer who has a biliary stent. Noted to have elevated LFTs on presentation which is improved this morning. Patient is a small pelvic hematoma, unknown primary Serial hemoglobin check. 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
[2022-01-06 12:18] LABS: Sodium 123 mmol/L (136-145)
[2022-01-06] MEDS: magnesium citrate Btl 296 mL 150 ML PO (12:49)
[2022-01-06] MEDS: FUROsemide 10 mg/mL SDV 2mL IVP (12:50)
--- NOTE | 2022-01-06 13:05 | PM.MISC ---
Miscellaneous Note Purpose of Documentation: Mini Progress Note Note: Seen today. Sodium 118. Seen by Dr. Denise. Severe consitpation. Enema's recommended. Nephrology consult pending. Patient's pain is well controlled at this time. She has no complaints or concerns. abdomen soft, nontender, lungs cta Management as per HnP Document. No changes.
[2022-01-06] MEDS: lipase-protease-amylase Capsule 1 EACH PO ×2 (14:52→17:32)
[2022-01-06 15:56] LABS: Sodium 123 mmol/L (136-145)
[2022-01-06] MEDS: sodium chloride 1 gm Tablet PO ×2 (17:32→22:00)
--- NOTE | 2022-01-06 18:37 | PC.NURSE ---
pt requests that portacath be deaccessed.states it hurts .flushed with 500 units heparin.deaccessed using aseptic technique.rachg applied
[2022-01-06 18:42] LABS: Hematocrit 29.5 % (37.0-47.0); Hemoglobin 10.6 g/dL (11.5-15.3)
[2022-01-06 19:25] LABS: Sodium 118 mmol/L (136-145)
[2022-01-06 20:58] LABS: Anion Gap 13.3 (5-19); Blood Urea Nitrogen 17 mg/dL (8-23); Calcium 9.3 mg/dL (8.5-10.5); Carbon Dioxide 24 mmol/L (22-29); Chloride 87 mmol/L (98-107); Glomerular Filtration Rate 101.3 mL/min (90-130); Glucose 144 mg/dL (65-115); Osmolality Calculated 254 mOsm/kg (285-295); Potassium 4.3 mmol/L (3.5-5.1); Sodium 120 mmol/L (136-145)
[2022-01-06 23:45] LABS: Sodium 129 mmol/L (136-145)
[2022-01-07] MEDS: pantoprazole 40 mg SDV IVP (02:40)
[2022-01-07 04:00] VITALS: BP 101/67; PULSE 64; RESP 17; TEMP 36.3; O2SAT 100
[2022-01-07 04:41] LABS: Basophils % 0.6 %; Eosinophils # 0.2 10^3/uL (0.0-0.8); Eosinophils % 3.3 %; Hematocrit 30.2 % (37.0-47.0); Hemoglobin 10.7 g/dL (11.5-15.3); Lymphocytes # 1.3 10^3/uL (0.8-4.8); Lymphocytes % 23.5 %; Mean Corpuscular HGB Conc 35.4 g/dL (30.0-36.0); Mean Corpuscular Hemoglobin 30.6 pg (28.0-34.0); Mean Corpuscular Volume 86.3 fl (81-99); Mean Platelet Volume 11.2 fL (7.4-10.4); Monocytes # 0.4 10^3/uL (0.2-0.9); Monocytes % 7.8 %; Neutrophils % 64.6 %; Nucleated Red Blood Cells % 0 %; Platelet Count 204 10^3/cmm (130-400); Red Cell Distribution Width 13.6 % (12.1-15.1); White Blood Count 5.4 10^3/uL (4.0-10.0)
[2022-01-07 05:03] LABS: Alanine Aminotransferase 56 U/L (0-33); Albumin Level 3.8 g/dL (3.5-5.2); Alkaline Phosphatase 271 IU/L (35-105); Aspartate Amino Transferase 39 U/L (0-32); Blood Urea Nitrogen 17 mg/dL (8-23); Calcium 9.3 mg/dL (8.5-10.5); Carbon Dioxide 24 mmol/L (22-29); Chloride 94 mmol/L (98-107); Globulin 2.7 g/dL (1.3-4.6); Glucose 110 mg/dL (65-115); Magnesium 2.2 mg/dL (1.7-2.3); Osmolality Calculated 268 mOsm/kg (285-295); Sodium 128 mmol/L (136-145); Total Bilirubin 1.8 mg/dL (0.15-1.2); Total Protein 6.5 g/dL (6.6-8.7)
[2022-01-07 05:04] LABS: Anion Gap 14.5 (5-19); Potassium 4.5 mmol/L (3.5-5.1)
--- NOTE | 2022-01-07 06:56 | PM.PN ---
Subjective Subjective: abd pain. high output from biliary drain. patient wants to go home as has an appointment w/ surgeon in am Medications: Reviewed: Yes Medication Review Details: Current Medications Acetaminophen (Acetaminophen 325 Mg Tablet) 650 mg PO Q6H PRN PRN Reason: Mild/Mod Pain Or Temp >/= 101 Lipase/Protease/Amylase (Gysadz-Katzzeid-Cocqokm Capsule) 1 each PO [facility]ID[facility] Last Admin: 01/06/22 17:32 Dose: 1 each Documented by: Lidocaine (Lidocaine 5% Patch) 1 patch TOPICAL [id number] [facility] Last Admin: 01/06/22 21:31 Dose: Not Given Documented by: Morphine Sulfate (Morphine 4 Mg/Ml Sdv 1 Ml) 2 mg IVP Q4H PRN PRN Reason: SEVERE PAIN Ondansetron HCl (Ondansetron 2 Mg/Ml Sdv 2 Ml) 4 mg IVP Q8H PRN PRN Reason: vomiting, or N/V if npo Pantoprazole Sodium (Pantoprazole 40 Mg Sdv) 40 mg IVP Q24H [facility] Last Admin: 01/07/22 02:40 Dose: 40 mg Documented by: Polyethylene Glycol (Polyethylene Glycol 3350 Pkt 17 Gm) 17 gm PO DAILY PRN PRN Reason: CONSTIPATION Sodium Chloride (Sodium Chloride 1 Gm Tablet) 1 gm PO BID [facility] Last Admin: 01/06/22 17:32 Dose: 1 gm Documented by: Vitals/I&O/Wt Last Vital Signs Temp 97.3 F L 01/07/22 04:00 Pulse 64 01/07/22 04:00 Resp 17 01/07/22 04:00 BP 101/67 01/07/22 04:00 Pulse Ox 100 01/07/22 04:00 01/06/22 01/06/22 01/07/22 14:59 22:59 06:59 Output Total 200 / 200 600 / 800 Balance -200 / -200 -600 / -800 Weight last 48 hrs Weight 53.433 kg Weight 53.07 kg Weight 53.07 kg Physical Exam Narrative: comfortable in bed, NARD vs noted heent- nc/at, eomi, neck supple lungs clear heart reg abd- soft, rt sided tender, biliary drain on rt side ext no edema neuro- a,,a o x 3 Data : 01/07/22 03:40 01/07/22 03:40 A&P Assessment and plan (1) Hyponatremia: 61 yr old female w/panc ca 1. hyponatremia w/ low ur na- cont fluid restriction -give ns ivf -monitor serum na every 8 hrs today- if stable this evening, then may d/c home and have pt see surgery in am and her medical doctor on Saturday01/09/22. 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
--- NOTE | 2022-01-07 07:23 | PC.NURSE ---
went in patient's room to empty bili drain, patient had emptied it herself, states it was about 3/4 full
[2022-01-07] MEDS: sodium chloride 1 gm Tablet PO (08:04)
[2022-01-07] MEDS: lipase-protease-amylase Capsule 1 EACH PO ×2 (08:04→12:38)
[2022-01-07] MEDS: sodium chloride 0.9% 1,000 ML 100 ML IV (08:05)
[2022-01-07 12:00] VITALS: BP 113/72; PULSE 78; RESP 13; TEMP 36.3; O2SAT 99
[2022-01-07 12:26] LABS: Alanine Aminotransferase 64 U/L (0-33); Albumin Level 4.2 g/dL (3.5-5.2); Alkaline Phosphatase 281 IU/L (35-105); Aspartate Amino Transferase 41 U/L (0-32); Blood Urea Nitrogen 17 mg/dL (8-23); Calcium 9.2 mg/dL (8.5-10.5); Carbon Dioxide 24 mmol/L (22-29); Chloride 93 mmol/L (98-107); Creatinine Clr Calc Pharmacy 85.2894; Globulin 3.1 g/dL (1.3-4.6); Glomerular Filtration Rate 101.3 mL/min (90-130); Glucose 172 mg/dL (65-115); Osmolality Calculated 272 mOsm/kg (285-295); Sodium 128 mmol/L (136-145); Total Bilirubin 1.6 mg/dL (0.15-1.2); Total Protein 7.3 g/dL (6.6-8.7)
--- NOTE | 2022-01-07 13:54 | PM.DCS ---
Discharge Providers Date of Admission: 01/06/22 01:59 Date of Discharge: January 07, 2022 Attending Provider at Admission: Thomas Garcia Attending Provider at Discharge: Elly Hudson MD Primary Care Provider: Kristina Orellana Diagnoses at Discharge Discharge Diagnosis (1) Hyponatremia: Status: Acute Reason for Visit Reason for Visit: abdomen pain Brief History: Pleasant 61-year-old lady with adenocarcinoma involving head of the pancreas, with history of biliary drain placement, initially found inoperable due to mesenteric vein compression, status post chemotherapy with reported response with plans for Whipple procedure with Dr. Lopez at [facility]. Due to biliary obstruction and dilation, severe hyperbilirubinemia, T bili reported as high as 8, underwent placement of biliary drain 2 weeks ago.? Since the procedure was having pain in the right lower chest/right upper quadrant, making it difficult for her to move, and came for evaluation last night due to increasing pain.? She was also supposed to have a evaluation by CT abdomen but due to power outage was unable to get it.? With worsened pain she became concerned.? She had no vomiting before presentation, although with pain medication in ER had nausea and an episode of vomiting. With pain medication her pain did improve. Her and her ex- report that the drain has been draining well without issues. It appears that bilirubin has been gradually decreasing. ? Her bilirubin is noted currently at 2.4, which is lower than 2.7 about a week ago.? Alk phos today is lower as well, down to 349 from 569 a week back. She denies pain anywhere else in her abdomen.? She has been having issues with constipation, although did have a bowel movement reports last morning. She has not been eating very well especially in the last few days although has maintained some oral intake.? She usually avoids salt in her food. Her sodium is noted lower than prior at 121.? Lipase is 6.? AST and ALT with mild elevation 43, 63. CT abdomen pelvis obtained in ER shows 1. Suspect small amount of intraperitoneal hemorrhage on the right side of the pelvis. 2. Pancreatic mass larger than on prior studies. 3. Increasing pancreatic duct dilatation with severe atrophy of the tail of the pancreas. 4. Small pericholecystic fluid collection of uncertain significance. 5. Biliary drainage catheter as described. Noted fairly large amount of feces in the right colon. She is not sure if there may have been a small amount of blood in the biliary drainage bag, although there is none currently. They report also that the lidocaine patch was going to be prescribed for her when they discussed regarding pain at the right upper quadrant with team at [facility], as it was considered pain was produced with intercostal nerve compression.? Hospital Course Hospital Course Patient went to get a CT scan as an outpatient but because there was a power outage she was unable to get it. Subsequently her pain worsened and therefore she became concerned and presented to the ER after she had an episode of nausea and vomiting. Once she got to the ER with pain medication her pain did improve. She was also severely constipated for which she was given an enema during hospital stay she was able to have a bowel movement after that. She does have a cholecystostomy tube and there has been no issue with drainage. She is supposed to follow-up with Dr. Lopez at [facility] on 01/08 at 9 AM for a scheduled appointment. During hospital stay she was seen by general surgery as well and no intervention was recommended at this time. There was concern of a small hematoma seen on CT abdomen but no acute bleeding. Patient hemodynamically remained stable. No indication to reimage at this time. She did get Dulcolax suppository MiraLAX. Also during this hospital stay patient was found to be severely hyponatremic. There was a mixed picture of prerenal syndrome versus SIADH. She did get IV fluids in the ER. Chronicity unknown. About a week ago prior to hospital stay sodium was 131. Nephrology was consulted. Patient was fluid restricted and placed on salt tablets eventually after investigation. Her sodium has been stable and she has been asked to follow-up with her primary care doctor. She has been given a prescription to recheck her labs this upcoming Saturday. All questions answered. Patient will be discharged home in stable condition. She has repeatedly requested to go home. I discussed with nephrology and they are okay with her leaving as long as she gets her labs rechecked and follows up with her physicians outpatient. Patient demonstrate understanding. Also upon her request we will provide her with a disc of her CAT scan done in the ER along with her latest labs today. Physical Exam Narrative: General: Alert oriented x3, patient seen sitting up in bed appearing comfortable at this time. HEENT: Normocephalic, atraumatic, EOMI, breathing normally on room air Cardio: Regular rate rhythm, normal S1-S2, Mediport present over right upper chest area. Respiratory: Good bilateral air entry, no wheezes no rhonchi appreciated GI: Abdomen soft, nontender, nondistended, bowel sounds +, drain present in right upper quadrant. Clear brown-green liquid present in bag. Draining freely. Behavior: Appropriate and cooperative Extremities: No lower extremity edema., no cyanosis present at bedside. Discharge Data Studies Completed and Pending Completed Studies During Hospitalization Category Date Time Status CT abdomen pelvis w con* [id number] Urgent Cat Scan 01/05/22 22:54 Completed Pending at discharge Category Date Time Status Complete Blood Count w/Auto AM LABS Lab 01/08/22 04:00 Ordered Complete Blood Count w/Auto AM LABS Lab 01/09/22 04:00 Ordered Comprehensive Metabolic Panel AM LABS Lab 01/08/22 04:00 Ordered Comprehensive Metabolic Panel AM LABS Lab 01/09/22 04:00 Ordered Comprehensive Metabolic Panel Q6HR Lab 01/07/22 18:00 Ordered Comprehensive Metabolic Panel Q6HR Lab 01/08/22 00:00 Ordered Comprehensive Metabolic Panel Q6HR Lab 01/08/22 06:00 Ordered Comprehensive Metabolic Panel Q6HR Lab 01/08/22 12:00 Ordered Magnesium AM LABS Lab 01/08/22 04:00 Ordered Magnesium AM LABS Lab 01/09/22 04:00 Ordered Osmolality Urine Routine Lab 01/06/22 08:00 Received Radiology Impressions Abdomen/Pelvis CT 01/05/22 22:54 IMPRESSION: 1. Suspect small amount of intraperitoneal hemorrhage on the right side of the pelvis. 2. Pancreatic mass larger than on prior studies. 3. Increasing pancreatic duct dilatation with severe atrophy of the tail of the pancreas. 4. Small pericholecystic fluid collection of uncertain significance. 5. Biliary drainage catheter as described. COMMENTS: Consistent with the [employer]'s Incidental Findings Committee white paper (J Am Lashell Radiol 2018): Any incidental renal lesion less than 1 cm or classified as too small to characterize, or any incidental cystic renal lesion characterized as simple-appearing, is likely benign. No follow-up imaging is recommended for these lesions per consensus recommendations based on imaging criteria. ADDENDUM: 01/06/22 0104 Addendum: THIS REPORT CONTAINS FINDINGS THAT MAY BE CRITICAL TO PATIENT CARE. The findings were verbally communicated via telephone conference with BRANNON MEIJA at 1:01 AM CDT on 01/06/2022. The findings were acknowledged and understood. Laboratory Results WBC 5.4 10^3/uL (4.0-10.0) 01/07/22 03:40 RBC 3.50 10^6/uL (4.1-5.3) L 01/07/22 03:40 Hgb 10.7 g/dL (11.5-15.3) L 01/07/22 03:40 Hct 30.2 % (37.0-47.0) L 01/07/22 03:40 MCV 86.3 fl (81-99) 01/07/22 03:40 MCH 30.6 pg (28.0-34.0) 01/07/22 03:40 MCHC 35.4 g/dL (30.0-36.0) 01/07/22 03:40 RDW 13.6 % (12.1-15.1) 01/07/22 03:40 Plt Count 204 10^3/cmm (130-400) 01/07/22 03:40 MPV 11.2 fL (7.4-10.4) H 01/07/22 03:40 Neut % (Auto) 64.6 % 01/07/22 03:40 Lymph % (Auto) 23.5 % 01/07/22 03:40 Gordon % (Auto) 7.8 % 01/07/22 03:40 Eos % (Auto) 3.3 % 01/07/22 03:40 Baso % (Auto) 0.6 % 01/07/22 03:40 Neut # (Auto) 3.50 10^3/uL (1.8-7.7) 01/07/22 03:40 Lymph # (Auto) 1.3 10^3/uL (0.8-4.8) 01/07/22 03:40 Gordon # (Auto) 0.4 10^3/uL (0.2-0.9) 01/07/22 03:40 Eos # (Auto) 0.2 10^3/uL (0.0-0.8) 01/07/22 03:40 Baso # (Auto) 0.0 10^3/uL (0.0-0.1) 01/07/22 03:40 Nucleated RBC % (auto) 0 % 01/07/22 03:40 Nucleated RBCs # 0.0 /100WBC 01/07/22 03:40 Sodium 128 mmol/L (136-145) L 01/07/22 11:56 Potassium 4.0 mmol/L (3.5-5.1) 01/07/22 11:56 Chloride 93 mmol/L (98-107) L 01/07/22 11:56 Carbon Dioxide 24 mmol/L (22-29) 01/07/22 11:56 Anion Gap 15.0 (5-19) 01/07/22 11:56 BUN 17 mg/dL (8-23) 01/07/22 11:56 Creatinine 0.6 mg/dL (0.5-0.9) 01/07/22 11:56 GFR Calculation 101.3 mL/min (90-130) 01/07/22 11:56 Glucose 172 mg/dL (65-115) H 01/07/22 11:56 Calculated Osmolality 272 mOsm/kg (285-295) L 01/07/22 11:56 Calcium 9.2 mg/dL (8.5-10.5) 01/07/22 11:56 Magnesium 2.2 mg/dL (1.7-2.3) 01/07/22 03:40 Total Bilirubin 1.6 mg/dL (0.15-1.2) H 01/07/22 11:56 AST 41 U/L (0-32) H 01/07/22 11:56 ALT 64 U/L (0-33) H 01/07/22 11:56 Alkaline Phosphatase 281 IU/L (35-105) H 01/07/22 11:56 Total Protein 7.3 g/dL (6.6-8.7) 01/07/22 11:56 Albumin 4.2 g/dL (3.5-5.2) 01/07/22 11:56 Globulin 3.1 g/dL (1.3-4.6) 01/07/22 11:56 Lipase 6 U/L (13-60) L 01/05/22 23:23 TSH 1.62 uIU/mL (0.27-4.20) 01/06/22 03:30 Ur Random Sodium < 10 mmol/L 01/06/22 08:00 Vitals Last Vital Signs Temp 97.4 F L 01/07/22 12:00 Pulse 78 01/07/22 12:00 Resp 13 01/07/22 12:00 BP 113/72 01/07/22 12:00 Pulse Ox 99 01/07/22 12:00 Discharge Plan Discharge Patient Disposition: Home Condition: Stable Prescriptions: New lidocaine 5 % Adhesive Patch,Medicated 1 patch topical [id number] 5 Days Qty: 3 0RF sodium chloride 1 gram Tablet 1 g PO BID 14 Days Qty: 28 0RF Continued Creon 36,000-114,000- 180,000 unit capsule,delayed release(DR/EC) 1 cap PO TID 0RF Rx Instructions: take 15 min before meals famotidine 20 mg tablet 20 mg PO DAILY 0RF Held potassium chloride 10 mEq capsule, extended release 10 meq PO DAILY Qty: 30 3RF Hold Instructions: See PCP lisinopril 20 mg tablet 20 mg PO DAILY 0RF Hold Instructions: See PCP before resuming. BP has been stable without it. Label Comments: Patient states she has not taken in a while because her BP has been too low Discharge Orders: Discharge Order (Routine); Ordered 01/07/22 Ordered By: Elly Hudson Other Ambulatory Orders: Basic Metabolic Panel (Routine) Timeframe: [id number] Facility: [facility] - Location: Lab - Main Lab Ordered By: Elly Hudson Referrals: Kristina Orellana PA [Primary Care Provider] - 4-7 days Discharge Diet: Regular Discharge Activity: Resume usual activity and Increase activity as tolerated Patient Instructions: Opioid Safety Activity Restrictions/Additional Instructions: Please follow up at [facility] with Dr. Lopez tomorrow at 9 AM as previously scheduled. Please follow up with PCP within 4-7 days of discharge. Please get your labs rechecked as discussed. Please continue fluid intake restriction as instructed by repairer veneer sheet. Discharge Attestations Time Spent in Discharge Care*: greater than 30 min Quality Metrics Clinical Quality Measures [ No reported AMI, CVA or VTE this stay] Coding Level of Care Code Acute g FW IN note Diagnoses Hyponatremia E87.1
[2022-01-07 14:47] VITALS: BP 113/72; PULSE 78; RESP 13; TEMP 36.3; O2SAT 99
[2022-01-08 16:34] LABS: Osmolality Urine 589 mOsm/kg (50-1200)
== END 2022-01-07 14:49 | disposition home or self-care (01) | DRG 643 ==
LOC: ER 01-06 02:06 → MEDSURG 01-06 02:08
PROVIDERS: Internal Medicine; Internal Medicine Nephrology; Surgery; Admitting Provider Internal Medicine; Emergency Provider Emergency Medicine; PCP Physician Assistant; Visit Provider Internal Medicine
DX: E22.2 Syndrome of inappropriate secretion of antidiuretic hormone (principal); K66.1 Hemoperitoneum; C25.0 Malignant neoplasm of head of pancreas; R10.11 Right upper quadrant pain; E80.6 Other disorders of bilirubin metabolism; K59.00 Constipation, unspecified; K21.9 Gastro-esophageal reflux disease without esophagitis; I10 Essential (primary) hypertension; Z92.21 Personal history of antineoplastic chemotherapy; Z98.890 Other specified postprocedural states; Z96.89 Presence of other specified functional implants; Z87.891 Personal history of nicotine dependence; Z90.710 Acquired absence of both cervix and uterus; Z43.4 Encounter for attention to other artificial openings of digestive tract
CPT/HCPCS: 36415; 36591; 74177; 80048; 80053; 83690; 83735; 83935; 84295; 84300; 84443; 85014; 85018; 85025; 96361; 96374; 96375; 99285; C9113; J1170; J1940; J2405; J7030; Q3014; Q9967

== ENCOUNTER 2022-01-12 08:30 | Oncology outpatient (recurring) (ONCR) | payer BC, MEDICAID, SELFPAY ==
[2021-12-28 11:46] LABS: Alanine Aminotransferase 70 U/L (0-33); Albumin Level 4.1 g/dL (3.5-5.2); Alkaline Phosphatase 569 IU/L (35-105); Amylase 40 U/L (28-100); Anion Gap 14.7 (5-19); Aspartate Amino Transferase 36 U/L (0-32); Blood Urea Nitrogen 12 mg/dL (8-23); Calcium 9.2 mg/dL (8.5-10.5); Carbon Dioxide 26 mmol/L (22-29); Chloride 94 mmol/L (98-107); Globulin 3.4 g/dL (1.3-4.6); Glomerular Filtration Rate 101.3 mL/min (90-130); Glucose 215 mg/dL (65-115); Osmolality Calculated 278 mOsm/kg (285-295); Potassium 3.7 mmol/L (3.5-5.1); Sodium 131 mmol/L (136-145); Total Bilirubin 2.7 mg/dL (0.15-1.2); Total Protein 7.5 g/dL (6.6-8.7)
[2022-01-12 09:49] LABS: Basophils % 0.7 %; Eosinophils # 0.2 10^3/uL (0.0-0.8); Eosinophils % 4.4 %; Hematocrit 27.3 % (37.0-47.0); Hemoglobin 9.8 g/dL (11.5-15.3); Lymphocytes # 1.3 10^3/uL (0.8-4.8); Lymphocytes % 27.5 %; Mean Corpuscular HGB Conc 35.9 g/dL (30.0-36.0); Mean Corpuscular Volume 86.4 fl (81-99); Mean Platelet Volume 10.4 fL (7.4-10.4); Monocytes # 0.3 10^3/uL (0.2-0.9); Monocytes % 6.2 %; Neutrophils # 2.78 10^3/uL (1.8-7.7); Nucleated Red Blood Cells % 0 %; Platelet Count 181 10^3/cmm (130-400); Red Blood Count 3.16 10^6/uL (4.1-5.3); Red Cell Distribution Width 14.1 % (12.1-15.1); White Blood Count 4.6 10^3/uL (4.0-10.0)
[2022-01-12 10:19] LABS: Alanine Aminotransferase 33 U/L (0-33); Albumin Level 3.9 g/dL (3.5-5.2); Alkaline Phosphatase 201 IU/L (35-105); Anion Gap 14.4 (5-19); Aspartate Amino Transferase 23 U/L (0-32); Blood Urea Nitrogen 13 mg/dL (8-23); Calcium 8.9 mg/dL (8.5-10.5); Carbon Dioxide 25 mmol/L (22-29); Chloride 103 mmol/L (98-107); Globulin 2.6 g/dL (1.3-4.6); Glucose 177 mg/dL (65-115); Osmolality Calculated 292 mOsm/kg (285-295); Potassium 3.4 mmol/L (3.5-5.1); Sodium 139 mmol/L (136-145); Total Bilirubin 1.3 mg/dL (0.15-1.2); Total Protein 6.5 g/dL (6.6-8.7)
== END 2022-01-14 23:59 | disposition home or self-care (01) ==
PROVIDERS: Surgery; PCP Physician Assistant; Visit Provider Internal Medicine Medical Oncology
DX: C25.0 Malignant neoplasm of head of pancreas (principal)
CPT/HCPCS: 36591; 80053; 82150; 85025

== ENCOUNTER 2022-02-09 09:42 | Oncology outpatient (recurring) (ONCR) | payer BC, MEDICAID, SELFPAY ==
[2022-02-09 11:09] LABS: Basophils % 0.4 %; Eosinophils # 0.2 10^3/uL (0.0-0.8); Eosinophils % 2.3 %; Hematocrit 31.4 % (37.0-47.0); Hemoglobin 10.3 g/dL (11.5-15.3); Lymphocytes # 1.1 10^3/uL (0.8-4.8); Lymphocytes % 15.4 %; Mean Corpuscular HGB Conc 32.8 g/dL (30.0-36.0); Mean Corpuscular Volume 91.5 fl (81-99); Mean Platelet Volume 9.8 fL (7.4-10.4); Monocytes # 0.4 10^3/uL (0.2-0.9); Neutrophils # 5.56 10^3/uL (1.8-7.7); Neutrophils % 75.6 %; Nucleated Red Blood Cells % 0 %; Platelet Count 263 10^3/cmm (130-400); Red Blood Count 3.43 10^6/uL (4.1-5.3); Red Cell Distribution Width 14.5 % (12.1-15.1); White Blood Count 7.4 10^3/uL (4.0-10.0)
[2022-02-09 11:40] LABS: Carcinoembryonic Antigen 2.2 ng/mL (0.0-4.7)
[2022-02-09 11:50] LABS: Alanine Aminotransferase 14 U/L (0-33); Albumin Level 3.7 g/dL (3.5-5.2); Alkaline Phosphatase 103 U/L (35-105); Anion Gap 14.5 (5-19); Aspartate Amino Transferase 12 U/L (0-32); Blood Urea Nitrogen 9 mg/dL (8-23); Carbon Dioxide 27 mmol/L (22-29); Chloride 96 mmol/L (98-107); Glomerular Filtration Rate 161.7 mL/min (90-130); Glucose 113 mg/dL (65-115); Osmolality Calculated 277 mOsm/kg (285-295); Potassium 3.5 mmol/L (3.5-5.1); Sodium 134 mmol/L (136-145); Total Bilirubin 0.7 mg/dL (0.15-1.2); Total Protein 6.7 g/dL (6.6-8.7)
[2022-02-09 12:50] LABS: Cancer Antigen 19 9 1010 U/mL (0-35)
== END 2022-02-14 23:59 | disposition home or self-care (01) ==
PROVIDERS: PCP Physician Assistant; Visit Provider Internal Medicine Medical Oncology
DX: C25.0 Malignant neoplasm of head of pancreas (principal)
CPT/HCPCS: 36591; 80053; 82378; 85025; 86301; 99214

== ENCOUNTER 2022-04-18 16:04 | Oncology outpatient (recurring) (ONCR) | payer BC, MEDICAID, SELFPAY | END 2022-05-16 23:59 | disposition home or self-care (01) | PROVIDERS: PCP Physician Assistant; Visit Provider Internal Medicine Medical Oncology | DX: Z45.2 Encounter for adjustment and management of vascular access device (principal) | CPT/HCPCS: 96523 ==

== ENCOUNTER 2022-04-30 11:19 | Emergency (ER) | payer BC, MEDICAID, SELFPAY ==
[2022-04-30 13:18] VITALS: BP 145/99; PULSE 92; RESP 16; TEMP 36.4; O2SAT 95; BMI 18.9
[2022-04-30 13:58] LABS: Basophils % 0.3 %; Eosinophils % 0.2 %; Hematocrit 38.6 % (37.0-47.0); Lymphocytes # 0.3 10^3/uL (0.8-4.8); Lymphocytes % 5.4 %; Mean Corpuscular HGB Conc 33.7 g/dL (30.0-36.0); Mean Corpuscular Hemoglobin 30.2 pg (28.0-34.0); Mean Corpuscular Volume 89.6 fl (81-99); Mean Platelet Volume 9.8 fL (7.4-10.4); Monocytes # 0.3 10^3/uL (0.2-0.9); Monocytes % 5.9 %; Neutrophils # 5.08 10^3/uL (1.8-7.7); Neutrophils % 87.9 %; Nucleated Red Blood Cells % 0 %; Platelet Count 178 10^3/cmm (130-400); Red Blood Count 4.31 10^6/uL (4.1-5.3); Red Cell Distribution Width 13.4 % (12.1-15.1); White Blood Count 5.8 10^3/uL (4.0-10.0)
[2022-04-30 14:24] LABS: Alanine Aminotransferase 27 U/L (0-33); Albumin Level 3.7 g/dL (3.5-5.2); Alkaline Phosphatase 76 U/L (35-105); Anion Gap 15.3 (5-19); Aspartate Amino Transferase 22 U/L (0-32); Blood Urea Nitrogen 10 mg/dL (8-23); Calcium 9.4 mg/dL (8.5-10.5); Carbon Dioxide 27 mmol/L (22-29); Chloride 97 mmol/L (98-107); Globulin 2.9 g/dL (1.3-4.6); Glomerular Filtration Rate 101.3 mL/min (90-130); Glucose 145 mg/dL (65-115); Lipase 4 U/L (13-60); Osmolality Calculated 284 mOsm/kg (285-295); Potassium 3.3 mmol/L (3.5-5.1); Sodium 136 mmol/L (136-145); Total Bilirubin 0.7 mg/dL (0.15-1.2); Total Protein 6.6 g/dL (6.6-8.7)
[2022-04-30 14:33] LABS: Cancer Antigen 19 9 411.9 U/mL (0-35)
== END 2022-04-30 16:47 | disposition left against medical advice (07) ==
PROVIDERS: Emergency Medicine; Emergency Provider Family Medicine; PCP Physician Assistant
DX: Z53.21 Procedure and treatment not carried out due to patient leaving prior to being seen by health care provider (principal)
CPT/HCPCS: 36415; 80053; 83690; 85025; 86301

== ENCOUNTER 2022-06-15 09:31 | Oncology outpatient (recurring) (ONCR) | payer BC, MEDICAID, SELFPAY | END 2022-06-16 23:59 | disposition home or self-care (01) | LOC: ONCMED 09:31 | PROVIDERS: PCP Physician Assistant; Visit Provider Internal Medicine Medical Oncology | DX: Z45.2 Encounter for adjustment and management of vascular access device (principal); Z95.828 Presence of other vascular implants and grafts | CPT/HCPCS: 96523 ==

== ENCOUNTER 2022-08-01 11:31 | Oncology outpatient (recurring) (ONCR) | payer BC, MEDICAID, SELFPAY ==
[2022-08-01 12:12] LABS: Basophils % 0.6 %; Eosinophils # 0.1 10^3/uL (0.0-0.8); Eosinophils % 2.6 %; Hematocrit 29.1 % (37.0-47.0); Hemoglobin 9.9 g/dL (11.5-15.3); Lymphocytes # 0.5 10^3/uL (0.8-4.8); Lymphocytes % 12.9 %; Mean Corpuscular Hemoglobin 31.7 pg (28.0-34.0); Mean Corpuscular Volume 93.3 fl (81-99); Mean Platelet Volume 9.7 fL (7.4-10.4); Monocytes # 0.3 10^3/uL (0.2-0.9); Monocytes % 7.4 %; Neutrophils # 2.66 10^3/uL (1.8-7.7); Neutrophils % 76.2 %; Nucleated Red Blood Cells % 0 %; Platelet Count 140 10^3/cmm (130-400); Red Blood Count 3.12 10^6/uL (4.1-5.3); Red Cell Distribution Width 12.3 % (12.1-15.1); White Blood Count 3.5 10^3/uL (4.0-10.0)
[2022-08-01 12:38] LABS: Alanine Aminotransferase 53 U/L (0-33); Albumin Level 3.5 g/dL (3.5-5.2); Alkaline Phosphatase 91 U/L (35-105); Aspartate Amino Transferase 51 U/L (0-32); Blood Urea Nitrogen 8 mg/dL (8-23); Calcium 8.3 mg/dL (8.5-10.5); Carbon Dioxide 28 mmol/L (22-29); Chloride 102 mmol/L (98-107); Glomerular Filtration Rate 101.3 mL/min (90-130); Glucose 187 mg/dL (65-115); Osmolality Calculated 287 mOsm/kg (285-295); Sodium 137 mmol/L (136-145); Total Bilirubin 0.4 mg/dL (0.15-1.2); Total Protein 5.5 g/dL (6.6-8.7)
[2022-08-01 12:59] LABS: Cancer Antigen 19 9 993.6 U/mL (0-35)
[2022-08-01 13:13] LABS: Carcinoembryonic Antigen 7.4 ng/mL (0.0-4.7)
== END 2022-08-14 23:59 | disposition home or self-care (01) ==
LOC: ONCMED 11:32
PROVIDERS: PCP Physician Assistant; Visit Provider Internal Medicine Medical Oncology
DX: C25.0 Malignant neoplasm of head of pancreas (principal); Z45.2 Encounter for adjustment and management of vascular access device; Z95.828 Presence of other vascular implants and grafts
CPT/HCPCS: 80053; 82378; 85025; 86301

== ENCOUNTER 2022-08-25 05:57 | Outpatient (CLI) | payer BC, MEDICAID, SELFPAY ==
--- NOTE | 2022-08-25 08:00 | PETR_ITS ---
PROCEDURE INFORMATION: Exam: PET/CT Skull Base to Mid-thigh Exam date and time: 08/25/2022 8:54 AM Age: 61 years old Clinical indication: Condition or disease; Primary cancer: Malignant neoplasm of head of pancreas; Follow-up oncological assessment; Prior surgery; Patient HX: Hyst, bladder; Additional info: Restaging LABS AND CLINICAL REPORTS: Glucose: 153 mg/dl Treatment strategy for malignancy (PET staging): Restaging (PS) TECHNIQUE: Imaging protocol: Following at least four-hour fasting and following the injection of F-18-FDG, low dose CT images were obtained. Then, PET images were obtained. Attenuation corrected images were constructed using the CT scan. Fused images of PET and CT were reviewed. The standardized uptake values (SUV) reported below are maximum values within a region of interest, expressed in gm/ml. Exam includes orbital meatal line to mid-thigh. Radiopharmaceutical: 12.78 mCi F-18 FDG (Fluorodeoxyglucose), IV. Time of imaging post radiopharmaceutical administration: 1 hour Injection site: Left antecubital COMPARISON: CT abdomen pelvis w con* [id number] 01/30/2022 11:44 AM FINDINGS: Tubes, catheters and devices: A right internal jugular central venous port catheter terminates in the distal SVC. There are numerous surgical clips in the mesenteric fat. Brain: Visualized brain has normal physiologic uptake. Pharynx: No abnormal uptake. Larynx: No abnormal uptake. Lungs, pleura and trachea: Small new left pleural effusion. Mild dependent streaky density in the lungs is consistent with atelectasis. Heart: Normal physiologic uptake. Mediastinal space: No abnormal uptake. Liver: No abnormal uptake. Gallbladder and bile ducts: Cholecystectomy clips are present. Pancreas: Abnormal uptake in the region of the pancreatic tail is noted in a region of new soft tissue density measuring 1.8 x 2.2 cm on series 3, image 81, SUV max 4.6. Similar marked dilatation of the pancreatic duct. Abnormal uptake in the pancreatic head is identified, SUV max 7.3 where there is masslike soft tissue density measuring approximately 3.2 cm in diameter on series 3, image 97. Spleen: No abnormal uptake. Adrenal glands: No abnormal uptake. Kidneys and ureters: Uptake along the left pelvic sidewall is likely related to physiologic excretion of radiotracer in the left ureter on series 4, image 126. Stomach and bowel: There is abnormal uptake between the 2nd portion of the duodenum in the pancreatic head which appears to be within the duodenal wall on series 3, image 88, SUV max 5.0. There are areas of tortuosity and wall thickening involving the sigmoid colon which demonstrate elevated uptake between series 3, image 129 and 138, SUV max 7.5. Moderate stool in the left colon is noted to the level of the sigmoid colon. Moderate rectal stool. Radiodense postoperative changes in the mid stomach are noted on series 3, image 86. Reproductive: There is a non radiotracer avid ovoid simple fluid density left adnexal cyst measuring 3.8 x 2.4 cm on series 3, image 132 which appears new since the prior CT. Vasculature: No abnormal uptake. There are diffuse atherosclerotic changes. Lymph nodes: No abnormal uptake. No lymphadenopathy in the head, neck, chest, abdomen, pelvis, and extremities. Bones/joints: No abnormal uptake in the visualized axial and appendicular skeleton. Soft tissues: Abnormal uptake within regions of abnormal soft tissue nodularity deep to a surgical incision site scar along the anterior mid to upper abdominal wall is noted within a nodule measuring 2.8 x 1.5 cm on series 3, image 93, SUV max 5.7 and measuring 1.6 cm in diameter on series 3, image 98, SUV max 7.3. An additional soft tissue density nodule is noted along the inferior medial right lower lobe measuring 1.3 cm in diameter on series 3, image 90, SUV max 5.1. METRICS: Mediastinal blood pool: SUV max 1.9 PET[facility] SUBSEQ [id number] IMPRESSION: 1. Abnormal uptake is noted in the region of the known pancreatic head mass (SUV max 7.3) compatible with malignancy. There is new uptake in a new appearing soft tissue density lesion adjacent to or arising from the pancreatic tail (SUV max 4.6) concerning for malignancy. 2. Abnormal uptake between the 2nd portion of the duodenum in the pancreatic head which may be within the duodenal wall is noted concerning for malignancy. 3. There are new radiotracer avid soft tissue density nodules along the medial border of the inferior right liver lobe and deep to the abdominal rectus sheath in the region of previous surgery concerning for malignancy. 4. Elevated uptake is noted within a decompressed segment of sigmoid colon. This uptake may be physiologic however wall thickening in this region cannot be entirely excluded and uptake related to inflammatory or infectious colitis or neoplastic involvement cannot be excluded. 5. Non radiotracer avid simple appearing left adnexal cystic structure compatible with a benign finding. 6. New small left pleural effusion. 7. Additional nonurgent findings as detailed above.
== END 2022-08-25 05:58 | disposition home or self-care (01) ==
LOC: RAD 08-27 05:58
PROVIDERS: PCP Physician Assistant; Visit Provider Internal Medicine Medical Oncology
DX: C25.0 Malignant neoplasm of head of pancreas (principal); J90 Pleural effusion, not elsewhere classified
CPT/HCPCS: 78815; A9552

== ENCOUNTER 2022-09-20 13:34 | Oncology outpatient (recurring) (ONCR) | payer BC, MEDICAID, SELFPAY ==
[2022-09-20 14:35] LABS: Basophils % 0.9 %; Eosinophils # 0.1 10^3/uL (0.0-0.8); Eosinophils % 3.3 %; Hematocrit 29.2 % (37.0-47.0); Hemoglobin 10.2 g/dL (11.5-15.3); Lymphocytes # 0.5 10^3/uL (0.8-4.8); Lymphocytes % 15.4 %; Mean Corpuscular HGB Conc 34.9 g/dL (30.0-36.0); Mean Corpuscular Hemoglobin 30.9 pg (28.0-34.0); Mean Corpuscular Volume 88.5 fl (81-99); Mean Platelet Volume 9.5 fL (7.4-10.4); Monocytes # 0.3 10^3/uL (0.2-0.9); Monocytes % 9.5 %; Neutrophils # 2.39 10^3/uL (1.8-7.7); Neutrophils % 70.6 %; Nucleated Red Blood Cells % 0 %; Platelet Count 130 10^3/cmm (130-400); White Blood Count 3.4 10^3/uL (4.0-10.0)
[2022-09-20 15:01] LABS: Carcinoembryonic Antigen 5.8 ng/mL (0.0-4.7)
[2022-09-20 15:12] LABS: Alanine Aminotransferase 19 U/L (0-33); Albumin Level 3.8 g/dL (3.5-5.2); Alkaline Phosphatase 77 U/L (35-105); Anion Gap 14.2 (5-19); Aspartate Amino Transferase 22 U/L (0-32); Blood Urea Nitrogen 7 mg/dL (8-23); Calcium 8.6 mg/dL (8.5-10.5); Carbon Dioxide 26 mmol/L (22-29); Chloride 96 mmol/L (98-107); Globulin 2.9 g/dL (1.3-4.6); Glomerular Filtration Rate 124.6 mL/min (90-130); Glucose 209 mg/dL (65-115); Osmolality Calculated 280 mOsm/kg (285-295); Potassium 3.2 mmol/L (3.5-5.1); Sodium 133 mmol/L (136-145); Total Bilirubin 0.5 mg/dL (0.15-1.2); Total Protein 6.7 g/dL (6.6-8.7)
[2022-09-20 17:50] LABS: Cancer Antigen 19 9 4958 U/mL (0-35)
== END 2022-10-14 23:59 | disposition home or self-care (01) ==
LOC: ONCMED 13:35
PROVIDERS: PCP Physician Assistant; Visit Provider Internal Medicine Medical Oncology
DX: C25.0 Malignant neoplasm of head of pancreas (principal)
CPT/HCPCS: 36591; 80053; 82378; 85025; 86301

== ENCOUNTER 2022-11-13 10:06 | Oncology outpatient (recurring) (ONCR) | payer BC, MEDICAID, SELFPAY ==
[2022-10-25 09:57] LABS: Basophils % 0.7 %; Eosinophils % 1.4 %; Hematocrit 26.7 % (37.0-47.0); Hemoglobin 8.9 g/dL (11.5-15.3); Lymphocytes # 0.2 10^3/uL (0.8-4.8); Lymphocytes % 10.4 %; Mean Corpuscular HGB Conc 33.3 g/dL (30.0-36.0); Mean Corpuscular Hemoglobin 30.9 pg (28.0-34.0); Mean Corpuscular Volume 92.7 fl (81-99); Mean Platelet Volume 10.2 fL (7.4-10.4); Monocytes # 0.1 10^3/uL (0.2-0.9); Monocytes % 8.3 %; Neutrophils # 1.13 10^3/uL (1.8-7.7); Neutrophils % 78.5 %; Nucleated Red Blood Cells % 0 %; Platelet Count 79 10^3/cmm (130-400); Red Blood Count 2.88 10^6/uL (4.1-5.3); Red Cell Distribution Width 12.4 % (12.1-15.1); White Blood Count 1.4 10^3/uL (4.0-10.0)
[2022-10-25 10:17] LABS: Alanine Aminotransferase 33 U/L (0-33); Albumin Level 3.2 g/dL (3.5-5.2); Alkaline Phosphatase 91 U/L (35-105); Anion Gap 9.4 (5-19); Aspartate Amino Transferase 30 U/L (0-32); Blood Urea Nitrogen 24 mg/dL (8-23); Calcium 7.5 mg/dL (8.5-10.5); Carbon Dioxide 25 mmol/L (22-29); Chloride 101 mmol/L (98-107); Globulin 2.2 g/dL (1.3-4.6); Glomerular Filtration Rate 161.2 mL/min (90-130); Glucose 177 mg/dL (65-115); Osmolality Calculated 280 mOsm/kg (285-295); Potassium 4.4 mmol/L (3.5-5.1); Sodium 131 mmol/L (136-145); Total Bilirubin 0.4 mg/dL (0.15-1.2); Total Protein 5.4 g/dL (6.6-8.7)
[2022-10-30 11:14] LABS: Basophils % 0.9 %; Eosinophils % 3.8 %; Hematocrit 25.6 % (37.0-47.0); Hemoglobin 8.5 g/dL (11.5-15.3); Lymphocytes # 0.4 10^3/uL (0.8-4.8); Lymphocytes % 39.6 %; Mean Corpuscular HGB Conc 33.2 g/dL (30.0-36.0); Mean Corpuscular Hemoglobin 30.5 pg (28.0-34.0); Mean Corpuscular Volume 91.8 fl (81-99); Mean Platelet Volume 9.8 fL (7.4-10.4); Monocytes # 0.1 10^3/uL (0.2-0.9); Monocytes % 11.3 %; Neutrophils % 44.4 %; Nucleated Red Blood Cells % 0 %; Platelet Count 111 10^3/cmm (130-400); Red Blood Count 2.79 10^6/uL (4.1-5.3); Red Cell Distribution Width 13.2 % (12.1-15.1); White Blood Count 1.1 10^3/uL (4.0-10.0)
[2022-10-30 11:31] LABS: Add RBC Morph Yes; RBC Morph Comp No; Slide Review Slide Review Perform
[2022-10-30 11:32] LABS: Anisocytosis 1+; Hypochromasia 2+; Polychromasia 1+
[2022-10-30 11:34] LABS: Neutrophils # 0.47 10^3/uL (1.8-7.7)
[2022-10-30 11:40] LABS: Alanine Aminotransferase 21 U/L (0-33); Alkaline Phosphatase 94 U/L (35-105); Anion Gap 12.6 (5-19); Aspartate Amino Transferase 14 U/L (0-32); Blood Urea Nitrogen 23 mg/dL (8-23); Calcium 7.5 mg/dL (8.5-10.5); Carbon Dioxide 22 mmol/L (22-29); Chloride 106 mmol/L (98-107); Globulin 2.2 g/dL (1.3-4.6); Glomerular Filtration Rate 161.2 mL/min (90-130); Glucose 114 mg/dL (65-115); Magnesium 2.2 mg/dL (1.7-2.3); Osmolality Calculated 287 mOsm/kg (285-295); Phosphorus 3.3 mg/dL (2.5-4.5); Potassium 4.6 mmol/L (3.5-5.1); Sodium 136 mmol/L (136-145); Total Bilirubin 0.2 mg/dL (0.15-1.2); Total Protein 5.2 g/dL (6.6-8.7); Triglycerides 57 mg/dL (0-150)
--- NOTE | 2022-10-30 12:56 | PC.NURSE ---
PICC line dressing change completed via sterile technique. Pt tolerated well. No redness or irritation noted. KISHA
[2022-11-06 11:30] VITALS: BP 114/78; PULSE 67; RESP 17; TEMP 36.7; O2SAT 98
[2022-11-06 12:08] LABS: Hematocrit 26.2 % (37.0-47.0); Hemoglobin 8.3 g/dL (11.5-15.3); Mean Corpuscular HGB Conc 31.7 g/dL (30.0-36.0); Mean Corpuscular Hemoglobin 29.5 pg (28.0-34.0); Mean Corpuscular Volume 93.2 fl (81-99); Mean Platelet Volume 9.4 fL (7.4-10.4); Platelet Count 196 10^3/cmm (130-400); Red Blood Count 2.81 10^6/uL (4.1-5.3); Red Cell Distribution Width 13.8 % (12.1-15.1); White Blood Count 1.9 10^3/uL (4.0-10.0)
[2022-11-06 12:45] LABS: Alanine Aminotransferase 12 U/L (0-33); Albumin Level 2.9 g/dL (3.5-5.2); Alkaline Phosphatase 92 U/L (35-105); Anion Gap 11.4 (5-19); Aspartate Amino Transferase 14 U/L (0-32); Blood Urea Nitrogen 23 mg/dL (8-23); Calcium 8.1 mg/dL (8.5-10.5); Carbon Dioxide 26 mmol/L (22-29); Chloride 100 mmol/L (98-107); Globulin 2.7 g/dL (1.3-4.6); Glomerular Filtration Rate 161.2 mL/min (90-130); Glucose 108 mg/dL (65-115); Magnesium 2.2 mg/dL (1.7-2.3); Osmolality Calculated 280 mOsm/kg (285-295); Phosphorus 3.4 mg/dL (2.5-4.5); Potassium 4.4 mmol/L (3.5-5.1); Sodium 133 mmol/L (136-145); Total Bilirubin 0.3 mg/dL (0.15-1.2); Total Protein 5.6 g/dL (6.6-8.7); Triglycerides 56 mg/dL (0-150)
[2022-11-06 13:23] LABS: Slide Review Slide Review Perform
[2022-11-06 13:24] LABS: Absolute Segmented Neutrophil 1.2 10/cmm (1.6-7.1); Eosinophils 1 %; Lymphocytes 26 %; Lymphocytes Absolute 0.6 10^3/cmm (1.2-3.4); Monocytes Absolute 0.1 10^3/cmm (0.1-0.6); Segmented Neutrophils 61 %; Total Cells Counted 100 (0-100)
[2022-11-06 13:28] LABS: Absolute Neutrophil 1.2 10^3/cmm (1.4-6.5); Platelet Estimate Decreased (Normal)
[2022-11-08] MEDS: filgrastim-sndz 300 mcg/0.5 mL Syringe SUBCUT (13:32)
[2022-11-09 11:15] VITALS: BP 103/67; PULSE 71; RESP 18; TEMP 37.1; O2SAT 99
[2022-11-09] MEDS: filgrastim-sndz 300 mcg/0.5 mL Syringe SUBCUT (11:34)
[2022-11-13 11:23] LABS: Basophils % 1.2 %; Eosinophils % 0.9 %; Hematocrit 27.2 % (37.0-47.0); Hemoglobin 8.7 g/dL (11.5-15.3); Lymphocytes # 0.5 10^3/uL (0.8-4.8); Lymphocytes % 15.6 %; Mean Corpuscular Hemoglobin 29.9 pg (28.0-34.0); Mean Corpuscular Volume 93.5 fl (81-99); Mean Platelet Volume 9.9 fL (7.4-10.4); Monocytes # 0.4 10^3/uL (0.2-0.9); Monocytes % 11.2 %; Neutrophils # 2.38 10^3/uL (1.8-7.7); Neutrophils % 69.9 %; Nucleated Red Blood Cells % 0 %; Platelet Count 160 10^3/cmm (130-400); Red Blood Count 2.91 10^6/uL (4.1-5.3); Red Cell Distribution Width 14.5 % (12.1-15.1); White Blood Count 3.4 10^3/uL (4.0-10.0)
[2022-11-13 11:42] LABS: Alanine Aminotransferase 13 U/L (0-33); Albumin Level 3.1 g/dL (3.5-5.2); Alkaline Phosphatase 118 U/L (35-105); Anion Gap 10.4 (5-19); Aspartate Amino Transferase 19 U/L (0-32); Blood Urea Nitrogen 23 mg/dL (8-23); Calcium 7.8 mg/dL (8.5-10.5); Carbon Dioxide 27 mmol/L (22-29); Chloride 102 mmol/L (98-107); Globulin 2.7 g/dL (1.3-4.6); Glomerular Filtration Rate 161.2 mL/min (90-130); Glucose 102 mg/dL (65-115); Magnesium 2.2 mg/dL (1.7-2.3); Osmolality Calculated 284 mOsm/kg (285-295); Phosphorus 3.6 mg/dL (2.5-4.5); Potassium 4.4 mmol/L (3.5-5.1); Sodium 135 mmol/L (136-145); Total Bilirubin 0.3 mg/dL (0.15-1.2); Total Protein 5.8 g/dL (6.6-8.7); Triglycerides 56 mg/dL (0-150)
== END 2022-11-14 23:59 | disposition home or self-care (01) ==
PROVIDERS: PCP Physician Assistant; Visit Provider Internal Medicine Medical Oncology
DX: C25.0 Malignant neoplasm of head of pancreas (principal)
CPT/HCPCS: 36592; 80053; 83735; 84100; 84478; 85007; 85025; 96372; Q5101

== ENCOUNTER 2022-11-20 05:49 | Emergency (ER) | payer BC, MEDICAID, SELFPAY ==
[2022-11-20 06:05] VITALS: BMI 19.4
[2022-11-20 06:09] VITALS: BP 135/96; PULSE 82; RESP 16; TEMP 36.5; O2SAT 99
--- NOTE | 2022-11-20 06:21 | ED_ITS ---
HPI - Nausea/Vomiting/Diarrhea General: Chief complaint: Nausea/Vomiting/Diarrhea Stated complaint: ABD Pain Time Seen by Provider: 11/20/22 05:51 Source: patient Mode of arrival: ambulatory History of Present Illness: 62-year-old female with metastatic pancreatic cancer she is receiving some palliative treatment she has a PEG tube in place and drains to the stomach she has a PICC line for parenteral nutrition. She is complaining of pain she feels like she is getting reflux she has not taken anything more than Tylenol at home. She is trying some new treatments and live with her last one was late last week. She denies any fever sweats or chills MD elicited complaint: nausea and vomiting Onset (ago): day(s) (3) Associated nausea: Yes Associated abdominal pain: Yes Location of pain: Epigastric Pain consistency: constant Severity: moderate Quality: cramping Exacerbating factors: none Relieving factors: none Associated symtoms: Reports anorexia, malaise and nausea; Denies altered mental status, anxiety, bloating, change in vision, chest pain, cough, diaphoresis, decreased urine output, dizziness, dysuria, epistaxis, fatigue, fecal incontinence, fevers/chills, headache(s), myalgias, numbness, palpitations, rash, short of breath, syncope, tenesmus, tinnitus or weakness Review of Systems Const: Reports: malaise; Denies: fever(s), chills, fatigue or diaphoresis Eyes: Denies: change in vision ENMT: Denies: throat pain, tinnitus or epistaxis Card: Denies: chest pain, palpitations or syncope Resp: Denies: dyspnea, productive cough or non-productive cough GI: Reports: abdominal pain, nausea and diarrhea; Denies: bloating or fecal incontinence : Denies: dysuria, urinary frequency or urinary urgency Skin/Breast: Denies: rash or pruritus Neuro: Denies: headache(s) or dizziness Psych: Denies: anxiety PFSH ED PFSH: Medical History GERD (gastroesophageal reflux disease) HTN (hypertension) Pancreatic cancer Type 2 diabetes mellitus Surgical History H/O: hysterectomy History of biliary duct stent placement History of bladder suspension procedure History of ERCP (03/15/21) ERCP with biliary stent placement History of esophagogastroduodenoscopy (05/24/21) EGD and ERCP with replacement of biliary stent History of esophagogastroduodenoscopy (EGD) (11/17/21) EGD and endoscopic ultrasound History of exploratory laparotomy (01/23/22) Exploratory laparotomy with cholecystectomy, Chinmay-en-Y hepaticojejunostomy, and placement of feeding jejunostomy Family History Mother Cancer Colon, kidney Diabetes Grandmother Dementia Other Hyperlipidemia Hypertension Suicide Denies family history of CAD (coronary artery disease) Clotting disorder Psychiatric illness Chronic kidney disease (CKD) Anesthesia complication Bleeding disorder Lung disease Stroke Social History Smoking and tobacco status: former smoker Quit status (tobacco): has quit using tobacco Year quit tobacco: 2003 Former quit date comment: 25 py Alcohol intake: never Substance/Drug Use: never Lives independently: Yes Household members: other Details: Ex- Marital status: Physical Exam Const: EXAM LIMITATIONS: no altered mental status GENERAL APPEARANCE: cooperative NUTRITIONAL APPEARANCE: cachectic ORIENTATION/CONSCIOUSNESS: Yes awake, Yes oriented to person, Yes oriented to place and Yes oriented to time HENMT: COMMON NORMALS: normocephalic, atraumatic and hearing grossly normal bilaterally HEAD & SCALP: normocephalic and atraumatic Resp: COMMON NORMALS: normal respiratory effort, No retractions, No use of accessory muscles and clear to auscultation bilaterally AUSCULTATION: clear to auscultation bilaterally Cardio: COMMON NORMALS: regular rate, regular rhythm and No murmurs present (Cardio) RATE: regular rate RHYTHM: regular rhythm GI: COMMON NORMALS: Soft to palpation and No hepatosplenomegaly present AUSCULTATION: Yes normoactive bowel sounds PALPATION: Yes Soft to palpation, No Tenderness to palpation present (GI), No Guarding due to palpation present (GI) and Yes No hepatosplenomegaly present OTHER: Bilious drainage from the PEG tube no coffee-ground drainage no bright red blood Extremity: COMMON NORMALS: normal to inspection, capillary refill normal, no clubbing, cyanosis or edema, no calf tenderness and no pedal edema Neuro: SENSORIUM/ORIENTATION: Yes oriented to person, Yes oriented to place and Yes oriented to time Skin: COMMON NORMALS: no rashes or lesions noted GENERAL SKIN EXAM: no rashes or lesions noted Course Vital Signs: Vital signs: Vital Signs Temperature 97.7 F 11/20/22 06:09 Pulse Rate 78 11/20/22 08:17 Respiratory Rate 16 11/20/22 08:17 Blood Pressure 135/96 11/20/22 06:09 Pulse Oximetry 95 11/20/22 08:17 Oxygen Delivery Me thod Room Air 11/20/22 08:17 MDM - Nausea/Vomiting/Diarrhea Medical Decision Making Patient had minimal relief with Pepcid and GI cocktail initially she was reluctant to take the GI cocktail we offered because she was convinced that this is all reflux. I think some of this is likely pain from her primary tumor. She did have improvement after the morphine was given. We will discharge her home with oxycodone she has an appointment this morning within the next hour with Dr. Rosenthal strongly encouraged her to keep it. She is hesitant to use any pain medication stronger than Tylenol. Encouraged her and her to consider using the oxycodone as I think it would be appropriate in her particular condition. Medical Records I reviewed the patient's medical records. Lab Data I reviewed the patient's lab results. 11/20/22 06:25 11/20/22 06:25 Laboratory Results WBC 7.5 10^3/uL (4.0-10.0) 11/20/22 06:25 RBC 2.80 10^6/uL (4.1-5.3) L 11/20/22 06:25 Hgb 8.5 g/dL (11.5-15.3) L 11/20/22 06:25 Hct 25.5 % (37.0-47.0) L 11/20/22 06:25 MCV 91.1 fl (81-99) 11/20/22 06:25 MCH 30.4 pg (28.0-34.0) 11/20/22 06:25 MCHC 33.3 g/dL (30.0-36.0) 11/20/22 06:25 RDW 14.3 % (12.1-15.1) 11/20/22 06:25 Plt Count 106 10^3/cmm (130-400) L 11/20/22 06:25 MPV 9.7 fL (7.4-10.4) 11/20/22 06:25 Neut % (Auto) 93.1 % 11/20/22 06:25 Lymph % (Auto) 4.8 % 11/20/22 06:25 [place] % (Auto) 1.2 % 11/20/22 06:25 Eos % (Auto) 0.1 % 11/20/22 06:25 Baso % (Auto) 0.3 % 11/20/22 06:25 Neut # (Auto) 6.96 10^3/uL (1.8-7.7) 11/20/22 06:25 Lymph # (Auto) 0.4 10^3/uL (0.8-4.8) L 11/20/22 06:25 [place] # (Auto) 0.1 10^3/uL (0.2-0.9) L 11/20/22 06:25 Eos # (Auto) 0.0 10^3/uL (0.0-0.8) 11/20/22 06:25 Baso # (Auto) 0.0 10^3/uL (0.0-0.1) 11/20/22 06:25 Nucleated RBC % (auto) 0 % 11/20/22 06:25 Nucleated RBCs # 0.0 /100WBC 11/20/22 06:25 Sodium 128 mmol/L (136-145) L 11/20/22 06:25 Potassium 3.3 mmol/L (3.5-5.1) L 11/20/22 06:25 Chloride 95 mmol/L (98-107) L 11/20/22 06:25 Carbon Dioxide 23 mmol/L (22-29) 11/20/22 06:25 Anion Gap 13.3 (5-19) 11/20/22 06:25 BUN 11 mg/dL (8-23) 11/20/22 06:25 Creatinine 0.4 mg/dL (0.5-0.9) L 11/20/22 06:25 GFR Calculation 161.2 mL/min (90-130) H 11/20/22 06:25 Glucose 129 mg/dL (65-115) H 11/20/22 06:25 Calculated Osmolality 267 mOsm/kg (285-295) L 11/20/22 06:25 Calcium 8.2 mg/dL (8.5-10.5) L 11/20/22 06:25 Total Bilirubin 1.3 mg/dL (0.15-1.2) H 11/20/22 06:25 AST 19 U/L (0-32) 11/20/22 06:25 ALT 15 U/L (0-33) 11/20/22 06:25 Alkaline Phosphatase 103 U/L (35-105) 11/20/22 06:25 Total Protein 5.5 g/dL (6.6-8.7) L 11/20/22 06:25 Albumin 2.8 g/dL (3.5-5.2) L 11/20/22 06:25 Globulin 2.7 g/dL (1.3-4.6) 11/20/22 06:25 Lipase 4 U/L (13-60) L 11/20/22 06:25 Urine Color Yellow (Yellow) 11/20/22 08:18 Urine Appearance Clear (CLEAR) 11/20/22 08:18 Urine pH 7 (5-7) 11/20/22 08:18 Ur Specific [place] 1.010 (1.005-1.030) 11/20/22 08:18 Urine Protein Neg (Negative) 11/20/22 08:18 Urine Glucose (UA) Norm (Normal) 11/20/22 08:18 Urine Ketones Negative (Negative) 11/20/22 08:18 Urine Blood Neg (Negative) 11/20/22 08:18 Urine Nitrate Negative (Negative) 11/20/22 08:18 Urine Bilirubin Neg (Negative) 11/20/22 08:18 Urine Urobilinogen Norm mg/dL (Negative) 11/20/22 08:18 Ur Leukocyte Esterase Negative (Negative) 11/20/22 08:18 Discharge Plan Discharge Patient Disposition: Home Clinical Impression: Adenocarcinoma of head of pancreas, Metastasis from pancreatic cancer Condition: Stable Prescriptions: New oxycodone 5 mg tablet 5 mg PO Q6H PRN (Reason: pain) Qty: 30 0RF No Action pantoprazole [Protonix] 40 mg tablet,delayed release (DR/EC) 40 mg PO BID (DME) Bedside Commode See Rx Instructions .Route .MEDSUPPLY Qty: 1 0RF Rx Instructions: As directed Tylenol Ex Str Rapid Release 500 mg Tablet 500 mg PO Q6H PRN (Reason: Pain) ondansetron 4 mg tablet,disintegrating 4 mg PO Q8H PRN (Reason: Nausea And Vomiting) Novolog FlexPen U-100 Insulin 100 unit/mL (3 mL) insulin pen See Rx Instructions .ROUTE .COMPLEX Rx Instructions: sliding scale four times a day as needed TPN Electrolytes 35-20-5 mEq/20 mL Solution See Rx Instructions .ROUTE .COMPLEX Rx Instructions: intravenously at night for 12 hours as directed Discharge Orders: Discharge ED (Routine); Ordered 11/20/22 Ordered By: Seamus Jason Referrals: Bob Rosenthal MD [Primary Care Provider] - Discharge Diet: Usual diet Discharge Activity: Increase activity as tolerated Patient Instructions: Opioid Safety, Pain Management Activity Restrictions/Additional Instructions: You are seen today for abdominal pain that is suspected be related to your pancreatic cancer. Recommend that you use the oxycodone 5 mg 1 every 6 hours as needed. You can use the Phenergan every 8 hours as needed for nausea and vomiting. Keep your scheduled appointments with Dr. Rosenthal. Coding Level of Care Code ED Senior Materials Scientist for Vasyl Le
[2022-11-20 06:32] LABS: Basophils % 0.3 %; Eosinophils % 0.1 %; Hematocrit 25.5 % (37.0-47.0); Hemoglobin 8.5 g/dL (11.5-15.3); Lymphocytes # 0.4 10^3/uL (0.8-4.8); Lymphocytes % 4.8 %; Mean Corpuscular HGB Conc 33.3 g/dL (30.0-36.0); Mean Corpuscular Hemoglobin 30.4 pg (28.0-34.0); Mean Corpuscular Volume 91.1 fl (81-99); Mean Platelet Volume 9.7 fL (7.4-10.4); Monocytes # 0.1 10^3/uL (0.2-0.9); Monocytes % 1.2 %; Neutrophils # 6.96 10^3/uL (1.8-7.7); Neutrophils % 93.1 %; Nucleated Red Blood Cells % 0 %; Platelet Count 106 10^3/cmm (130-400); Red Cell Distribution Width 14.3 % (12.1-15.1); White Blood Count 7.5 10^3/uL (4.0-10.0)
[2022-11-20] MEDS: promethazine 25 mg/mL SDV 1 mL IM (06:43)
[2022-11-20] MEDS: diphenhydrAMINE 50 mg/mL SDV 1mL 25 MG IVP (06:44)
[2022-11-20] MEDS: sodium chloride 0.9% 1,000 ML 999 ML IV ×2 (06:44→07:59)
[2022-11-20] MEDS: famotidine 20 mg/2 mL INJ 40 MG IVP (06:44)
[2022-11-20 06:49] LABS: Alanine Aminotransferase 15 U/L (0-33); Albumin Level 2.8 g/dL (3.5-5.2); Alkaline Phosphatase 103 U/L (35-105); Anion Gap 13.3 (5-19); Aspartate Amino Transferase 19 U/L (0-32); Blood Urea Nitrogen 11 mg/dL (8-23); Calcium 8.2 mg/dL (8.5-10.5); Carbon Dioxide 23 mmol/L (22-29); Chloride 95 mmol/L (98-107); Globulin 2.7 g/dL (1.3-4.6); Glomerular Filtration Rate 161.2 mL/min (90-130); Glucose 129 mg/dL (65-115); Lipase 4 U/L (13-60); Osmolality Calculated 267 mOsm/kg (285-295); Potassium 3.3 mmol/L (3.5-5.1); Sodium 128 mmol/L (136-145); Total Bilirubin 1.3 mg/dL (0.15-1.2); Total Protein 5.5 g/dL (6.6-8.7)
[2022-11-20] MEDS: lidocaine 2% viscous 15 ML, aluminum-mag hydrox-simethicon 30 ML, sucralfate oral liq 1 GM PO (08:10)
[2022-11-20] MEDS: morphine 4 mg/mL SDV 1 mL IVP (08:12)
[2022-11-20 08:17] VITALS: PULSE 78; RESP 16; O2SAT 95
[2022-11-20 08:33] LABS: Add Urine Microscopic? NO
[2022-11-20 08:34] LABS: Bilirubin Urine Neg (Negative); Blood Urine Neg (Negative); Charge for UA Resulting for Rev; Glucose Urine UA Norm (Normal); Ketones Urine Negative (Negative); Leukocyte Esterase Urine Negative (Negative); Nitrate Urine Negative (Negative); Protein Urine Neg (Negative); Urine Appearance Clear (CLEAR); Urine Color Yellow (Yellow); Urobilinogen Urine Norm (Negative); pH Urine 7 (5-7)
[2022-11-20 09:44] VITALS: PULSE 74; RESP 15; O2SAT 97
[2022-11-20 10:32] LABS: Magnesium 1.6 mg/dL (1.7-2.3); Phosphorus 2.8 mg/dL (2.5-4.5); Triglycerides 81 mg/dL (0-150)
== END 2022-11-20 09:55 | disposition home or self-care (01) ==
PROVIDERS: Emergency Provider Family Medicine; PCP Internal Medicine Medical Oncology
DX: C25.0 Malignant neoplasm of head of pancreas (principal); C79.9 Secondary malignant neoplasm of unspecified site
CPT/HCPCS: 80053; 81003; 83690; 83735; 84100; 84478; 85025; 96361; 96372; 96374; 96375; 99284; J1200; J2270; J2550; J3490; J7030

== ENCOUNTER 2022-11-22 12:05 | Emergency (ER) | payer BC, MEDICAID, SELFPAY ==
[2022-11-22 12:28] VITALS: BP 113/80; PULSE 82; RESP 18; TEMP 37.2; O2SAT 100; BMI 19.8
--- NOTE | 2022-11-22 12:37 | ED_ITS ---
HPI - Abdominal Pain General: Chief Complaint: Abdominal Pain Stated Complaint: sent from deanne office Time Seen by Provider: 11/22/22 12:30 History of Present Illness: Patient presents to the ER with complaints of abdominal pain and fever for the last 3 days. Patient recently completed a round of chemotherapy for adenocarcinoma of the pancreas. Patient's fever is as high as 101.4. Patient is has labs drawn at Dr. Rosenthal's office today where they did a CBC and a CMP and the results are in our system. Patient's hemoglobin was 7.2. Patient declines pain medicine at this time. MD elicited complaint: abdominal pain Pertinent past history: other (Adenocarcinoma the pancreas) Onset (ago): day(s) (3 days ago) Pain Consistency: constant Location: Other (Moves throughout the abdomen) Severity: moderate Exacerbating factors: nothing Relieving factors: nothing Context: other (Recently completed a round of chemotherapy) Review of Systems General: Reports: 10 or more systems reviewed and unremarkable except in HPI and below PFSH ED PFSH: Medical History GERD (gastroesophageal reflux disease) HTN (hypertension) Pancreatic cancer Type 2 diabetes mellitus Surgical History H/O: hysterectomy History of biliary duct stent placement History of bladder suspension procedure History of ERCP (03/15/21) ERCP with biliary stent placement History of esophagogastroduodenoscopy (05/24/21) EGD and ERCP with replacement of biliary stent History of esophagogastroduodenoscopy (EGD) (11/17/21) EGD and endoscopic ultrasound History of exploratory laparotomy (01/23/22) Exploratory laparotomy with cholecystectomy, Chinmay-en-Y hepaticojejunostomy, and placement of feeding jejunostomy Family History Mother Cancer Colon, kidney Diabetes Grandmother Dementia Other Hyperlipidemia Hypertension Suicide Denies family history of CAD (coronary artery disease) Clotting disorder Psychiatric illness Chronic kidney disease (CKD) Anesthesia complication Bleeding disorder Lung disease Stroke Social History Smoking and tobacco status: former smoker Quit status (tobacco): has quit using tobacco Year quit tobacco: 2003 Former quit date comment: 25 py Alcohol intake: never Substance/Drug Use: never Lives independently: Yes Household members: other Details: Ex- Marital status: Physical Exam Const: COMMON NORMALS: no acute distress, average body habitus, patient oriented x3, no limitations, healthy appearing, alert and well nourished HENMT: COMMON NORMALS: normocephalic, atraumatic, hearing grossly normal bilaterally, external ears normal, Normal external nose present and moist oral mucous membranes HEAD & SCALP: normocephalic and atraumatic NOSE: Normal external nose present EXTERNAL EAR: Yes external ears normal Eye: COMMON NORMALS: Equal, round and reactive pupils present, EOMs intact bilaterally, conjunctivae normal and no scleral icterus CONJUNCTIVA: Yes conjunctivae normal PUPIL: Yes Equal, round and reactive pupils present Neck/C-Spine: COMMON NORMALS: full ROM, no lymphadenopathy, supple, no meningeal signs, no JVD and Thyroid normal THYROID: Thyroid normal Lymph: LYMPHATIC: no lymphadenopathy noted Chest: COMMONS NORMALS: normal inspection of the chest and normal palpation of entire chest wall Resp: COMMON NORMALS: normal respiratory effort, No retractions, No use of accessory muscles and clear to auscultation bilaterally AUSCULTATION: clear to auscultation bilaterally Cardio: COMMON NORMALS: no JVD, regular rate, regular rhythm, S1 normal heart sound present, S2 normal heart sound present, No gallops present (Cardio), No clicks present (Cardio), No murmurs present (Cardio) and No rub (Cardio) RATE: regular rate RHYTHM: regular rhythm HEART SOUNDS: S1 normal heart sound present and S2 normal heart sound present GI: COMMON NORMALS: Soft to palpation, No hepatosplenomegaly present and no masses PALPATION: Yes Soft to palpation and Yes No hepatosplenomegaly present Neuro: COMMON NORMALS: patient oriented x3 SENSORIUM/ORIENTATION: Yes alert MENINGEAL SIGNS: Yes no meningeal signs Course Vital Signs: Vital signs: Vital Signs Temperature 98.9 F 11/22/22 12:28 Pulse Rate 79 11/22/22 14:32 Respiratory Rate 20 H 11/22/22 14:32 Blood Pressure 132/82 11/22/22 14:32 Pulse Oximetry 100 11/22/22 14:32 Oxygen Delivery Me thod Room Air 11/22/22 14:32 MDM - Abdominal Pain Medical Decision Making Patient presents today with abdominal pain, nausea vomiting. By the time she came to the ER her nausea vomiting was resolved. She saw Dr. Rosenthal's office this morning they tamara a CBC and CMP which showed patient is anemic with a hemoglobin of 7.2 she is scheduled tomorrow for blood transfusion. We did a lipase and a contrasted CT scan of her abdomen. This was suspicious for right- sided colitis. Patient will be placed on oral antibiotics and will keep her appointment with Dr. Rosenthal tomorrow for blood transfusion. Differential Diagnosis Likely abdominal pain; Unlikely acute appendicitis, calculus of kidney, constipation, diverticulitis, endometriosis, gastroenteritis, pancreatitis or small bowel obstruction Medical Records I reviewed the patient's medical records. Lab Data I reviewed the patient's lab results. Labs/Radiology: Radiology Impressions Chest X-Ray 11/22/22 12:38 Impression: 1. Small bilateral pleural effusions. 2. Atherosclerosis. Abdomen/Pelvis CT 11/22/22 12:43 IMPRESSION: 1. Evidence of progressive disease compared to the 08/2022 PET/CT. 2. Persistent FDG avid pancreatic head mass appears similar to previous. Associated compression of the traversing duodenum. 3. New appearing suspected hepatic metastasis described above. 4. Small LEFT greater than RIGHT pleural effusions compressive atelectasis in the lung bases. 5. Areas of induration in the RIGHT upper quadrant along the undersurface of the RIGHT hepatic lobe suspicious for peritoneal carcinomatosis. Additional mesenteric implants described above. 6. Areas of nodular enhancement seen involving the RIGHT colon, hepatic flexure and proximal transverse colon suspicious for metastatic implants. 7. Associated diffuse wall thickening and edema involving the RIGHT colon, cecum, and hepatic flexure suspicious for infectious or inflammatory colitis. 8. Diffuse body wall anasarca. 9. Additional metastatic implants noted in the pelvis of the sigmoid colon similar to previous. Laboratory Results Lipase 4 U/L (13-60) L 11/22/22 13:00 Discharge Plan Discharge Patient Disposition: Home Clinical Impression: Colitis Abdominal pain Qualifiers: Abdominal location: generalized Qualified Code(s): R10.84 - Generalized abdominal pain Condition: Stable Prescriptions: New Cipro 500 mg/5 mL suspension,microcapsule recon 500 mg PO Q12H 10 Days Qty: 100 0RF No Action pantoprazole [Protonix] 40 mg tablet,delayed release (DR/EC) 40 mg PO BID (DME) Bedside Commode See Rx Instructions .Route .MEDSUPPLY Qty: 1 0RF Rx Instructions: As directed Tylenol Ex Str Rapid Release 500 mg Tablet 500 mg PO Q6H PRN (Reason: Pain) ondansetron 4 mg tablet,disintegrating 4 mg PO Q8H PRN (Reason: Nausea And Vomiting) Novolog FlexPen U-100 Insulin 100 unit/mL (3 mL) insulin pen See Rx Instructions .ROUTE .COMPLEX Rx Instructions: sliding scale four times a day as needed TPN Electrolytes 35-20-5 mEq/20 mL Solution See Rx Instructions .ROUTE .COMPLEX Rx Instructions: intravenously at night for 12 hours as directed oxycodone 5 mg tablet 5 mg PO Q6H PRN (Reason: pain) Qty: 30 0RF L[place]otil 2.5-0.025 mg tablet 2 tab PO QID PRN (Reason: Diarrhea) Qty: 60 3RF Rx Instructions: 2 tablets orally 4 times daily until control of diarrhea has been achieved. Discharge Orders: Discharge ED (Routine); Ordered 11/22/22 Ordered By: Darin Dueñas Referrals: Bob Rosenthal MD [Primary Care Provider] - Patient Instructions: Abdominal Pain (ED), Colitis (ED) Activity Restrictions/Additional Instructions: Please keep your appointment with Dr. Rosenthal tomorrow for blood transfusion, your CT today showed possible right-sided colitis. You you will be placed on Cipro liquid antibiotics 5 mL twice a day for the next 10 days. This will help with your colitis is infectious. It may be inflammatory also. Coding Level of Care Code ED Typesetting Machine Operator/Tender for Vasyl Le
--- NOTE | 2022-11-22 12:38 | XR_ITS ---
WS: [id number] Portable AP upright chest, 11/22/2022 Clinical Data: fever Comparison: PA chest, 01/17/2022 Findings: There are small bilateral pleural effusions. The heart is not enlarged. There are no nodule s, masses or effusions. The aortic arch shows tortuosity. There is an infusion port entering the righ t internal jugular vein ending in the superior vena cava. There is a left PICC line also ending in th e superior vena cava. No pneumothorax is seen. There are surgical clips in the right upper quadrant o f the abdomen. XR/XR chest 1V portable [id number] Impression: 1. Small bilateral pleural effusions. 2. Atherosclerosis.
--- NOTE | 2022-11-22 12:43 | CT_ITS ---
WS: [id number] CT ABDOMEN PELVIS TECHNIQUE: Contrast-enhanced CT of the abdomen and pelvis with coronal and sagittal reformatted image s. CLINICAL INFORMATION: abd pain, n/v, on chemo for pancreatic cancer COMPARISON: CT January 30, 2022 and PET/CT August 2022 DLP: 417.[address] scans at [facility] use at least one of these dose optimization techniques: automated e xposure control; mA and/or kV adjustment per patient size (includes targeted exams where dose is matc hed to clinical indication); or iterative reconstruction. FINDINGS: Prior postoperative changes Whipple procedure. Feeding tube gastrostomy. Prior cholecystectomy. Prior hysterectomy. Enhancing mass in the pancreatic head compatible with known pancreatic neoplasm. This was previously described on the recent PET/CT August 25, 2022 and has a similar appearance. Additional nodular enhanc ement along pancreatic tail also similar to the prior PET scan suspicious for additional disease. Mesenteric nodular induration involving the undersurface of the RIGHT hepatic lobe medially suspiciou s for peritoneal carcinomatosis. Abdominal ascites is increased compared to previous. Low-attenuation lesion in the dome of the liver with additional lesions in the RIGHT hepatic lobe appears new since the contrast enhanced study 2021 suspicious for metastatic disease. These are not apparent on the rec ent PET/CT. Areas of nodular enhancement seen involving the RIGHT colon and hepatic flexure and proxi mal transverse colon suspicious for metastatic implants.Associated diffuse wall thickening and edema involving the RIGHT colon, cecum, and hepatic flexure suspicious for infectious or inflammatory colit is. Small pleural effusion with compressive atelectasis in the LEFT greater than RIGHT lung bases. Dilata tion of the pancreatic duct. Compression of the SMV. Diffuse body wall anasarca and abdominal ascites has progressed compared to previous. Pelvic ascites. Diffuse induration in the mesentery suspicious for peritoneal carcinomatosis. Diffuse thickening and enhancement of the stomach likely due to gastri tis. Sigmoid diverticulosis. Previously described enhancing nodules in the pelvis suspicious for metastatic implants similar to e PET/CT. This extends along the dorsal sigmoid colon. LEFT adnexal cyst similar in appearance. Bladd er is decompressed in the pelvis. Adrenal glands are normal. No hydronephrosis. Small bilateral renal cysts. Normal caliber abdominal a gordy. Enhancing soft tissue nodules along the surgical excision site deep to the rectus abdominous in the anterior abdominal wall similar to the prior PET/CT. CT/CT abdomen pelvis w con* [id number] IMPRESSION: 1. Evidence of progressive disease compared to the 08/2022 PET/CT. 2. Persistent FDG avid pancreatic head mass appears similar to previous. Asso ciated compression of the traversing duodenum. 3. New appearing suspected hepatic metastasis described above. 4. Small LEFT greater than RIGHT pleural effusions compressive atelectasis in the lung bases. 5. Areas of induration in the RIGHT upper quadrant along the undersurface of t he RIGHT hepatic lobe suspicious for peritoneal carcinomatosis. Additional mese nteric implants described above. 6. Areas of nodular enhancement seen involving the RIGHT colon, hepatic flexur e and proximal transverse colon suspicious for metastatic implants. 7. Associated diffuse wall thickening and edema involving the RIGHT colon, cec um, and hepatic flexure suspicious for infectious or inflammatory colitis. 8. Diffuse body wall anasarca. 9. Additional metastatic implants noted in the pelvis of the sigmoid colon sim ilar to previous.
[2022-11-22 13:29] LABS: Lipase 4 U/L (13-60)
[2022-11-22] MEDS: sodium chloride 0.9% 1,000 ML 999 ML IV (13:39)
[2022-11-22] MEDS: iohexol 350 mg/mL 500 mL Btl (per mL) IV (13:45)
[2022-11-22 13:49] VITALS: BP 118/71; PULSE 82; RESP 19; O2SAT 99
[2022-11-22 14:32] VITALS: BP 132/82; PULSE 79; RESP 20; O2SAT 100
[2022-11-22 15:39] VITALS: BP 124/75; PULSE 76; RESP 21; O2SAT 93
== END 2022-11-22 15:40 | disposition home or self-care (01) ==
PROVIDERS: Emergency Provider Emergency Medicine; PCP Internal Medicine Medical Oncology
DX: R10.84 Generalized abdominal pain (principal); C25.9 Malignant neoplasm of pancreas, unspecified
CPT/HCPCS: 71045; 74177; 83690; 87040; 99285; J7030; Q9967

== ENCOUNTER 2022-11-24 14:02 | Emergency (ER) | payer BC, MEDICAID, SELFPAY ==
[2022-11-24] VITALS (8 sets, daily range): BP systolic 104–133; BP diastolic 65–97; PULSE 81–98; RESP 16–18; TEMP 36.5–36.9; O2SAT 95–98
--- NOTE | 2022-11-24 15:40 | W.ED.ABDPA2 ---
HPI - Abdominal Pain General: Chief Complaint: Abdominal Pain Stated Complaint: ABD PAIN Time Seen by Provider: 11/24/22 15:24 History of Present Illness: Patient presents to the ER with complaints of abdominal pain. Patient has a history of pancreatic cancer and has a drain in currently. EMS gave the patient Toradol 30 mg IM with some relief the pain went from a 10 to a 4. Patient still having some nausea. Patient was seen here approximately 2 days ago for similar results and was diagnosed with colitis and sent home on oral Levaquin. Review of Systems General: Reports: 10 or more systems reviewed and unremarkable except in HPI and below PFSH ED PFSH: Medical History GERD (gastroesophageal reflux disease) HTN (hypertension) Pancreatic cancer Type 2 diabetes mellitus Surgical History H/O: hysterectomy History of biliary duct stent placement History of bladder suspension procedure History of ERCP (03/15/21) ERCP with biliary stent placement History of esophagogastroduodenoscopy (05/24/21) EGD and ERCP with replacement of biliary stent History of esophagogastroduodenoscopy (EGD) (11/17/21) EGD and endoscopic ultrasound History of exploratory laparotomy (01/23/22) Exploratory laparotomy with cholecystectomy, Chinmay-en-Y hepaticojejunostomy, and placement of feeding jejunostomy Family History Mother Cancer Colon, kidney Diabetes Grandmother Dementia Other Hyperlipidemia Hypertension Suicide Denies family history of CAD (coronary artery disease) Clotting disorder Psychiatric illness Chronic kidney disease (CKD) Anesthesia complication Bleeding disorder Lung disease Stroke Social History Smoking and tobacco status: former smoker Quit status (tobacco): has quit using tobacco Year quit tobacco: 2003 Former quit date comment: 25 py Alcohol intake: never Substance/Drug Use: never Lives independently: Yes Household members: other Details: Ex- Marital status: Physical Exam Const: COMMON NORMALS: no acute distress, average body habitus, patient oriented x3, no limitations, alert and well nourished HENMT: COMMON NORMALS: normocephalic, atraumatic, hearing grossly normal bilaterally, external ears normal, Normal external nose present and moist oral mucous membranes HEAD & SCALP: normocephalic and atraumatic NOSE: Normal external nose present EXTERNAL EAR: Yes external ears normal Neck/C-Spine: COMMON NORMALS: no JVD Chest: COMMONS NORMALS: normal inspection of the chest and normal palpation of entire chest wall Resp: COMMON NORMALS: normal respiratory effort, No retractions, No use of accessory muscles and clear to auscultation bilaterally AUSCULTATION: clear to auscultation bilaterally Cardio: COMMON NORMALS: no JVD, regular rate, regular rhythm, S1 normal heart sound present, S2 normal heart sound present, No gallops present (Cardio), No clicks present (Cardio), No murmurs present (Cardio) and No rub (Cardio) RATE: regular rate RHYTHM: regular rhythm HEART SOUNDS: S1 normal heart sound present and S2 normal heart sound present GI: COMMON NORMALS: Normal to inspection, nondistended, normoactive bowel sounds present and No hepatosplenomegaly present PALPATION: Yes No hepatosplenomegaly present OTHER: Drain tube in place abdomen tender to palpation throughout. Neuro: COMMON NORMALS: patient oriented x3 SENSORIUM/ORIENTATION: Yes alert Course Vital Signs: Vital signs: Vital Signs Temperature 97.7 F 11/24/22 17:30 Pulse Rate 86 11/24/22 18:00 Respiratory Rate 18 11/24/22 18:00 Blood Pressure 125/78 11/24/22 18:00 Pulse Oximetry 95 11/24/22 18:00 Oxygen Delivery Me thod Room Air 11/24/22 18:00 MDM - Abdominal Pain Medical Decision Making Patient presents to the ER with complaints of abdominal pain lab work was obtained patient's white count did go down from the previous visit a couple days ago. Patient does have pancreatic cancer. Patient does follow-up with Dr. Rosenthal. Patient did just receive blood transfusion of 1 unit yesterday. Patient was given 50 mg tramadol p.o. on top of the Toradol 30 mg IM that the EMS gave her patient's pain has went way down. Patient is ready to be discharged home patient has tramadol at home that she can take 1-2 every 6 hours. Patient should follow-up with her PCP and/or Dr. Rosenthal within the next week to have her blood rechecked. Lab Data 11/24/22 15:49 11/24/22 15:49 Labs/Radiology: Laboratory Results WBC 0.6 10^3/uL (4.0-10.0) L* 11/24/22 15:49 RBC 2.96 10^6/uL (4.1-5.3) L 11/24/22 15:49 Hgb 8.3 g/dL (11.5-15.3) L 11/24/22 15:49 Hct 26.3 % (37.0-47.0) L 11/24/22 15:49 MCV 88.9 fl (81-99) 11/24/22 15:49 MCH 28.0 pg (28.0-34.0) 11/24/22 15:49 MCHC 31.6 g/dL (30.0-36.0) 11/24/22 15:49 RDW 18.3 % (12.1-15.1) H 11/24/22 15:49 Plt Count 117 10^3/cmm (130-400) L 11/24/22 15:49 MPV 10.1 fL (7.4-10.4) 11/24/22 15:49 Neut % (Auto) 64.5 % 11/24/22 15:49 Lymph % (Auto) 12.9 % 11/24/22 15:49 [place] % (Auto) 22.6 % 11/24/22 15:49 Eos % (Auto) 0.0 % 11/24/22 15:49 Baso % (Auto) 0.0 % 11/24/22 15:49 Neut # (Auto) 0.40 10^3/uL (1.8-7.7) L* 11/24/22 15:49 Lymph # (Auto) 0.1 10^3/uL (0.8-4.8) L 11/24/22 15:49 [place] # (Auto) 0.1 10^3/uL (0.2-0.9) L 11/24/22 15:49 Eos # (Auto) 0.0 10^3/uL (0.0-0.8) 11/24/22 15:49 Baso # (Auto) 0.0 10^3/uL (0.0-0.1) 11/24/22 15:49 Nucleated RBC % (auto) 0 % 11/24/22 15:49 Nucleated RBCs # 0.0 /100WBC 11/24/22 15:49 Sodium 132 mmol/L (136-145) L 11/24/22 15:49 Potassium 3.0 mmol/L (3.5-5.1) L 11/24/22 15:49 Chloride 104 mmol/L (98-107) 11/24/22 15:49 Carbon Dioxide 18 mmol/L (22-29) L 11/24/22 15:49 Anion Gap 13.0 (5-19) 11/24/22 15:49 BUN 20 mg/dL (8-23) 11/24/22 15:49 Creatinine 0.5 mg/dL (0.5-0.9) 11/24/22 15:49 GFR Calculation 124.6 mL/min (90-130) 11/24/22 15:49 Glucose 145 mg/dL (65-115) H 11/24/22 15:49 Calculated Osmolality 279 mOsm/kg (285-295) L 11/24/22 15:49 Calcium 7.4 mg/dL (8.5-10.5) L 11/24/22 15:49 Total Bilirubin 0.9 mg/dL (0.15-1.2) 11/24/22 15:49 AST 11 U/L (0-32) 11/24/22 15:49 ALT 8 U/L (0-33) 11/24/22 15:49 Alkaline Phosphatase 82 U/L (35-105) 11/24/22 15:49 Total Protein 5.2 g/dL (6.6-8.7) L 11/24/22 15:49 Albumin 2.6 g/dL (3.5-5.2) L 11/24/22 15:49 Globulin 2.6 g/dL (1.3-4.6) 11/24/22 15:49 Lipase 4 U/L (13-60) L 11/24/22 15:49 Discharge Plan Discharge Patient Disposition: Home Clinical Impression: Colitis Abdominal pain Qualifiers: Abdominal location: generalized Qualified Code(s): R10.84 - Generalized abdominal pain Condition: Stable Prescriptions: No Action pantoprazole [Protonix] 40 mg tablet,delayed release (DR/EC) 40 mg PO BID (DME) Bedside Commode See Rx Instructions .Route .MEDSUPPLY Qty: 1 0RF Rx Instructions: As directed acetaminophen [Tylenol Ex Str Rapid Release] 500 mg Tablet 500 mg PO Q6H PRN (Reason: Pain) ondansetron 4 mg tablet,disintegrating 4 mg PO Q8H PRN (Reason: Nausea And Vomiting) insulin aspart U-100 [Novolog FlexPen U-100 Insulin] 100 unit/mL (3 mL) insulin pen See Rx Instructions .ROUTE .COMPLEX Rx Instructions: sliding scale four times a day as needed TPN Electrolytes 35-20-5 mEq/20 mL Solution See Rx Instructions .ROUTE .COMPLEX Rx Instructions: intravenously at night for 12 hours as directed oxycodone 5 mg tablet 5 mg PO Q6H PRN (Reason: pain) Qty: 30 0RF levofloxacin 250 mg/10 mL solution 500 mg PO DAILY tramadol 50 mg tablet 50 mg PO Q6H Discharge Orders: Discharge ED (Routine); Ordered 11/24/22 Ordered By: Darin Dueñas Referrals: Bob Rosenthal MD [Primary Care Provider] - 1 week Patient Instructions: Abdominal Pain (ED), Opioid Safety, Pain Management Activity Restrictions/Additional Instructions: Please continue to take your antibiotic for your colitis as directed. Feel free to use your tramadol 50 mg tablets you are ready have at home for 1 to 2 pills by mouth every 6 hours as needed for pain. Please follow-up with Dr. Rosenthal and/or your primary care doctor within the next 1 week for reevaluation and lab draw to recheck your white blood cell count. Feel free to return to the ER if pain worsens and is not controlled with tramadol. Coding Level of Care Code ED Catering Administrative Assistant for Vasyl Le
[2022-11-24 15:57] LABS: Hematocrit 26.3 % (37.0-47.0); Hemoglobin 8.3 g/dL (11.5-15.3); Lymphocytes # 0.1 10^3/uL (0.8-4.8); Lymphocytes % 12.9 %; Mean Corpuscular HGB Conc 31.6 g/dL (30.0-36.0); Mean Corpuscular Volume 88.9 fl (81-99); Mean Platelet Volume 10.1 fL (7.4-10.4); Monocytes # 0.1 10^3/uL (0.2-0.9); Monocytes % 22.6 %; Neutrophils % 64.5 %; Nucleated Red Blood Cells % 0 %; Platelet Count 117 10^3/cmm (130-400); Red Blood Count 2.96 10^6/uL (4.1-5.3); Red Cell Distribution Width 18.3 % (12.1-15.1)
--- NOTE | 2022-11-24 16:10 | PC.NURSE ---
Patient in room, c/o pain to abdomen, abdomen distended and firm with active sounds in up quadrants and absent in lower quadrants. Peg tube placed left mid quadrant, currently draining into catheter bag for decompression. Picc line to left upper arm with good blood return and flush. VSS, AAOx4, has not had BM in 2 months due to the cancer stated by patient and .
[2022-11-24 16:21] LABS: Alanine Aminotransferase 8 U/L (0-33); Albumin Level 2.6 g/dL (3.5-5.2); Alkaline Phosphatase 82 U/L (35-105); Aspartate Amino Transferase 11 U/L (0-32); Blood Urea Nitrogen 20 mg/dL (8-23); Calcium 7.4 mg/dL (8.5-10.5); Carbon Dioxide 18 mmol/L (22-29); Chloride 104 mmol/L (98-107); Globulin 2.6 g/dL (1.3-4.6); Glomerular Filtration Rate 124.6 mL/min (90-130); Glucose 145 mg/dL (65-115); Lipase 4 U/L (13-60); Osmolality Calculated 279 mOsm/kg (285-295); Sodium 132 mmol/L (136-145); Total Bilirubin 0.9 mg/dL (0.15-1.2); Total Protein 5.2 g/dL (6.6-8.7)
[2022-11-24 16:22] LABS: White Blood Count 0.6 10^3/uL (4.0-10.0)
[2022-11-24 16:23] LABS: Slide Review Slide Review Perform
[2022-11-24] MEDS: TRAMadol 50 mg Tablet PO (17:20)
== END 2022-11-24 19:07 | disposition home or self-care (01) ==
PROVIDERS: Physician Assistant; Emergency Provider Emergency Medicine; PCP Internal Medicine Medical Oncology
DX: K52.9 Noninfective gastroenteritis and colitis, unspecified (principal); R10.84 Generalized abdominal pain; Z79.4 Long term (current) use of insulin; Z87.891 Personal history of nicotine dependence; I10 Essential (primary) hypertension; E11.9 Type 2 diabetes mellitus without complications; Z85.07 Personal history of malignant neoplasm of pancreas
CPT/HCPCS: 80053; 83690; 85025; 99283

== ENCOUNTER 2022-11-30 08:34 | Oncology outpatient (recurring) (ONCR) | payer BC, MEDICAID, SELFPAY ==
[2022-11-22 10:32] VITALS: BP 129/84; PULSE 83; RESP 16; TEMP 37.9; O2SAT 95
[2022-11-22 10:49] LABS: Basophils % 0.2 %; Eosinophils % 0.4 %; Hematocrit 21.9 % (37.0-47.0); Hemoglobin 7.2 g/dL (11.5-15.3); Lymphocytes # 0.3 10^3/uL (0.8-4.8); Lymphocytes % 5.9 %; Mean Corpuscular HGB Conc 32.9 g/dL (30.0-36.0); Mean Corpuscular Hemoglobin 30.8 pg (28.0-34.0); Mean Corpuscular Volume 93.6 fl (81-99); Mean Platelet Volume 10.5 fL (7.4-10.4); Monocytes # 0.2 10^3/uL (0.2-0.9); Monocytes % 4.7 %; Neutrophils # 4.45 10^3/uL (1.8-7.7); Neutrophils % 87.8 %; Nucleated Red Blood Cells % 0 %; Platelet Count 89 10^3/cmm (130-400); Red Blood Count 2.34 10^6/uL (4.1-5.3); Red Cell Distribution Width 14.5 % (12.1-15.1); White Blood Count 5.1 10^3/uL (4.0-10.0)
[2022-11-22 10:51] VITALS: BMI 19.4
[2022-11-22 11:11] LABS: Alanine Aminotransferase 10 U/L (0-33); Albumin Level 2.7 g/dL (3.5-5.2); Alkaline Phosphatase 83 U/L (35-105); Anion Gap 12.4 (5-19); Aspartate Amino Transferase 14 U/L (0-32); Blood Urea Nitrogen 17 mg/dL (8-23); Calcium 7.7 mg/dL (8.5-10.5); Carbon Dioxide 20 mmol/L (22-29); Chloride 104 mmol/L (98-107); Globulin 2.8 g/dL (1.3-4.6); Glomerular Filtration Rate 161.2 mL/min (90-130); Glucose 159 mg/dL (65-115); Osmolality Calculated 281 mOsm/kg (285-295); Potassium 3.4 mmol/L (3.5-5.1); Sodium 133 mmol/L (136-145); Total Bilirubin 0.5 mg/dL (0.15-1.2); Total Protein 5.5 g/dL (6.6-8.7)
[2022-11-22 12:11] VITALS: BP 122/73; PULSE 78; RESP 18; TEMP 37.9; O2SAT 97
[2022-11-23] MEDS: acetaminophen 325 mg Tablet 650 MG PO (08:57)
[2022-11-23] MEDS: sodium chloride 0.9% 250 mL Bag IV (09:09)
[2022-11-23] MEDS: diphenhydrAMINE 50 mg/mL SDV 1mL 25 MG IVP (09:16)
[2022-11-23 10:25] VITALS: BP 121/80; PULSE 78; RESP 16; TEMP 36.6; O2SAT 97
[2022-11-23 10:40] VITALS: BP 121/79; PULSE 77; RESP 16; TEMP 36.6; O2SAT 97
[2022-11-23 11:00] VITALS: BP 122/79; PULSE 78; RESP 18; TEMP 36.5; O2SAT 97
[2022-11-23 11:35] VITALS: BP 123/79; PULSE 76; RESP 16; TEMP 36.7; O2SAT 97
[2022-11-23 12:15] VITALS: BP 136/84; PULSE 74; RESP 18; TEMP 36.8; O2SAT 98
[2022-11-23 12:25] VITALS: BP 136/84; PULSE 74; RESP 18; TEMP 36.8; O2SAT 98
[2022-11-27 10:22] VITALS: BP 139/90; PULSE 70; RESP 18; TEMP 36.8; O2SAT 99
[2022-11-27 10:29] LABS: Basophils % 0.3 %; Eosinophils % 0.3 %; Hematocrit 24.1 % (37.0-47.0); Hemoglobin 7.7 g/dL (11.5-15.3); Lymphocytes # 0.2 10^3/uL (0.8-4.8); Lymphocytes % 6.9 %; Mean Corpuscular Hemoglobin 28.3 pg (28.0-34.0); Mean Corpuscular Volume 88.6 fl (81-99); Monocytes # 0.4 10^3/uL (0.2-0.9); Monocytes % 12.1 %; Neutrophils # 2.77 10^3/uL (1.8-7.7); Neutrophils % 79.5 %; Nucleated Red Blood Cells % 0 %; Platelet Count 167 10^3/cmm (130-400); Red Blood Count 2.72 10^6/uL (4.1-5.3); Red Cell Distribution Width 18.3 % (12.1-15.1); White Blood Count 3.5 10^3/uL (4.0-10.0)
[2022-11-27 11:00] LABS: Alanine Aminotransferase 6 U/L (0-33); Albumin Level 2.4 g/dL (3.5-5.2); Alkaline Phosphatase 82 U/L (35-105); Anion Gap 13.3 (5-19); Aspartate Amino Transferase 10 U/L (0-32); Blood Urea Nitrogen 23 mg/dL (8-23); Calcium 7.7 mg/dL (8.5-10.5); Carbon Dioxide 17 mmol/L (22-29); Chloride 112 mmol/L (98-107); Glomerular Filtration Rate 161.2 mL/min (90-130); Glucose 191 mg/dL (65-115); Magnesium 2.2 mg/dL (1.7-2.3); Osmolality Calculated 297 mOsm/kg (285-295); Potassium 3.3 mmol/L (3.5-5.1); Sodium 139 mmol/L (136-145); Total Bilirubin 0.6 mg/dL (0.15-1.2); Total Protein 5.4 g/dL (6.6-8.7); Triglycerides 93 mg/dL (0-150)
[2022-11-27 11:20] LABS: Cancer Antigen 19 9 4182 U/mL (0-35)
[2022-11-27 11:43] LABS: Slide Review Slide Review Perform
[2022-11-28 14:11] VITALS: BP 128/85; PULSE 83; RESP 16; TEMP 36.8; O2SAT 100
[2022-11-30] MEDS: acetaminophen 325 mg Tablet 650 MG PO (09:37)
[2022-11-30] MEDS: sodium chloride 0.9% 250 mL Bag IV (09:38)
[2022-11-30] MEDS: diphenhydrAMINE 50 mg/mL SDV 1mL 25 MG IVP (09:41)
[2022-11-30 10:20] VITALS: BP 135/86; PULSE 84; RESP 18; TEMP 36.4; O2SAT 95
[2022-11-30 10:35] VITALS: BP 135/86; PULSE 86; RESP 16; TEMP 36.6; O2SAT 96
[2022-11-30 10:50] VITALS: BP 138/85; PULSE 85; RESP 16; TEMP 36.5; O2SAT 95
[2022-11-30 11:40] VITALS: BP 142/90; PULSE 83; RESP 16; TEMP 36.9; O2SAT 97
[2022-11-30 12:13] VITALS: BP 147/87; PULSE 85; RESP 16; TEMP 36.6; O2SAT 96
[2022-11-30 12:30] VITALS: BP 147/87; PULSE 85; RESP 16; TEMP 36.6; O2SAT 96
== END 2022-12-14 23:59 | disposition home or self-care (01) ==
PROVIDERS: PCP Internal Medicine Medical Oncology; Visit Provider Internal Medicine Medical Oncology
DX: C25.9 Malignant neoplasm of pancreas, unspecified (principal)
CPT/HCPCS: 36430; 36591; 36592; 80053; 83735; 84100; 84478; 85025; 86301; 86850; 86900; 86920; 96374; J1200; J1642; J7050; P9016; P9040

== ENCOUNTER 2023-01-10 14:00 | Oncology outpatient (recurring) (ONCR) | payer BC, MEDICAID, SELFPAY ==
[2022-12-28 12:50] LABS: Basophils % 0.3 %; Eosinophils # 0.1 10^3/uL (0.0-0.8); Eosinophils % 2.2 %; Lymphocytes # 0.6 10^3/uL (0.8-4.8); Lymphocytes % 9.5 %; Mean Corpuscular HGB Conc 30.6 g/dL (30.0-36.0); Mean Corpuscular Hemoglobin 27.8 pg (28.0-34.0); Mean Platelet Volume 10.5 fL (7.4-10.4); Monocytes # 0.8 10^3/uL (0.2-0.9); Neutrophils # 4.23 10^3/uL (1.8-7.7); Neutrophils % 73.3 %; Nucleated Red Blood Cells % 0 %; Platelet Count 290 10^3/cmm (130-400); Red Blood Count 2.12 10^6/uL (4.1-5.3); Red Cell Distribution Width 16.7 % (12.1-15.1); White Blood Count 5.8 10^3/uL (4.0-10.0)
[2022-12-28 12:58] LABS: Alanine Aminotransferase 7 U/L (0-33); Albumin Level 2.4 g/dL (3.5-5.2); Alkaline Phosphatase 127 U/L (35-105); Anion Gap 13.5 (5-19); Aspartate Amino Transferase 12 U/L (0-32); Blood Urea Nitrogen 19 mg/dL (8-23); Carbon Dioxide 22 mmol/L (22-29); Chloride 103 mmol/L (98-107); Globulin 3.2 g/dL (1.3-4.6); Glomerular Filtration Rate 224.7 mL/min (90-130); Glucose 150 mg/dL (65-115); Magnesium 1.9 mg/dL (1.7-2.3); Osmolality Calculated 283 mOsm/kg (285-295); Potassium 4.5 mmol/L (3.5-5.1); Sodium 134 mmol/L (136-145); Total Bilirubin 0.5 mg/dL (0.15-1.2); Total Protein 5.6 g/dL (6.6-8.7); Triglycerides 66 mg/dL (0-150)
[2022-12-28 13:03] LABS: Hematocrit 19.3 % (37.0-47.0); Hemoglobin 5.9 g/dL (11.5-15.3)
[2022-12-28 13:04] LABS: Slide Review Slide Review Perform
--- NOTE | 2022-12-28 13:45 | PC.NURSE ---
Lab called with critical lab results and I let Dr. Rosenthal know what they were. Dr. Rosenthal said that the patient had 3 options of doing nothing as the patient is not active and bed bound, go to the ER for a blood transfuison, or set up an outpatient transfusion next week. Dr. Rosenthal also wanted me to fax the lab results to Dr. Ramos at [facility]. Called the patient and let her know what her lab results were and let her and her know what options Dr. Rosenthal had given for them to do. Patient and do not want to do anything at this time. Lab results faxed to Dr. Ramos's nurse Alison at
[2023-01-10 14:48] LABS: Basophils % 0.3 %; Eosinophils # 0.1 10^3/uL (0.0-0.8); Eosinophils % 0.8 %; Hemoglobin 9.1 g/dL (11.5-15.3); Lymphocytes # 0.5 10^3/uL (0.8-4.8); Lymphocytes % 5.1 %; Mean Corpuscular HGB Conc 31.4 g/dL (30.0-36.0); Mean Corpuscular Hemoglobin 28.2 pg (28.0-34.0); Mean Corpuscular Volume 89.8 fl (81-99); Mean Platelet Volume 10.2 fL (7.4-10.4); Monocytes # 0.6 10^3/uL (0.2-0.9); Monocytes % 6.3 %; Neutrophils # 8.27 10^3/uL (1.8-7.7); Neutrophils % 86.6 %; Nucleated Red Blood Cells % 0 %; Platelet Count 288 10^3/cmm (130-400); Red Blood Count 3.23 10^6/uL (4.1-5.3); Red Cell Distribution Width 17.2 % (12.1-15.1); White Blood Count 9.6 10^3/uL (4.0-10.0)
[2023-01-10 15:10] LABS: Alanine Aminotransferase 10 U/L (0-33); Albumin Level 2.5 g/dL (3.5-5.2); Alkaline Phosphatase 294 U/L (35-105); Anion Gap 13.2 (5-19); Aspartate Amino Transferase 14 U/L (0-32); Blood Urea Nitrogen 16 mg/dL (8-23); Carbon Dioxide 23 mmol/L (22-29); Chloride 103 mmol/L (98-107); Globulin 3.2 g/dL (1.3-4.6); Glomerular Filtration Rate 161.2 mL/min (90-130); Glucose 180 mg/dL (65-115); Magnesium 1.7 mg/dL (1.7-2.3); Osmolality Calculated 286 mOsm/kg (285-295); Phosphorus 3.1 mg/dL (2.5-4.5); Potassium 4.2 mmol/L (3.5-5.1); Sodium 135 mmol/L (136-145); Total Bilirubin 0.8 mg/dL (0.15-1.2); Total Protein 5.7 g/dL (6.6-8.7); Triglycerides 85 mg/dL (0-150)
--- NOTE | 2023-01-11 12:09 | PC.NURSE ---
PICC line dressing change completed for pt via sterile technique. No redness or irritation noted. Pt tolerated well.
== END 2023-01-14 23:59 | disposition home or self-care (01) ==
PROVIDERS: PCP Internal Medicine Medical Oncology; Visit Provider Internal Medicine Medical Oncology
DX: C25.0 Malignant neoplasm of head of pancreas (principal)
CPT/HCPCS: 80053; 83735; 84100; 84478; 85025

== ENCOUNTER 2023-01-14 17:00 | Observation (INO) | payer BC, MEDICAID, SELFPAY ==
[2023-01-14 17:03] VITALS: BP 131/88; PULSE 95; RESP 20; TEMP 36.8; O2SAT 94; BMI 18.3
--- NOTE | 2023-01-14 17:11 | CTR_ITS ---
PROCEDURE INFORMATION: Exam: CT Abdomen And Pelvis With Contrast Exam date and time: 01/14/2023 6:31 PM Age: 62 years old Clinical indication: Abdominal pain; Acute; Prior surgery; Surgery date: 6+ months; Surgery type: Zahida; Additional info: Abd pain, bloating, pancreatic cancer TECHNIQUE: Imaging protocol: Computed tomography of the abdomen and pelvis with contrast. Radiation optimization: All CT scans at this facility use at least one of these dose optimization techniques: automated exposure control; mA and/or kV adjustment per patient size (includes targeted exams where dose is matched to clinical indication); or iterative reconstruction. Contrast material: OMNI 350; Contrast volume: 100 ml; Contrast route: INTRAVENOUS (IV); REPORTING DATA: Count of CT and Cardiac NM exams in prior 12 months: This patient has received 3 known CTs and 0 known cardiac nuclear medicine studies in the 12 months prior to the current study. COMPARISON: CT abdomen pelvis w con* [id number] 11/22/2022 1:36 PM RADIATION DOSE METRICS: Total DLP (mGy-cm): 675.37 FINDINGS: Tubes, catheters and devices: Gastrostomy tube is in satisfactory position. Pleural spaces: There are small bilateral pleural effusions with adjacent atelectasis. Heart: Normal heart size. Coronary atherosclerotic calcifications seen. No pericardial effusion. Liver: The liver demonstrates volume redistribution and nodular contour, consistent with cirrhosis. Unchanged hepatic hypodense masses, the largest measuring 2.6 cm, likely representing metastatic disease. Gallbladder and bile ducts: The gallbladder has been surgically removed. Pancreas: See Stomach and bowel finding. Spleen: Normal. No splenomegaly. Adrenal glands: Normal. No mass. Kidneys and ureters: Symmetric enhancement of the kidneys. Mild prominence of the right renal collecting system re-identified. Bilateral subcentimeter foci of decreased attenuation are too small to characterize. No obstructing stone seen. Stomach and bowel: Status post Whipple procedure. Large, ill-defined, heterogeneous mass is again seen in the pancreatic head, involving the adjacent gastric antrum and duodenum, compatible with known malignancy. This mass is similar in appearance when compared to prior study. Marked dilatation of the pancreatic duct re-identified. Mesenteric nodular induration is again seen involving the undersurface of the right hepatic lobe medially, likely representing peritoneal carcinomatosis. Improved wall thickening of the ascending colon and proximal transverse colon. Scattered areas of peritoneal nodularity in the pelvis re-identified, consistent with metastatic implants. Appendix: No evidence of appendicitis. Intraperitoneal space: Large amount of ascites is present. 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 Gastroesophageal and perigastric varices seen. Mild diffuse atherosclerotic disease is present. Lymph nodes: Unremarkable. No enlarged lymph nodes. Urinary bladder: Unremarkable as visualized. Reproductive: The uterus is surgically absent. Bones/joints: Degenerative changes of the spine seen. Soft tissues: Bilateral inguinal hernia mesh repair changes noted. There is diffuse stranding of the subcutaneous fat, consistent with edema. Other findings: The patient is status post Whipple procedure. CT/CT abdomen pelvis w con* [id number] IMPRESSION: 1. Anasarca. 2. Persistent large pancreatic head mass infiltrating the adjacent gastric antrum and duodenum. 3. Cirrhotic liver with multiple unchanged masses, and stigmata of portal hypertension. 4. Persistent small bilateral pleural effusions with adjacent atelectasis. 5. Large amount of ascites, increased when compared to prior study. 6. Areas of intervention/metastatic implants involving the undersurface of the liver and peritoneum in the pelvis. 7. Interval improvement of ascending colon and proximal transverse colon wall thickening. 8. Interval progression of SMV occlusion.
--- NOTE | 2023-01-14 17:26 | W.ED.ABDPA2 ---
HPI - Abdominal Pain General: Chief Complaint: Abdominal Pain Stated Complaint: abd pain Time Seen by Provider: 01/14/23 17:04 History of Present Illness: Patient presents to the ER with complaints of worsening abdominal pain and distention. Patient has a diagnosis of pancreatic cancer and currently has a drain going from her stomach to external bag. Patient is currently being treated by Dr. Rosenthal. This pain and distention has been worsening over the last day or 2. Patient is aware of nothing makes the pain better or worse. Patient does have a cubitus type ulcer on her sacral region per patient. Patient hurts more when she lays on her left and right side. Review of Systems General: Reports: 10 or more systems reviewed and unremarkable except in HPI and below PFSH ED PFSH: Medical History GERD (gastroesophageal reflux disease) HTN (hypertension) Pancreatic cancer Type 2 diabetes mellitus Surgical History H/O: hysterectomy History of biliary duct stent placement History of bladder suspension procedure History of ERCP (03/15/21) ERCP with biliary stent placement History of esophagogastroduodenoscopy (05/24/21) EGD and ERCP with replacement of biliary stent History of esophagogastroduodenoscopy (EGD) (11/17/21) EGD and endoscopic ultrasound History of exploratory laparotomy (01/23/22) Exploratory laparotomy with cholecystectomy, Chinmay-en-Y hepaticojejunostomy, and placement of feeding jejunostomy Family History Mother Cancer Colon, kidney Diabetes Grandmother Dementia Other Hyperlipidemia Hypertension Suicide Denies family history of CAD (coronary artery disease) Clotting disorder Psychiatric illness Chronic kidney disease (CKD) Anesthesia complication Bleeding disorder Lung disease Stroke Social History Smoking and tobacco status: former smoker Quit status (tobacco): has quit using tobacco Year quit tobacco: 2003 Former quit date comment: 25 py Alcohol intake: never Substance/Drug Use: never Lives independently: Yes Household members: other Details: Ex- Marital status: Physical Exam Const: COMMON NORMALS: no acute distress, patient oriented x3, no limitations, alert and well nourished HENMT: COMMON NORMALS: normocephalic, atraumatic, hearing grossly normal bilaterally, external ears normal, Normal external nose present and moist oral mucous membranes HEAD & SCALP: normocephalic and atraumatic NOSE: Normal external nose present EXTERNAL EAR: Yes external ears normal Neck/C-Spine: COMMON NORMALS: full ROM, no lymphadenopathy, supple, no meningeal signs, no JVD and Thyroid normal THYROID: Thyroid normal Chest: COMMONS NORMALS: normal inspection of the chest and normal palpation of entire chest wall Resp: COMMON NORMALS: normal respiratory effort, No retractions, No use of accessory muscles and clear to auscultation bilaterally AUSCULTATION: clear to auscultation bilaterally Cardio: COMMON NORMALS: no JVD, regular rate, regular rhythm, S1 normal heart sound present, S2 normal heart sound present, No gallops present (Cardio), No clicks present (Cardio), No murmurs present (Cardio) and No rub (Cardio) RATE: regular rate RHYTHM: regular rhythm HEART SOUNDS: S1 normal heart sound present and S2 normal heart sound present GI: OTHER: Abdominal pain generalized pain and distention drainage tube noted bowel sounds prominent in all 4 quadrants no rebound guarding rigidity Neuro: COMMON NORMALS: patient oriented x3 SENSORIUM/ORIENTATION: Yes alert MENINGEAL SIGNS: Yes no meningeal signs Course Vital Signs: Vital signs: Vital Signs Temperature 98.2 F 01/14/23 17:03 Pulse Rate 94 01/14/23 19:31 Respiratory Rate 16 01/14/23 19:31 Blood Pressure 134/97 01/14/23 19:31 Pulse Oximetry 94 01/14/23 19:31 Oxygen Delivery Me thod Room Air 01/14/23 17:03 MDM - Abdominal Pain Medical Decision Making Is here with worsening abdominal pain and fluid retention in her abdomen. Patient's states she is just here for paracentesis secondary to fluid overload due to her cancer. Lab work was obtained which is pretty stable for the patient. CT scan was obtained which showed anasarca increased from the last study. Dr. Rosen was consulted for observation of the patient until paracentesis can be performed tomorrow by radiology. Differential Diagnosis Likely abdominal pain; Unlikely acute appendicitis, calculus of kidney, constipation, diverticulitis, endometriosis, gastroenteritis, pancreatitis or small bowel obstruction Medical Records I reviewed the patient's medical records. Lab Data I reviewed the patient's lab results. 01/14/23 17:20 01/14/23 17:20 Labs/Radiology: Radiology Impressions Abdomen/Pelvis CT 01/14/23 17:11 IMPRESSION: 1. Anasarca. 2. Persistent large pancreatic head mass infiltrating the adjacent gastric antrum and duodenum. 3. Cirrhotic liver with multiple unchanged masses, and stigmata of portal hypertension. 4. Persistent small bilateral pleural effusions with adjacent atelectasis. 5. Large amount of ascites, increased when compared to prior study. 6. Areas of intervention/metastatic implants involving the undersurface of the liver and peritoneum in the pelvis. 7. Interval improvement of ascending colon and proximal transverse colon wall thickening. 8. Interval progression of SMV occlusion. Laboratory Results WBC 10.3 10^3/uL (4.0-10.0) H 01/14/23 17:20 RBC 3.12 10^6/uL (4.1-5.3) L 01/14/23 17:20 Hgb 8.7 g/dL (11.5-15.3) L 01/14/23 17:20 Hct 28.8 % (37.0-47.0) L 01/14/23 17:20 MCV 92.3 fl (81-99) 01/14/23 17:20 MCH 27.9 pg (28.0-34.0) L 01/14/23 17:20 MCHC 30.2 g/dL (30.0-36.0) 01/14/23 17:20 RDW 17.9 % (12.1-15.1) H 01/14/23 17:20 Plt Count 238 10^3/cmm (130-400) 01/14/23 17:20 MPV 10.2 fL (7.4-10.4) 01/14/23 17:20 Neut % (Auto) 85.8 % 01/14/23 17:20 Lymph % (Auto) 5.5 % 01/14/23 17:20 [place] % (Auto) 6.0 % 01/14/23 17:20 Eos % (Auto) 1.6 % 01/14/23 17:20 Baso % (Auto) 0.5 % 01/14/23 17:20 Neut # (Auto) 8.84 10^3/uL (1.8-7.7) H 01/14/23 17:20 Lymph # (Auto) 0.6 10^3/uL (0.8-4.8) L 01/14/23 17:20 [place] # (Auto) 0.6 10^3/uL (0.2-0.9) 01/14/23 17:20 Eos # (Auto) 0.2 10^3/uL (0.0-0.8) 01/14/23 17:20 Baso # (Auto) 0.1 10^3/uL (0.0-0.1) 01/14/23 17:20 Nucleated RBC % (auto) 0 % 01/14/23 17:20 Nucleated RBCs # 0.0 /100WBC 01/14/23 17:20 Sodium 139 mmol/L (136-145) 01/14/23 17:20 Potassium 3.9 mmol/L (3.5-5.1) 01/14/23 17:20 Chloride 106 mmol/L (98-107) 01/14/23 17:20 Carbon Dioxide 24 mmol/L (22-29) 01/14/23 17:20 Anion Gap 12.9 (5-19) 01/14/23 17:20 BUN 16 mg/dL (8-23) 01/14/23 17:20 Creatinine 0.4 mg/dL (0.5-0.9) L 01/14/23 17:20 GFR Calculation 161.2 mL/min (90-130) H 01/14/23 17:20 Glucose 220 mg/dL (65-115) H 01/14/23 17:20 Calculated Osmolality 296 mOsm/kg (285-295) H 01/14/23 17:20 Calcium 8.1 mg/dL (8.5-10.5) L 01/14/23 17:20 Magnesium 1.9 mg/dL (1.7-2.3) 01/14/23 17:20 Total Bilirubin 0.8 mg/dL (0.15-1.2) 01/14/23 17:20 AST 11 U/L (0-32) 01/14/23 17:20 ALT 8 U/L (0-33) 01/14/23 17:20 Alkaline Phosphatase 210 U/L (35-105) H 01/14/23 17:20 Total Protein 6.0 g/dL (6.6-8.7) L 01/14/23 17:20 Albumin 2.3 g/dL (3.5-5.2) L 01/14/23 17:20 Globulin 3.7 g/dL (1.3-4.6) 01/14/23 17:20 Lipase 5 U/L (13-60) L 01/14/23 17:20 Discharge Plan Discharge Patient Disposition: Placed in Observation Clinical Impression: Adenocarcinoma of head of pancreas, Anasarca, Abdominal pain Condition: Stable Prescriptions: No Action pantoprazole [Protonix] 40 mg tablet,delayed release (DR/EC) 40 mg PO BID (DME) Bedside Commode See Rx Instructions .Route .MEDSUPPLY Qty: 1 0RF Rx Instructions: As directed furosemide 40 mg tablet 40 mg PO DAILY Qty: 30 0RF (DME) AP Pad and Pump See Rx Instructions .Route .MEDSUPPLY Qty: 1 0RF Rx Instructions: As directed oxycodone 10 mg tablet,oral only,ext.rel.12 hr 10 mg PO BID 4 Days Qty: 8 0RF acetaminophen [Tylenol Ex Str Rapid Release] 500 mg Tablet 500 mg PO Q6H PRN (Reason: Pain) ondansetron 4 mg tablet,disintegrating 4 mg PO Q8H PRN (Reason: Nausea And Vomiting) insulin aspart U-100 [Novolog FlexPen U-100 Insulin] 100 unit/mL (3 mL) insulin pen See Rx Instructions .ROUTE .COMPLEX Rx Instructions: sliding scale four times a day as needed TPN Electrolytes 35-20-5 mEq/20 mL Solution See Rx Instructions .ROUTE .COMPLEX Rx Instructions: intravenously at night for 12 hours as directed oxycodone 5 mg tablet 5 mg PO Q6H PRN (Reason: pain) Qty: 30 0RF levofloxacin 250 mg/10 mL solution 500 mg PO DAILY tramadol 50 mg tablet 50 mg PO Q6H Referrals: Bob Rosenthal MD [Primary Care Provider] - Coding Level of Care Code ED Feather Curling Machine Operator for Vasyl Le
[2023-01-14] MEDS: fentaNYL 50 mcg/mL INJ 2mL IVP ×2 (17:28→20:14)
[2023-01-14] MEDS: ondansetron 2 mg/ML SDV 2 mL 4 MG IVP (17:28)
[2023-01-14 17:32] LABS: Basophils # 0.1 10^3/uL (0.0-0.1); Basophils % 0.5 %; Eosinophils # 0.2 10^3/uL (0.0-0.8); Eosinophils % 1.6 %; Hematocrit 28.8 % (37.0-47.0); Hemoglobin 8.7 g/dL (11.5-15.3); Lymphocytes # 0.6 10^3/uL (0.8-4.8); Lymphocytes % 5.5 %; Mean Corpuscular HGB Conc 30.2 g/dL (30.0-36.0); Mean Corpuscular Hemoglobin 27.9 pg (28.0-34.0); Mean Corpuscular Volume 92.3 fl (81-99); Mean Platelet Volume 10.2 fL (7.4-10.4); Monocytes # 0.6 10^3/uL (0.2-0.9); Neutrophils # 8.84 10^3/uL (1.8-7.7); Neutrophils % 85.8 %; Nucleated Red Blood Cells % 0 %; Platelet Count 238 10^3/cmm (130-400); Red Blood Count 3.12 10^6/uL (4.1-5.3); Red Cell Distribution Width 17.9 % (12.1-15.1); White Blood Count 10.3 10^3/uL (4.0-10.0)
[2023-01-14 17:49] LABS: Alanine Aminotransferase 8 U/L (0-33); Albumin Level 2.3 g/dL (3.5-5.2); Alkaline Phosphatase 210 U/L (35-105); Anion Gap 12.9 (5-19); Aspartate Amino Transferase 11 U/L (0-32); Blood Urea Nitrogen 16 mg/dL (8-23); Calcium 8.1 mg/dL (8.5-10.5); Carbon Dioxide 24 mmol/L (22-29); Chloride 106 mmol/L (98-107); Globulin 3.7 g/dL (1.3-4.6); Glomerular Filtration Rate 161.2 mL/min (90-130); Glucose 220 mg/dL (65-115); Lipase 5 U/L (13-60); Magnesium 1.9 mg/dL (1.7-2.3); Osmolality Calculated 296 mOsm/kg (285-295); Potassium 3.9 mmol/L (3.5-5.1); Sodium 139 mmol/L (136-145); Total Bilirubin 0.8 mg/dL (0.15-1.2)
[2023-01-14] MEDS: iohexol 350 mg/mL 500 mL Btl (per mL) IV (18:33)
[2023-01-14 19:31] VITALS: BP 134/97; PULSE 94; RESP 16; O2SAT 94
[2023-01-14] MEDS: metoclopramide 5 mg/mL SDV 2 mL 10 MG IVP (20:13)
[2023-01-14 20:55] VITALS: BP 134/97; PULSE 94; RESP 16; TEMP 36.8; O2SAT 94
--- NOTE | 2023-01-14 21:51 | P.HP_ITS ---
Providers/Chief Complaint Admitting Physician: Brendan Rosen MD Primary Care Provider: Bob Rosenthal MD Chief Complaint: abd pain History of Present Illness Angelique Aggarwal is a 62 year old female with a past medical history significant for metastatic pancreatic cancer with gastric outlet obstruction status post palliative draining PEG tube, type 2 diabetes mellitus, and malignancy related pain who presents to the emergency department with worsening abdominal disten tion and pain. Patient reports a history of ascites from her malignancy. Spouse is present and very supportive. He helps provide the history as well. She is reportedly underwent a paracentesis in [place] about 4 and half weeks ago. They are unsure how much was removed but noted there is a fair amount. This was reportedly her first and only paracentesis. Since that time, patient is progressively reaccumulated fluid with symptoms being markedly worse in the last day or 2. Symptoms are sometimes affected by positioning. She is on home opiates but is having increasing trouble taking the opiates due to her gastric outlet obstruction and draining PEG tube. She is not currently on chemotherapy. She follows with Dr. Rosenthal. Patient was treated with fentanyl in the ED. She has an allergy to hydromorphone. She reports she previously had morphine and did okay with it. ED confirmed that radiology would be present on Saturday and able to perform a therapeutic paracentesis. Review of Systems Narrative: A complete review of systems was obtained and is negative except as stated in HPI. Medications/Allergies Home Medications Medication Instructions Recorded Confirmed Last Taken Type pantoprazole 40 mg tablet,delayed 40 mg PO BID 10/25/22 12/28/22 11/24/22 History release (Protonix) Bedside Commode #1 ea 11/06/22 12/28/22 Unknown Rx acetaminophen 500 mg tablet 500 mg PO Q6H PRN Pain 11/20/22 12/28/22 11/24/22 History insulin aspart U-100 100 unit/mL See Rx Instructions .Route .COMPLEX 11/20/22 12/28/22 Unknown History (3 mL) subcutaneous pen (Novolog FlexPen U-100 Insulin aspart) ondansetron 4 mg disintegrating 4 mg PO Q8H PRN Nausea And Vomiting 11/20/22 12/28/22 11/24/22 History tablet oxycodone 5 mg tablet 5 mg PO Q6H PRN pain #30 tabs 11/20/22 12/28/22 Unknown Rx sodium 35 mEq-potassium 20 mEq-mag See Rx Instructions .Route .COMPLEX 11/20/22 12/28/22 11/23/22 History 5 mEq/20 sV-ginnhag-kffoavp-acet IV (TPN Electrolytes) levofloxacin 250 mg/10 mL oral 500 mg PO DAILY 11/24/22 12/28/22 11/23/22 History solution tramadol 50 mg tablet 50 mg PO Q6H 11/24/22 12/28/22 Unknown History furosemide 40 mg tablet 40 mg PO DAILY #30 tabs 11/28/22 12/28/22 Unknown Rx AP Pad and Pump #1 ea 12/28/22 12/28/22 Unknown Rx oxycodone 10 mg tablet,crush 10 mg PO BID 4 days #8 tabs 01/10/23 Unknown Rx resistant,extended release 12 hr Allergies Allergy/AdvReac Type Severity Reaction Status Date / Time hydromorphone Allergy ADR-Vomitin Verified 12/28/22 12:00 g PFSH Acute PFSH: Medical History GERD (gastroesophageal reflux disease) HTN (hypertension) Pancreatic cancer Type 2 diabetes mellitus Surgical History H/O: hysterectomy History of biliary duct stent placement History of bladder suspension procedure History of ERCP (03/15/21) ERCP with biliary stent placement History of esophagogastroduodenoscopy (05/24/21) EGD and ERCP with replacement of biliary stent History of esophagogastroduodenoscopy (EGD) (11/17/21) EGD and endoscopic ultrasound History of exploratory laparotomy (01/23/22) Exploratory laparotomy with cholecystectomy, Chinmay-en-Y hepaticojejunostomy, and placement of feeding jejunostomy Family History Mother Cancer Colon, kidney Diabetes Grandmother Dementia Other Hyperlipidemia Hypertension Suicide Denies family history of CAD (coronary artery disease) Clotting disorder Psychiatric illness Chronic kidney disease (CKD) Anesthesia complication Bleeding disorder Lung disease Stroke Social History Smoking and tobacco status: former smoker Quit status (tobacco): has quit using tobacco Year quit tobacco: 2003 Former quit date comment: 25 py Alcohol intake: never Substance/Drug Use: never Lives independently: Yes Household members: other Details: Ex- Marital status: Vitals/I&O/Wt Last Vital Signs Temp 98.2 F 01/14/23 20:55 Pulse 94 01/14/23 20:55 Resp 16 01/14/23 20:55 BP 134/97 01/14/23 20:55 Pulse Ox 94 01/14/23 20:55 O2 Del Method Room Air 01/14/23 17:03 Weight last 48 hrs Weight 49.895 kg Physical Exam Narrative: General: Patient is awake. Frail and acutely ill appearing. Very pleasant. Head: EOM intact. Temporal wasting. Neck: No JVD. Cardiovascular: RRR. No gallops. No murmurs. No peripheral edema. Lungs: Clear to auscultation, no use of accessory muscles, no crackles or wheezes. Skin: No jaundice. No rashes. Abdomen: Feeding tube present. Small wound below feeding tube foot covered with bandage. Hypoactive bowel sounds. Abdomen is markedly distended with positive fluid wave. Genito Urinary: Genital exam not performed since complaints not related. Rectal: Rectal exam not performed since no symptoms indicated blood loss. Extremities: No cyanosis or clubbing. Musculoskeletal: No erythematous joints. Neurological: Moves all 4 extremities. No myoclonus. Data 01/14/23 17:20 01/14/23 17:20 A&P Assessment and plan (1) Abdominal pain: Secondary to symptomatic ascites Paracentesis requested, labs ordered Continue home pain meds, which are not as effective as they were due to absorption issues given her gastric outlet obstruction Morphine as needed Qualifiers: Abdominal location: generalized Qualified Code(s): R10.84 - Generalized abdominal pain (2) Pancreatic cancer: Complicated by gastric outlet obstruction status post PEG tube Follows with Dr. Rosenthal, not currently on chemotherapy Continue outpatient follow-up (3) Type 2 diabetes mellitus: Sliding-scale insulin correction Avoid hypoglycemia (4) Anasarca: Continue Lasix Plan DVT prophylaxis: SCD Attestations Medical Necessity Statement*: Patient's expected hospitalization not to cross 2 midnights for paracentesis and symptom control. Coding Level of Care Code Acute Code for [facility] Fwd Diagnoses Abdominal pain R10.84 Abdominal location: generalized Pancreatic cancer C25.9 Type 2 diabetes mellitus E11.9 Anasarca R60.1
[2023-01-14 23:38] VITALS: RESP 16
[2023-01-14] MEDS: morphine 4 mg/mL SDV 1 mL IVP (23:38)
[2023-01-15] VITALS (9 sets, daily range): BP systolic 111–127; BP diastolic 75–83; PULSE 85–98; RESP 14–18; TEMP 36.4–37; O2SAT 93–97
[2023-01-15 06:37] LABS: Glucose Point of Care 147 mg/dL (70-110)
[2023-01-15] MEDS: insulin lispro 100 unit/1 mL SUBCUT (07:15)
--- NOTE | 2023-01-15 08:14 | PC.PHAR ---
PT AND PTS VERIFIED MEDICATIONS-PTS STATES THE PT GOT ELIQUIS 5MG BID FROM [place] A PRECAUTIONARY STATES THE PT WAS SUPPOSE TO TAKE 5MG BID BUT STATES SHE ONLY TOOK 5MG DAILY AND STATES SHE HASNT TAKEN FOR 3 WEEKS-PTS STATES THE PT NEVER STARTED THE CIPRO 500MG BID WRITTEN ON 01/10/23 7D/S-NOTES ARE MADE IN THE PHARMACY COMMENTS
--- NOTE | 2023-01-15 09:39 | PC.CHAP ---
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 [] Patient/Family/Request visit [] Outpatient visit [] Follow-up visit [] Physician referral [] Code/Alert [x] Routine visit [] Staff referral [] Actively dying [] Patient sleeping [] Family support [] [] Out of room [] Palliative care [] [] Receiving care in room [] Pre-surgical visit [] Trauma [] Long length of stay [] ICU visit [] Other: Relational/Emotional Strength [x] Patient feels connected with others/family/visitors/staff [] Distress [] Loneliness/isolation [] Abandonment Spirituality of Patient [x] Person of Stefanie [] Attends Sabianism of their Stefanie [x] Believes in Prayer [x] Reads Bible or Protestant materials [] There are Spiritual issues to be addressed Tube Laser 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 Interventions [x] Prayer [x] Active listening [] Non-anxious presence [x] Spiritual/emotional support [] Crisis/trauma care [] Spiritual counseling [] Bereavement support [] Provided bereavement packet [] Provided Bible/devotional materials [] Provided toy/stuffed animal, coloring book to patient or family member [] Provided Communion [] Anointing/[place] [] Salvation [x] Completed spiritual assessment [] Other: Impact on Illness or Injury [] Angry [] Fearful [] Anxious [] Often cries [] Exhaustion [] Unable to work [] Unable to attend church [] Unable to walk/stand [] Unable to read [] Unable to drive [] Unable to eat/drink [] Unable to sleep [] Unable to be with family [] Patient intubated [] Other: Summary Time spent with patient 5 min
[2023-01-15 11:07] LABS: Glucose Point of Care 124 mg/dL (70-110)
[2023-01-15] MEDS: morphine 4 mg/mL SDV 1 mL 2 MG IVP ×2 (11:57→17:23)
--- NOTE | 2023-01-15 12:59 | US_ITS ---
WS: [id number] ULTRASOUND-GUIDED PARACENTESIS CLINICAL INFORMATION: ascites, malignant COMPARISON: None. Procedure Informed consent: The risks, benefits, and alternatives of the procedure were discussed with the flori ent. Verbal and written consent was obtained. Timeout: A timeout was performed to confirm the correct patient, procedure, and site. Preparation: A suitable skin site was identified. The patient was prepped and draped in usual sterile fashion. Lidocaine 1% was used for local anesthesia. Catheter: 4 U[place] One-step Yueh catheter. Side: LEFT Lower quadrant. Fluid Volume: 7000 ml Color: Dark yellow Complications: None. US/US paracentesis abd w [id number] IMPRESSION: Uncomplicated ultrasound-guided paracentesis. Removal of 7000 cc
--- NOTE | 2023-01-15 15:24 | P.PN_ITS ---
Subjective Subjective: Patient is known to me for prior hospice referral. At that time patient and and still wanted to continue TPN. Dr. Rosenthal went to their house all and performed a home visit and at that time they still wish to continue warning measures She presented last night after experiencing a few days of severe pain and increased swelling of her abdomen. She usually does not like to take her short acting medications because she wants to be aware. When she took these medications she did sleep for a couple days straight and was able to maintain relative control over the pain. Unfortunately the has been frustrated with the healthcare system and not knowing what help he can get. 01/15/23. Met with patient and initially and then again with 3 children. I explained to patient and family that I suspect the TPN was the cause of her increased ascitic fluid. That unfortunately a combination of chronic illness malnutrition and the cancer itself is causing leaky vessels and creating worsening pain. They are agreeable to discontinue TPN at this time. We were able to discuss options for care. They did agree with hospice services at that this time. I tried to get a peritoneal drain placed for comfort however no available physician to perform 4 days. Instead, patient will have a paracentesis. And home hospice consult. Vitals/I&O/Wt Last Vital Signs Temp 97.5 F L 01/15/23 11:13 Pulse 90 01/15/23 11:13 Resp 16 01/15/23 11:57 BP 120/80 01/15/23 11:13 Pulse Ox 95 01/15/23 11:13 O2 Del Method Room Air 01/15/23 11:13 Weight last 48 hrs Weight 49.895 kg Physical Exam Narrative: Thin cachectic frail lady who looks uncomfortable. She is in mild distress at time of examination due to pain in the abdomen : Regular normal S1-S2 without loud murmur Lungs: Clear to auscultation anteriorly Abdomen distended abdomen with fluid wave. Positive ascites. 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 I explained to patient and family that I suspect the TPN was the cause of her increased ascitic fluid. That is unfortunately a combination of chronic illness, malnutrition and the cancer itself is causing leaky vessels and creating worsening pain. They are agreeable to discontinue TPN at this time. We were able to discuss options for care. They did agree with hospice services at that this time. I tried to get a peritoneal drain placed for comfort however no available physician to perform until jan 21 and they decline transfer to an other facility. Instead, patient will have a paracentesis. And home hospice consult. Attestations Medical Necessity Statement*: Patient requires hospital level of care for IV pain medication paracentesis co ntrol of symptoms Coding Level of Care Code Acute Code for [facility] Fwd Diagnoses Malignant neoplasm of pancreas metastatic to peritoneum C25.9; C78.6 Ascites R18.8 Abdominal pain R10.84 Abdominal location: generalized
--- NOTE | 2023-01-15 16:09 | PC.NURSE ---
A total of 7L of fluid was drained following paracentesis. Drain removed, 4x4 and micropore tape was applied to incision site. pt tolerated well.
[2023-01-15 16:28] LABS: Glucose Point of Care 114 mg/dL (70-110)
[2023-01-15] MEDS: morphine 10 mg/0.5 mL oral liq UD PO ×2 (19:23→23:01)
[2023-01-15 20:48] LABS: Glucose Point of Care 149 mg/dL (70-110)
[2023-01-16] VITALS (7 sets, daily range): BP systolic 114–121; BP diastolic 74–90; PULSE 93–96; RESP 16–20; TEMP 36.3–36.8; O2SAT 92–96
[2023-01-16] MEDS: morphine 10 mg/0.5 mL oral liq UD PO ×3 (02:58→10:00)
[2023-01-16] MEDS: morphine 4 mg/mL SDV 1 mL 2 MG IVP ×2 (05:26→11:58)
[2023-01-16 06:39] LABS: Glucose Point of Care 121 mg/dL (70-110)
[2023-01-16] MEDS: morphine ER (12 HR) 15 mg Tablet PO ×2 (12:24→17:31)
[2023-01-16] MEDS: morphine 10 mg/0.5 mL oral liq UD 20 MG PO ×2 (14:07→17:31)
[2023-01-16] MEDS: LORazepam 2 mg/mL INJ 1 mL 1 MG IVP (18:00)
== END 2023-01-16 18:10 | disposition hospice, home (50) ==
LOC: ER 20:32 → MEDSURG 20:41
PROVIDERS: Admitting Provider Internal Medicine; Emergency Provider Emergency Medicine; PCP Internal Medicine Medical Oncology; Visit Provider Internal Medicine
DX: R18.8 Other ascites (principal); K74.60 Unspecified cirrhosis of liver; K31.1 Adult hypertrophic pyloric stenosis; J90 Pleural effusion, not elsewhere classified; G89.3 Neoplasm related pain (acute) (chronic); R10.84 Generalized abdominal pain; C25.9 Malignant neoplasm of pancreas, unspecified; C78.6 Secondary malignant neoplasm of retroperitoneum and peritoneum; E11.9 Type 2 diabetes mellitus without complications; I10 Essential (primary) hypertension; Z79.4 Long term (current) use of insulin; Z87.891 Personal history of nicotine dependence
CPT/HCPCS: 36416; 36592; 49083; 74177; 80053; 82962; 83690; 83735; 85025; 85610; 96361; 96372; 96374; 96375; 96376; 99285; A9577; G0378; J1815; J2060; J2270; J2405; J2765; J3010; Q9966; Q9967